=== PATIENT | female | born 1960 | race Caucasian/White ===

== ENCOUNTER → 2016-04-04 | Outpatient (CLI) | payer MEDICARE, OTHER ==
[2016-04-04 15:29] LABS: Blood Urea Nitrogen 15 mg/dL (7-17); Non-African American GFR(MDRD) 51 (>60 ml/min/1.73 sqM)
--- NOTE | 2016-04-04 16:15 | CT ---
EXAMINATION TYPE: CT abdomen pelvis w con DATE OF EXAM: 04/04/2016 3:52 PM COMPARISON: Prior CT scan first of April 2011 CTA abdominal aorta HISTORY: PT STATES OF ABDOMINAL DISTENTION X2 YEARS. CT DLP: 430.6 mGycm Automated exposure control for dose reduction was used. TECHNIQUE: Helical acquisition of images was performed from the lung bases through the pelvis. CONTRAST: Performed with Oral Contrast and with IV Contrast, patient injected with 90 mL of Visipaque 320. FINDINGS: LUNG BASES: There is some honeycombing at the posterior lung bases, prominence of interstitium compat ible with idiopathic pulmonary fibrosis. No pleural or pericardial effusion. LIVER/GB: The liver shows low attenuation and is enlarged compatible with fatty infiltration. Low-att enuation focus within the right lobe shows nodular enhancement likely hemangioma similar to prior exa m. Patient is post cholecystectomy. PANCREAS: No significant abnormality is seen. SPLEEN: No significant abnormality is seen. ADRENALS: No significant abnormality is seen. KIDNEYS: There is a retroaortic left renal vein. RETROPERITONEAL ADENOPATHY: None visualized REPRODUCTIVE ORGANS: Uterus is absent, suspect the left ovarian and right ovarian remnants are in ernie ce and are unremarkable. URINARY BLADDER: No significant abnormality is seen. PELVIC ADENOPATHY: Surgical clips are present in the right groin, no pelvic adenopathy evident. A ga llstone: Restaging of the OSSEOUS STRUCTURES: The appendix is normal. There is thickening along the sigmoid colon, difficult t o exclude a mucosal lesion.. BOWEL: No significant abnormality is seen. OTHER: Abdominal aortic aneurysm in the infrarenal location now measures approximately 4.3 cm in grea test dimension which is increased slightly compared to prior when it measured approximately 4 cm. IMPRESSION: FATTY INFILTRATION OF THE LIVER WITH PROBABLE HEMANGIOMA. INTERVAL INCREASE IN SIZE IN PATIENT'S ABDO ILENE AORTIC ANEURYSM DESCRIBED. POSTOP CHANGES. FINDINGS WITHIN THE SIGMOID COLON DESCRIBED. A DDITIONAL FINDINGS ABOVE.
== END | disposition home or self-care (01) ==
LOC: RADCTMAIN 13:35
PROVIDERS: ATTEND Family Medicine
DX: K76.0 Fatty (change of) liver, not elsewhere classified (principal); I71.4 Abdominal aortic aneurysm, without rupture; Z98.890 Other specified postprocedural states
CPT/HCPCS: 82565; 84520; 74177; 36415; Q9967

== ENCOUNTER → 2016-04-05 | Outpatient (CLI) | payer MEDICARE, OTHER ==
--- NOTE | 2016-04-05 12:41 | FL ---
COMPARISON: NONE HISTORY: Dysphasia A number of thin and thick substances were ingested under the care of the department of speech pathol ogy. There is no evidence of aspiration or penetration. There is previous cervical spine surgery. 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 There is vallecular pooling. IMPRESSION: 1. No evidence of aspiration or penetration.
== END | disposition home or self-care (01) ==
LOC: RADFLMAIN 10:59
PROVIDERS: ATTEND Otolaryngology
DX: R13.10 Dysphagia, unspecified (principal)
CPT/HCPCS: 74230

== ENCOUNTER → 2016-06-01 | Outpatient (CLI) | payer MEDICARE, OTHER ==
--- NOTE | 2016-06-01 14:20 | XR ---
EXAMINATION TYPE: XR wrist complete LT DATE OF EXAM: 06/01/2016 2:16 PM COMPARISON: NONE HISTORY: Pain TECHNIQUE: Four views submitted. FINDINGS: The osseous structures are intact. The joint spaces are preserved and there is no acute fracture or dislocation. Soft tissue edema overlying the dorsum of the wrist noted. IMPRESSION: 1. No definite acute fracture or dislocation if symptoms persist, follow-up study in 7 to 10 days wo uld be suggested. 2. There is soft tissue edema overlying the dorsum of the wrist.
== END ==
LOC: RADXRMAIN 13:56
PROVIDERS: ATTEND Family Medicine
DX: R60.0 Localized edema (principal)

== ENCOUNTER 2016-07-24 17:12 | Inpatient (IN) | payer MEDICARE, OTHER ==
[2016-07-24] MEDS ORDERED: IPRATROPIUM-ALBUTEROL 3 ML NEB INHALATION STA (17:35)
[2016-07-24] MEDS ORDERED: NITROGLYCERIN SL TABS 0.4 MG TAB SUBLINGUAL STA (17:35)
--- NOTE | 2016-07-24 17:46 | ED ---
Chest Pain HPI - General Chief Complaint: Chest Pain Stated Complaint: chest & throat pain Time Seen by Provider: 07/24/16 17:25 Source: patient, RN notes reviewed Mode of arrival: wheelchair Limitations: no limitations - History of Present Illness Initial Comments: This is a 55-year-old female history of peripheral vascular disease but no history of heart disease who had the onset earlier today of chest pain mostly mid sternal sharp and tight in nature moderate in severity some associated shortness breath. She has no cough or phlegm production fevers chills or sweats she has been doing yardwork. Chills as had diaphoresis with this pain and some difficulty breathing. She denies any phlegm production MD Complaint: chest pain - Related Data Home Medications Medication Instructions Recorded Confirmed ALPRAZolam [Xanax] 0.5 mg PO BID PRN 03/07/15 07/24/16 Fenofibrate 160 mg PO DAILY 03/07/15 07/24/16 Magnesium Oxide [Mag-Ox] 400 mg PO DAILY 03/07/15 07/24/16 oxyCODONE-APAP 10-325MG [Percocet 1 tab PO Q8HR PRN 03/07/15 07/24/16 10-325 mg] Aspirin 81 mg PO DAILY 07/24/16 07/24/16 Ergocalciferol [Vitamin D2 50,000 unit PO Q14D 07/24/16 07/24/16 (DRISDOL)] FLUoxetine HCL [PROzac] 40 mg PO DAILY 07/24/16 07/24/16 Omeprazole [PriLOSEC] 20 mg PO DAILY 07/24/16 07/24/16 Previous Rx's Medication Instructions Recorded Atorvastatin [Lipitor] 40 mg PO DAILY #30 tab 03/13/15 Allergies Allergy/AdvReac Type Severity Reaction Status Date / Time amoxicillin Allergy Itching Verified 07/24/16 18:08 diazepam [From Valium] Allergy Hallucinati Verified 07/24/16 18:08 ons erythromycin base Allergy Nausea & Verified 07/24/16 18:08 Vomiting STEROIDS AdvReac EYE Uncoded 07/24/16 19:06 PROBLEMS Review of Systems ROS Statement: Those systems with pertinent positive or pertinent negative responses have been documented in the HPI. ROS Other: All systems not noted in ROS Statement are negative. EKG Findings - EKG Results: EKG: interpreted by ERMD, sinus rhythm (Normal sinus rhythm rate of 90. Interval 150 to QRS of 86 daily since QTC of 362/442 this is a normal-appearing EKG) Past Medical History Past Medical History: Hyperlipidemia, Hypertension Additional Past Medical History / Comment(s): periods of syncopy History of Any Multi-Drug Resistant Organisms: None Reported Past Surgical History: Back Surgery, Orthopedic Surgery Additional Past Surgical History / Comment(s): carotid artery surgery. neck and back sx, rt thumb sx for trigger thumb, fem pop bypass rt side, Past Anesthesia/Blood Transfusion Reactions: No Reported Reaction Past Psychological History: Anxiety Smoking Status: Current every day smoker Past Alcohol Use History: None Reported Additional Past Alcohol Use History / Comment(s): smokes 1/2 ppd for past 30 yrs Past Drug Use History: None Reported - Past Family History Mother Family Medical History: Hyperlipidemia, Hypertension Sister(s) Family Medical History: Diabetes Mellitus General Exam - General Exam Comments Initial Comments: This is a well-developed well-nourished awake alert anxious appearing female she is tearful. Limitations: no limitations General appearance: alert, anxious, in distress Head exam: Present: atraumatic, normocephalic, normal inspection Eye exam: Present: normal appearance, PERRL, EOMI. Absent: scleral icterus, conjunctival injection, periorbital swelling ENT exam: Present: normal exam, mucous membranes moist Neck exam: Present: normal inspection. Absent: tenderness, meningismus, lymphadenopathy Respiratory exam: Present: chest wall tenderness, decreased breath sounds. Absent: respiratory distress, wheezes, rales, rhonchi, stridor Cardiovascular Exam: Present: regular rate, normal rhythm, normal heart sounds. Absent: systolic murmur, diastolic murmur, rubs, gallop, clicks GI/Abdominal exam: Present: soft, normal bowel sounds. Absent: distended, tenderness, guarding, rebound, rigid Extremities exam: Present: normal inspection, full ROM, normal capillary refill. Absent: tenderness, pedal edema, joint swelling, calf tenderness Back exam: Present: normal inspection Neurological exam: Present: alert, oriented X3, CN II-XII intact Psychiatric exam: Present: normal affect, normal mood Skin exam: Present: warm, intact, normal color, diaphoretic. Absent: rash Course Vital Signs 07/24/16 07/24/16 07/24/16 17:20 17:35 17:50 Temperature 97.8 F Pulse Rate 98 80 92 Respiratory 20 20 Rate Blood Pressure 175/97 125/80 O2 Sat by Pulse 98 100 Oximetry 07/24/16 07/24/16 07/24/16 17:56 18:01 18:21 Temperature Pulse Rate 97 94 Respiratory 22 Rate Blood Pressure 123/77 152/67 O2 Sat by Pulse 99 Oximetry 07/24/16 07/24/16 07/24/16 19:21 20:00 21:15 Temperature Pulse Rate 88 88 92 Respiratory 20 20 20 Rate Blood Pressure 140/80 144/80 138/68 O2 Sat by Pulse 99 99 99 Oximetry 07/24/16 22:15 Temperature Pulse Rate 98 Respiratory 20 Rate Blood Pressure 139/76 O2 Sat by Pulse 99 Oximetry Chest Pain MDM - MDM Patient still complains of chest pain does seem to be totally reproducible however but atypical with some radiation. Initial cardiac workup was negative x -rays are nonspecific CAT scan does show evidence of a abdominal aortic aneurysm that the patient has no bowel however does produce get somewhat larger. No evidence of a leak. She denies any abdominal pain or back pain. The symptoms the patient's risks patient will be admitted for evaluation of chest pain with consultation from cardiology as well as vascular surgery. Disposition Clinical Impression: Atypical chest pain, Chest wall syndrome Disposition: ADMITTED IP TO THIS [facility] Condition: Stable Referrals: Fredy Pope DO [Primary Care Provider] - 1-2 days
[2016-07-24 17:52] LABS: Basophils # (A) 0.1 k/uL (0-0.2); Basophils % (A) 1 %; CH 28.6; CHCM 32.8; Eosinophils # (A) 0.3 k/uL (0-0.7); Eosinophils % (A) 5 %; HCT 38.7 % (34.0-46.0); HDW 2.55; HGB 12.5 gm/dL (11.4-16.0); Luc # (Auto) 0.15; Luc % (Auto) 3; Lymphocytes # (A) 1.3 k/uL (1.0-4.8); Lymphocytes % (A) 21 %; MCH 28.2 pg (25.0-35.0); MCHC 32.3 g/dL (31.0-37.0); MCV 87.5 fL (80.0-100.0); Mean Platelet Volume 6.8; Monocytes # (A) 0.4 k/uL (0-1.0); Monocytes % (A) 7 %; Neutrophils % (A) 64 %; RBC 4.43 m/uL (3.80-5.40); RDW 14.6 % (11.5-15.5); WBC 6.2 k/uL (3.8-10.6); WBC (Perox) 6.31
[2016-07-24 18:10] LABS: Partial Thromboplastin Time 26.4 sec (22.0-30.0); Prothrombin Time 10.6 sec (9.0-12.0)
[2016-07-24 18:11] LABS: Calcium 9.9 mg/dL (8.4-10.2); Magnesium 1.7 mg/dL (1.6-2.3); Total Bilirubin 0.6 mg/dL (0.2-1.3); Total Protein 7.2 g/dL (6.3-8.2)
[2016-07-24] MEDS ORDERED: diphenhydrAMINE 50 MG/ML 1 ML VIAL IVP STA (18:11)
--- NOTE | 2016-07-24 18:18 | XR ---
EXAMINATION TYPE: XR chest 2V DATE OF EXAM: 07/24/2016 6:12 PM COMPARISON: 03/13/2015 HISTORY: Chest pain TECHNIQUE: Frontal and lateral views of the chest are obtained. FINDINGS: Heart is normal. Lungs are clear of consolidation. There are no hilar masses. There are ch est leads. Thoracic aorta is atheromatous. There is no pleural effusion. IMPRESSION: No active cardiopulmonary disease. No change.
[2016-07-24 18:28] LABS: Creatine Kinase 124 U/L (30-135)
[2016-07-24 18:41] LABS: Creatine Kinase MB 1.6 ng/mL (0.0-2.4); Troponin I <0.012 ng/mL (0.000-0.034)
[2016-07-24] MEDS ORDERED: SODIUM CHLORIDE 0.9% 1,000 ML IV STA (19:04)
[2016-07-24] MEDS ORDERED: MAGNESIUM SULFATE-D5W PMX 1 GM in DEXTROSE/WATER 1 100ML.BAG IVPB ONE (19:05)
[2016-07-24] MEDS ORDERED: RX INFO: IV CONTRAST WAS GIVEN 1 EACH MISC MISCELLANE PRN (19:11)
--- NOTE | 2016-07-24 21:57 | CT ---
EXAMINATION TYPE: CT angio thoracic/abd aorta DATE OF EXAM: 07/24/2016 9:27 PM COMPARISON: NONE HISTORY: Chest pain and pressure CT DLP: 688.3 mGycm Automated exposure control for dose reduction was used. CONTRAST: Performed with IV Contrast, patient injected with 80 mL of Visipaque 320. FINDINGS: There are 3-D post processed images. There are small emphysematous blebs at the lung apices. There is no sign of a pulmonary mass. Thoracic aorta shows atherosclerotic plaque formation. There is more extensive plaque in the lower ab dominal aorta. There is a 3.5 cm fusiform lower abdominal aortic aneurysm. There is thrombus that teresa sures up to almost 2 cm. There is focal bulging of the lower abdominal aorta posteriorly to the left side. I see no contrast extravasation. The liver spleen pancreas appear normal. There are clips from cholecystectomy. There is patency of th e superior mesenteric artery and the celiac artery. There is bilateral patency of the renal arteries. Kidneys have fairly normal size and contour. There is no hydronephrosis. Bladder distends smoothly. There is moderate plaque formation involving the iliac arteries. 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 I see no definite hemodynamically significant stenosis. I see no intes tinal wall thickening. There are no dilated loops. IMPRESSION: THERE IS A 3.5 CM LOWER ABDOMINAL AORTIC ANEURYSM WITH IRREGULAR PLAQUE FORMATION AND FOCAL ANEURYSMA L CHANGE POSTERIORLY ON THE LEFT SIDE. NO EVIDENCE OF LEAKAGE. 1.5 CM ANEURYSM OF THE DISTAL LEFT COM MON ILIAC ARTERY. THE ANEURYSM OF THE AORTA HAS PROGRESSED COMPARED TO OLD CT SCAN OF 04/21/2011. AORTA HAS INCREASED FROM 2.5 CM TO 3.5 CM SINCE LAST EXAM. IRREGULAR LEFT SIDE OF THE ANEURYSM IS SIGNIFIC ANTLY WORSE AND I THINK THAT FOLLOW-UP IS WARRANTED.
[2016-07-24] MEDS ORDERED: HEPARIN SODIUM,PORCINE 5,000 UNIT/ML 1 ML VIAL IV ONE (22:55)
[2016-07-24] MEDS ORDERED: NITROGLYCERIN SL TABS 0.4 MG TAB SUBLINGUAL PRN (22:55)
[2016-07-24] MEDS ORDERED: ALPRAZolam 0.5 MG TAB PO PRN (22:59)
[2016-07-24] MEDS ORDERED: oxyCODONE-APAP 10-325MG 1 EACH TAB PO PRN (22:59)
[2016-07-24] MEDS ORDERED: HEPARIN SODIUM,PORCINE/D5W PMX 25,000 UNIT in DEXTROSE/WATER 1 500ML.BAG IV SCH (23:00)
[2016-07-24] MEDS ORDERED: ERGOCALCIFEROL 50,000 UNIT CAP PO SCH (23:00)
[2016-07-24] MEDS ORDERED: SODIUM CHLORIDE 0.9% 1,000 ML IV SCH (23:00)
[2016-07-24] MEDS ORDERED: NICOTINE 14MG/24HR PATCH TRANSDERM STA (23:06)
[2016-07-25 00:10] VITALS: BMI 23.0
[2016-07-25] MEDS: NITROGLYCERIN OINT 1 INCH/GM PACKET TOPICAL SCH ×5 (00:25→23:50)
[2016-07-25 00:35] LABS: Creatine Kinase 95 U/L (30-135)
[2016-07-25 00:49] LABS: Creatine Kinase MB 1.2 ng/mL (0.0-2.4); Troponin I <0.012 ng/mL (0.000-0.034)
[2016-07-25 06:50] LABS: Cholesterol 120 mg/dL (<200); HDL Cholesterol 38 mg/dL (40-60); Triglycerides 123 mg/dL (<150)
[2016-07-25 07:12] LABS: Creatine Kinase 82 U/L (30-135)
[2016-07-25 07:24] LABS: Troponin I <0.012 ng/mL (0.000-0.034)
[2016-07-25] MEDS ORDERED: REGADENOSON 0.4 MG/5 ML SYRINGE IV ONE (07:35)
[2016-07-25] MEDS ORDERED: AMINOPHYLLINE 500 MG/20 ML VIAL IV PRN (07:35)
--- NOTE | 2016-07-25 08:22 | CONS ---
DATE OF CONSULTATION: CHIEF COMPLAINT: Chest pain. Rosamaria is a 55-year-old lady with history of peripheral vascular disease, status post surgery over the right leg. Carotid stenosis, status post right carotid endarterectomy, who presented to hospital with symptoms of chest pain. She has as part of her work-up she underwent a CT scan of the chest that revealed a 3.5 cm lower abdominal aortic aneurysm, which has grown somewhat compared to her previous work-up. She however does not have any symptoms referable to abdominal aortic aneurysm. The chest discomfort is precordial without definite radiation to neck, arm or back unassociated with diaphoresis and unrelated to exertion. Her d-dimer was slightly elevated. CT scan of the chest was done, which for unclear reasons has not commented on for pulmonary embolism but has had an extensive discussion about the aorta. At the time of my evaluation this morning, she is pain free, hemodynamically stable and in no apparent distress. Past medical history is significant for peripheral vascular disease and dyslipidemia, and chronic back pain. Medications include: 1. Xanax. 2. Fenofibrate. 3. Lipitor. 4. Aspirin. 5. Prilosec. 6. Prozac. 7. Percocet. ALLERGIC TO AMOXICILLIN, VALIUM, ERYTHROMYCIN AND STEROIDS. FAMILY HISTORY: Negative for premature coronary artery disease. Social history is significant for smoking. There is no history of ETOH abuse, or drug abuse. REVIEW OF SYSTEMS: HEENT: Unremarkable. CARDIAC: As described above. RESPIRATORY: Negative. GI: Negative. GENITOURINARY: Negative. MUSCULOSKELETAL: Significant for arthritis. PSYCHOSOCIAL: Negative. ENDOCRINE: Negative. DERM: Negative. CONSTITUTIONAL: Negative. Oncological: Negative. The rest of the system review is not relevant. On exam, she is comfortable at rest. Vital signs are stable. There is no jugular venous distention. Carotid upstroke is normal. There is no bruit. Chest exam reveals good air entry bilaterally. Heart exam reveals first and second heart sounds. Systolic murmur in the left lower sternal border. Abdomen soft. Exam of the extremities reveals diminished pulses over both dorsalis pedis, ( ) pulses are diminished. Labs show that the cardiac enzymes are negative. D-dimer is slightly elevated. ASSESSMENT: Chest pain seems atypical. PLAN: I am going to obtain stress test on her. If this is negative, she can be discharged home. If this is abnormal, we can consider further work-up and see if we can get any information on the pulmonary arteries from the CT chest that she had. If not, we can get a V/Q scan.
[2016-07-25] MEDS ORDERED: ASPIRIN 325 MG TAB PO SCH (09:00)
[2016-07-25] MEDS: ENOXAPARIN 40 MG/0.4 ML SYRINGE SQ SCH (10:32)
[2016-07-25] MEDS: FLUoxetine HCL 20 MG CAP PO SCH (10:34)
[2016-07-25] MEDS: ATORVASTATIN 40 MG TAB PO SCH (10:34)
[2016-07-25] MEDS: FENOFIBRATE 160 MG TAB PO SCH (10:34)
[2016-07-25] MEDS: MAGNESIUM OXIDE 400 MG TAB PO SCH (10:34)
[2016-07-25] MEDS: PANTOPRAZOLE 40 MG TABLET PO SCH (10:34)
--- NOTE | 2016-07-25 10:37 | ECHOF ---
Referral Reason:Chest pain MEASUREMENTS -------- HEIGHT: 162.6 cm WEIGHT: 60.3 kg BP: 91/55 IVSd: 1.1 cm (0.6 - 1.1) LVIDd: 3.2 cm (3.9 - 5.3) LVPWd: 1.2 cm (0.6 - 1.1) IVSs: 1.7 cm LVIDs: 1.4 cm LVPWs: 1.9 cm Ao Diam: 2.8 cm (2.0 - 3.7) AV Cusp: 1.9 cm (1.5 - 2.6) LA Diam: 3.0 cm (2.7 - 3.8) MV EXCURSION: 12.842 mm (> 18.000) MV EF SLOPE: 70 mm/s (70 - 150) EPSS: 0.4 cm MV E Russ: 0.87 m/s MV DecT: 173 ms MV A Russ: 0.80 m/s MV E/A Ratio: 1.09 RAP: 5.00 mmHg RVSP: 27.03 mmHg FINDINGS -------- Sinus rhythm. This was a technically good study. There is borderline concentric left ventricular hypertrophy. Overall left ventricular systolic function is normal with, an EF between 55 - 60 %. The right ventricle is normal in size and function. The left atrium is normal in size. The right atrium is normal in size. The aortic valve was not well visualized. Mild mitral regurgitation is present. Trace tricuspid regurgitation present. The right ventricular systolic pressure, as measured by Doppler, is 27.03mmHg. The pulmonic valve was not well visualized. The aortic root size is normal. The pericardium is normal. CONCLUSIONS -------- 1. Sinus rhythm. 2. Trace tricuspid regurgitation present. 3. The right ventricular systolic pressure, as measured by Doppler, is 27.03mmHg. 4. The pulmonic valve was not well visualized. 5. The aortic root size is normal. 6. The pericardium is normal. 7. This was a technically good study. 8. There is borderline concentric left ventricular hypertrophy. 9. Overall left ventricular systolic function is normal with, an EF between 55 - 60 %. 10. The right ventricle is normal in size and function. 11. The left atrium is normal in size. 12. The right atrium is normal in size. 13. The aortic valve was not well visualized. 14. Mild mitral regurgitation is present. CONFIGURATION SPECIALIST: Deirdre Giron RDCS
--- NOTE | 2016-07-25 10:52 | NM ---
EXAMINATION TYPE: NM stress lexiscan cardiolite DATE OF EXAM: 07/25/2016 COMPARISON: NONE HISTORY: Chest pain TECHNIQUE: After the intravenous administration of 10.84 mCi Tc 99m Sestamibi - Cardiolite resting S PECT images acquired 45 minutes post injection. The patient received 0.4mg Lexiscan, 27.2 mCi Tc 99m Sestamibi - Stress images obtained [address] injection FINDINGS: Review of stress and rest SPECT images demonstrates no distinct perfusion abnormality on stress as co mpared to rest images. Gated analysis shows normal wall motion with an estimated left ventricular ej ection fraction of 68 %. IMPRESSION: No scintigraphic evidence for reversible ischemia. Consider echocardiography for elevated ejection fr action.
--- NOTE | 2016-07-25 11:09 | EST ---
DATE OF SERVICE: 07/25/2016 AGE: 55Y SEX: F HT: 5'4" WT: 125 lbs. Protocol Alvaro: Other: Lexiscan Cardiolite Stage: Dur. of Exercise: *Heart Rate Blood Pressure *Rest: 78 Rest: 119/90 * *Max. Achieved: 107 Maximum BP: 122/54 85% PMHR: 141 100% PMHR: 166 *METS: INDICATION OF THE STUDY: Chest discomfort. MEDICATIONS: STRESS DATA: Pretesting physical examination showed a heart rate of 78, pressure is 119/90 mmHg. Baseline EKG showed sinus rhythm. A 0.4 mg of Lexiscan was given to the patient over 15 seconds per protocol. The max heart rate was 107 beats per minute. The maximum blood pressure was 122/54 mmHg. Clinically, the patient did not have any symptoms of chest pain or discomfort. The EKG did not show any significant ST or T wave abnormalities consistent with ischemia. CONCLUSION: 1. Nondiagnostic electrocardiogram stress testing in response to Lexiscan. 2. Please follow up on the Cardiolite portion on a separate report from the radiology department.
[2016-07-25] MEDS ORDERED: RX INFO: IV CONTRAST WAS GIVEN 1 EACH MISC MISCELLANE PRN (13:37)
[2016-07-25] MEDS: NICOTINE 21MG/24HR PATCH TRANSDERM SCH (14:39)
--- NOTE | 2016-07-25 18:18 | HP ---
DATE OF ADMISSION: 07/25/2016 PRESENTING COMPLAINT: Chest pain. HISTORY OF PRESENTING COMPLAINT: This is a very pleasant 55-year-old patient of Dr. Pope. Patient's chronic stable medical conditions include anxiety, hypercholesterolemia, hypertension, peripheral artery disease, chronic kidney disease, arthritis and pain in neck. Follows with Dr. Hill. Patient also has got emphysema. Patient continues to smoke. Patient presented with chest pressure for 2 days, feels like an elephant sitting on her chest. Has been short of breath and no dizziness. Had episodes of perspiration, present on and off. Denies any wheezing. Admitted for the same for cardiac work-up. REVIEW OF SYSTEMS: CONSTITUTIONAL: Tired. HEENT: None. RESPIRATORY: Occasionally short of breath. CARDIOVASCULAR: As above. GASTROINTESTINAL: None. GENITOURINARY: None. MUSCULOSKELETAL: Pain in the joints. Dermatological: None. HEMATOLOGICAL: None. LYMPHATICS: None. PSYCHIATRY: None. NEUROLOGICAL: None. Past medical history: Anxiety, hypercholesterolemia, hypertension, peripheral artery disease, chronic kidney disease, carotid artery disease, smoking. PAST SURGICAL HISTORY: Back surgery, neck surgery and carotid surgery. SOCIAL HISTORY: Lives by herself. Patient pretty much smokes close to a pack a day for many years. Denies alcohol. HOME MEDICATIONS: 1. Percocet 10 one tablet q.8 p.r.n. 2. Magnesium oxide 400 mg a day. 3. TriCor 160 mg a day. 4. Xanax 0.5 p.o. b.i.d. 5. Prilosec 20 mg a day. 6. Prozac 40 mg a day. 7. Vitamin D2, 50,000 units every 14 days. 8. Aspirin 81 mg a day. 9. Lipitor 40 mg a day. ALLERGIES: AMOXICILLIN, VALIUM AND ERYTHROMYCIN, STEROIDS. On examination, temperature 98.5, pulse ox 99, respirations 18, blood pressure 127/86, pulse ox 96% on room air. GENERAL APPEARANCE: Average build, sitting up, not in distress. EYES: Pupils equal. Conjunctivae normal. HEENT: Oral cavity normal. NECK: JVD is not raised. Mass not palpable. RESPIRATORY: Effort normal. LUNGS: Diminished breath sounds. CARDIOVASCULAR: First and second sounds normal. No edema. ABDOMEN: Soft, nontender. Liver and spleen not palpable. LYMPHATIC: No lymph node palpable in neck or axillae. PSYCHIATRY: Alert and oriented x3. Mood and affect normal. NEUROLOGICAL: Pupils equal. Cranial nerves grossly intact. Power and sensation grossly intact. INVESTIGATIONS: White count 6.2, hemoglobin 12. Potassium 4.0, BUN 23, creatinine 1.30, LDL 57. EKG shows normal sinus rhythm. Patient had CT angiogram of the aorta, 3.5 cm lower abdominal aortic aneurysm and the left common iliac artery is 0.5 cm aneurysm. 2-D echocardiogram shows no wall motion abnormality and an EF is 55% to 60%. ASSESSMENT: 1. Unstable angina in a patient with multiple vascular problems including carotid stenosis, peripheral artery disease. Patient continues to smoke and chronic kidney disease, rather cardiac sounding presentation. 2. Chronic nicotine dependence. Patient is a smoker. 3. Emphysema in an active smoker. 4. Chronic anxiety, controlled. 5. Hypercholesterolemia. 6. Essential hypertension. 7. Peripheral artery disease. 8. Chronic kidney disease, stage II and hypertensive nephrosclerosis. 9. Aortic aneurysm 3.5 cm. PLAN: Cardiology is consulted who ordered a stress test. Patient has an aortic aneurysm of 3.1 cm, some progression at this point, ( ) number. Care was discussed with patient and his significant other. We will give a nicotine patch. We will order a CT angiogram, ( ) to be done tomorrow morning. In the meantime, we will continue patient with ( ). We will put the patient on therapeutic dose of Lovenox. Patient needs to be hospitalized at least for 2 days to rule this problem out.
[2016-07-25] MEDS: SODIUM CHLORIDE 0.9% 1,000 ML IV SCH (21:08)
[2016-07-26 06:06] LABS: Calcium 9.5 mg/dL (8.4-10.2); Potassium 4.5 mmol/L (3.5-5.1)
[2016-07-26] MEDS: SODIUM CHLORIDE 0.9% 1,000 ML IV SCH (06:36)
[2016-07-26] MEDS: NITROGLYCERIN OINT 1 INCH/GM PACKET TOPICAL SCH ×2 (06:36→11:53)
[2016-07-26 07:11] VITALS: RESP 16
--- NOTE | 2016-07-26 08:56 | PN ---
55-year-old lady who was admitted to hospital with chest pain, ruled out for myocardial infarction, had a stress test yesterday that revealed normal myocardial perfusion function. I reviewed her echo also. She has extensive history of peripheral vascular disease and was found to have incidental abdominal aortic aneurysm, which is not large enough to require any intervention at this time. The patient has a history of carotid stenosis and underwent right carotid endarterectomy in the past. The patient had unexplained elevated d-dimer and she apparently having a CT scan of the chest today to complete her work-up. On exam, she is comfortable at rest. Vital signs are stable. There is no jugular venous distention. Carotid upstroke is normal. There is no bruit. Chest is clear to auscultation and percussion. Heart exam reveals first and second heart sounds. No gallop. No murmur. Abdomen soft, nontender. Exam of extremities did not reveal edema. Peripheral pulses are felt. Patient is currently on aspirin, Lipitor and Lofibra, Nitro-Bid and sublingual nitroglycerin p.r.n. basis. Please discharge her home on the same medications including Imdur 30 mg daily. I will follow her up in my office and we will see how she does clinically. Thank you for allowing me to participate in the care of this pleasant lady.
[2016-07-26] MEDS ORDERED: ASPIRIN 81 MG CHEW PO SCH (09:00)
--- NOTE | 2016-07-26 09:50 | P.GSCN ---
<Deirdre Mims - Last Filed: 07/26/16 09:41> History of Present Illness Consult date: 07/26/16 Reason for Consult: Abdominal aortic aneurysm, treatment recommendations Requesting physician: Jaya George History of present illness: This 55 year old female presented to ER with c/o substernal chest pain which was worse with deep inspiration and laying down. She denied shortness of breath /nausea/vomitting. She was admitted for cardiac workup. In the course of her workup she had a CT of the chest which demonstrated a 3.5 cm abdominal aortic aneurysm. This was compared to a CT from 2011 when her AAA was 2.5 cm. Due to the increase in size, Dr. Freeman was consulted for treatment recommendations. She denies any abdominal pain. Review of Systems 14 point review of systems was completed and was negative except as noted. - Cardiovascular Reports as per HPI - Respiratory Reports as per HPI Past Medical History Past Medical History: GERD/Reflux, Hyperlipidemia, Hypertension, Syncope Additional Past Medical History / Comment(s): periods of syncopy History of Any Multi-Drug Resistant Organisms: None Reported Past Surgical History: Back Surgery, Hysterectomy, Orthopedic Surgery Additional Past Surgical History / Comment(s): carotid artery surgery. neck and back sx, rt thumb sx for trigger thumb, fem pop bypass rt side, partial hysterectomy, left tube and uterus removed Past Anesthesia/Blood Transfusion Reactions: No Reported Reaction Past Psychological History: Anxiety Smoking Status: Current every day smoker Past Alcohol Use History: None Reported Additional Past Alcohol Use History / Comment(s): smokes 1 ppd for past 30 yrs Past Drug Use History: None Reported - Past Family History Mother Family Medical History: Hyperlipidemia, Hypertension Sister(s) Family Medical History: Diabetes Mellitus Father Family Medical History: Hyperlipidemia Additional Family Medical History / Comment(s): On heart meds. Blocked arteries Medications and Allergies Home Medications Medication Instructions Recorded Confirmed Type ALPRAZolam [Xanax] 0.5 mg PO BID PRN 03/07/15 07/24/16 History Fenofibrate 160 mg PO DAILY 03/07/15 07/24/16 History Magnesium Oxide [Mag-Ox] 400 mg PO DAILY 03/07/15 07/24/16 History oxyCODONE-APAP 10-325MG [Percocet 1 tab PO Q8HR PRN 03/07/15 07/24/16 History 10-325 mg] Aspirin 81 mg PO DAILY 07/24/16 07/24/16 History Ergocalciferol [Vitamin D2 50,000 unit PO Q14D 07/24/16 07/24/16 History (DRISDOL)] FLUoxetine HCL [PROzac] 40 mg PO DAILY 07/24/16 07/24/16 History Omeprazole [PriLOSEC] 20 mg PO DAILY 07/24/16 07/24/16 History Allergies Allergy/AdvReac Type Severity Reaction Status Date / Time amoxicillin Allergy Itching Verified 07/24/16 23:54 diazepam [From Valium] Allergy Hallucinati Verified 07/24/16 23:54 ons erythromycin base Allergy Nausea & Verified 07/24/16 23:54 Vomiting STEROIDS AdvReac EYE Uncoded 07/24/16 23:54 PROBLEMS Surgical - Exam Vital Signs Temp Pulse Resp BP Pulse Ox 97.8 F 98 20 175/97 98 07/24/16 17:20 07/24/16 17:20 07/24/16 17:20 07/24/16 17:20 07/24/16 17:20 - General well developed, well nourished, no distress, no pain - Eyes PERRL, normal ocular movement - ENT no hearing loss - Neck trachea midline - Respiratory normal expansion, normal respiratory effort, clear to auscultation - Cardiovascular Rhythm: regular Heart Sounds: normal: S1, S2 - Abdomen No palpable mass Abdomen: soft, non tender, bowel sounds - Genitourinary Deferred - Rectum Deferred - Integumentary no rash - Neurologic normal coordination, normal sensation - Musculoskeletal normal gait - Psychiatric oriented to time, oriented to person, oriented to place, speech is normal, memory intact Results - Labs 07/24/16 17:30 07/26/16 05:36 Abnormal Lab Results - Last 24 Hours (Table) 07/26/16 Range/Units 05:36 Creatinine 1.20 H (0.52-1.04) mg/dL Diabetes panel 07/26/16 Range/Units 05:36 Sodium 137 (137-145) mmol/L Potassium 4.5 (3.5-5.1) mmol/L Chloride 102 (98-107) mmol/L Carbon Dioxide 26 (22-30) mmol/L BUN 17 (7-17) mg/dL Creatinine 1.20 H (0.52-1.04) mg/dL Glucose 97 (74-99) mg/dL Calcium 9.5 (8.4-10.2) mg/dL Calcium panel 07/26/16 Range/Units 05:36 Calcium 9.5 (8.4-10.2) mg/dL Pituitary panel 07/26/16 Range/Units 05:36 Sodium 137 (137-145) mmol/L Potassium 4.5 (3.5-5.1) mmol/L Chloride 102 (98-107) mmol/L Carbon Dioxide 26 (22-30) mmol/L BUN 17 (7-17) mg/dL Creatinine 1.20 H (0.52-1.04) mg/dL Glucose 97 (74-99) mg/dL Calcium 9.5 (8.4-10.2) mg/dL Adrenal panel 07/26/16 Range/Units 05:36 Sodium 137 (137-145) mmol/L Potassium 4.5 (3.5-5.1) mmol/L Chloride 102 (98-107) mmol/L Carbon Dioxide 26 (22-30) mmol/L BUN 17 (7-17) mg/dL Creatinine 1.20 H (0.52-1.04) mg/dL Glucose 97 (74-99) mg/dL Calcium 9.5 (8.4-10.2) mg/dL - Imaging Chest x-ray: image reviewed CT scan - chest: image reviewed EKG: image reviewed Assessment and Plan (1) Abdominal aortic aneurysm Status: Acute (2) Hypertension Status: Acute (3) Hyperlipidemia Status: Acute (4) Tobacco dependence Status: Acute (5) S/P carotid endarterectomy Status: Acute (6) Atypical chest pain Status: Acute (7) Peripheral artery disease Status: Acute Plan: The patient was seen and examined. She is in no acute distress. Currently denies pain. Chart/diagnostics were reviewed. Case was discussed with Dr. Freeman. No surgical intervention, will continue to monitor abdominal aortic aneurysm. Follow up appointment made with Dr. Freeman. Recommend lifestyle modification including blood pressure control, heart healthy diet, refrain from smoking, increase activity and continued follow up appointment. Thank you for the consult. Please call us with any questions. Time with Patient: Greater than 30 <Tom Freeman - Last Filed: 07/27/16 10:20> History of Present Illness History of present illness: [employer] SERVICE MANAGER note reviewed and accepted. 1 cm change in infrarenal abdominal aortic aneurysm in 5 years. No need for change in current treatment patterns. Will follow-up in the office for surveillance of the abdominal aortic aneurysm. Surgical - Exam Osteopathic Statement: *. No significant issues noted on an osteopathic structural exam other than those noted in the History and Physical/Consult. Vital Signs Temp Pulse Resp BP Pulse Ox 97.8 F 98 20 175/97 98 07/24/16 17:20 07/24/16 17:20 07/24/16 17:20 07/24/16 17:20 07/24/16 17:20 Results - Labs 07/24/16 17:30 07/26/16 05:36
--- NOTE | 2016-07-26 11:22 | CT ---
EXAMINATION TYPE: CT angio chest DATE OF EXAM: 07/26/2016 COMPARISON: CTA chest from 2 days ago HISTORY: PE, Chest pain CT DLP: 206.30 mGycm. Automated Exposure Control for Dose Reduction was Utilized. CONTRAST: CTA scan of the thorax is performed with IV Contrast, patient injected with 80 ml mL of Visipaque 320 , pulmonary embolism protocol. MIP Images are created on CT scanner and reviewed. FINDINGS: LUNGS: Mild to moderate emphysematous change is present. There is apical and upper lung bleb formatio n. There is posterior lower lung oligemia and scattered peripheral fibrosis. There is new focal groun dglass opacity involving the right middle lobe seen best near axial image 75. There is new focal grou ndglass opacity involving anterior left lower lobe near axial image 89. No concerning parenchymal nod ule or mass is present bilaterally. There is new rounded atelectasis posterior medial left lung base on axial image 117. No pleural effusion or pneumothorax is seen. MEDIASTINUM: There is satisfactory enhancement of the pulmonary artery and its branches, there is no CT evidence for pulmonary embolism. There are no greater than 1 cm hilar or mediastinal lymph nodes. No cardiomegaly or pericardial effusion is seen. There is moderate to severe mixed plaque in the t horacic aorta redemonstrated most prominent in the descending aspect. Coronary artery calcification i s present which is noted marker for coronary artery disease in the LAD. OTHER: There is mild multilevel spurring in the thoracic spine. Cholecystectomy clips are noted on lo calizer image. IMPRESSION: 1. No CT evidence for pulmonary embolism. 2. Mild to moderate emphysematous change with new patchy edema and/or infiltrates involving the right middle lobe and left lower lobe, correlate for multifocal acute infectious process.
[2016-07-26 11:30] VITALS: BP 133/59; PULSE 89; TEMP 97.7
[2016-07-26] MEDS: ATORVASTATIN 40 MG TAB PO SCH (11:52)
[2016-07-26] MEDS: FLUoxetine HCL 20 MG CAP PO SCH (11:52)
[2016-07-26] MEDS: PANTOPRAZOLE 40 MG TABLET PO SCH (11:52)
[2016-07-26] MEDS: MAGNESIUM OXIDE 400 MG TAB PO SCH (11:52)
[2016-07-26] MEDS: ENOXAPARIN 40 MG/0.4 ML SYRINGE SQ SCH (11:52)
[2016-07-26] MEDS: FENOFIBRATE 160 MG TAB PO SCH (11:52)
[2016-07-26] MEDS: NICOTINE 21MG/24HR PATCH TRANSDERM SCH (11:52)
--- NOTE | 2016-07-27 17:05 | DS ---
DATE OF ADMISSION: 07/25/2016 DATE OF DISCHARGE: 07/26/2016 FINAL DIAGNOSES: 1. Unstable angina in a patient with multiple vascular problems, including carotid stenosis and peripheral arterial disease. Patient continues to smoke and has chronic kidney disease; urged to stop smoking. 2. Chronic nicotine dependence. Patient is a smoker. 3. Emphysema in an active smoker. 4. Chronic anxiety, controlled. 5. Hypercholesterolemia. 6. Essential hypertension. 7. Peripheral arterial disease. 8. Chronic kidney disease, stage II, and hypertensive nephrosclerosis. 9. Aortic aneurysm, 3.5 cm. CONSULTANTS: 1. Dr. Cintron from Cardiology. 2. Dr. Freeman from Cardiothoracic Surgery. HOSPITAL COURSE: Patient presented to the emergency department after having 2 days of chest pressure that felt like an elephant sitting on her chest. She had accompanying shortness of breath. No dizziness. Episode of sweating. Consequently patient arrived for cardiac workup. EKG was performed, Cardiology was consulted, nitroglycerin applied to patient. Stress test revealed a normal myocardial perfusion function. Echocardiogram was ordered and revealed incidental abdominal aortic aneurysm, which does not require any intervention at this time. Imdur was added to her medication regimen. Today patient has not had any further episodes of chest pain, sweating, nausea. She has been ambulatory in the hallway, tolerating her diet. Moved her bowels. Patient is feeling better and therefore will be discharged home. PHYSICAL EXAMINATION: RESPIRATORY: Effort somewhat labored. LUNGS: Diminished breath sounds bilaterally. CARDIOVASCULAR: First and second sounds noted. No edema. DISCHARGE MEDICATIONS: 1. Xanax 0.5 mg p.o. b.i.d. p.r.n. 2. Fenofibrate 160 mg p.o. daily. 3. Magnesium oxide 400 mg p.o. daily. 4. Percocet 10/325 one tablet p.o. q.8 hours p.r.n. 5. Lipitor 40 mg p.o. daily. 6. Aspirin 81 mg p.o. daily. 7. Vitamin D2 50,000 units p.o. every 14 days. 8. Prozac 40 mg p.o. daily. 9. Omeprazole 20 mg p.o. daily. 10. Imdur 30 mg p.o. daily. 11. Nicotine patch 21 mg patch 1 patch every day for 7 days. 12. Nitroglycerin sublingual tabs 0.4 mg sublingually q.5 minutes p.r.n. for chest pain. FOLLOWUP: Patient should follow up with attending physician Dr. Fredy Pope in 1 to 2 days; Dr. Villela of Cardiology in one week; and Dr. Freeman on August 11. DISPOSITION: Patient is stable and will be returning home with her . Patient was again counseled on the necessity of her smoking to stop. Patient also provided nicotine patch for said habit. Patient was seen and examined by nurse practitioner Gudelia Sahu, and all elements of the case were discussed with attending, Dr. George.
--- NOTE | 2016-07-28 17:38 | DS ---
DATE OF ADMISSION: 07/25/2016 DATE OF DISCHARGE: 07/26/2016 FINAL DIAGNOSES: 1. Chest pain, possible unstable angina, the patient has multiple coronary risk factors. 2. Chronic nicotine dependence. Patient is a smoker. 3. Emphysema in an active smoker. 4. Chronic anxiety. 5. Hypercholesterolemia. 6. Emphysema. 7. Essential hypertension. 8. Peripheral artery disease. 9. Chronic kidney stage II from hypertensive nephrosclerosis. 10. Abdominal aortic aneurysm 3.5 cm. CONSULTATION: Dr. Freeman from vascular, Dr. Yumiko Cintron from cardiology. HOSPITAL COURSE: This patient presented with chest pain. Nuclear stress test was negative. A 2-D echocardiogram showed EF 55% to 60%. Chest CTA was negative for PE. Patient had no clinical findings not suggestive of any pneumonia. I did talk to the patient and patient's , given that patient has coronary artery disease, peripheral artery disease, smoker I had a very strongly suspect the patient may have underlying coronary artery disease even though stress test negative. Hence we are putting the patient on nitrates. At this point the patient is very keen to go home. The patient advised to discontinue smoking. Patient should follow up with the interpreter deaf upon discharge. On examination, LUNGS: Decreased breath sounds. CARDIOVASCULAR: First and second sounds normal. I reviewed the discharge of my nurse practitioner, Ms. Sahu, and agreed to same. Additional findings as here. Follow-up as arranged. Discharge planning more than 35 minutes.
== END 2016-07-26 13:03 | disposition home or self-care (01) | DRG 313 ==
LOC: EC 17:12 → 3OBS 22:56 → OBSVTOIN 07-25 13:59
PROVIDERS: ADMIT Hospitalist; ATTEND Hospitalist
PROC: 4A12XM4 Monitoring of Cardiac Stress, External Approach (ICD-10-PCS; principal; 2016-07-25)
PROC: 3E033HZ Introduction of Radioactive Substance into Peripheral Vein, Percutaneous Approach (ICD-10-PCS; 2016-07-25)
PROC: C22G1ZZ Tomographic (Tomo) Nuclear Medicine Imaging of Myocardium using Technetium 99m (Tc-99m) (ICD-10-PCS; 2016-07-25)
DX: R07.9 Chest pain, unspecified (principal); I72.3 Aneurysm of iliac artery; J43.9 Emphysema, unspecified; I12.9 Hypertensive chronic kidney disease with stage 1 through stage 4 chronic kidney disease, or unspecified chronic kidney disease; E78.00 Pure hypercholesterolemia, unspecified; N18.2 Chronic kidney disease, stage 2 (mild); I73.9 Peripheral vascular disease, unspecified; I65.29 Occlusion and stenosis of unspecified carotid artery; I71.4 Abdominal aortic aneurysm, without rupture; R61 Generalized hyperhidrosis; F41.9 Anxiety disorder, unspecified; E78.5 Hyperlipidemia, unspecified; K21.9 Gastro-esophageal reflux disease without esophagitis; G89.29 Other chronic pain; M54.2 Cervicalgia; M54.9 Dorsalgia, unspecified; M19.90 Unspecified osteoarthritis, unspecified site; F17.200 Nicotine dependence, unspecified, uncomplicated; Z71.6 Tobacco abuse counseling; Z90.710 Acquired absence of both cervix and uterus; Z90.79 Acquired absence of other genital organ(s); Z79.82 Long term (current) use of aspirin; Z79.899 Other long term (current) drug therapy; Z82.49 Family history of ischemic heart disease and other diseases of the circulatory system; Z83.3 Family history of diabetes mellitus; Z86.79 Personal history of other diseases of the circulatory system; Z79.891 Long term (current) use of opiate analgesic; Z88.1 Allergy status to other antibiotic agents; Z88.0 Allergy status to penicillin; Z88.8 Allergy status to other drugs, medicaments and biological substances
CPT/HCPCS: 36415; 71020; 71275; 75635; 78452; 80048; 80053; 80061; 82550; 82553; 83735; 83880; 84443; 84484; 85025; 85379; 85610; 85730; 93005; 93017; 93306; 94640; 96365; 96366; 96367; 96375; 99285

== ENCOUNTER → 2017-06-14 | Outpatient (CLI) | payer MEDICARE, OTHER ==
--- NOTE | 2017-06-15 16:06 | MR ---
EXAMINATION TYPE: MR brain wo/w con DATE OF EXAM: 06/14/2017 COMPARISON: NONE HISTORY: Headache TECHNIQUE: Multiplanar, multisequence images of the brain and brainstem is performed without and with IV contras t, utilizing 6.5 mL intravenous Gadavist . FINDINGS: Diffusion weighted images demonstrate no evidence of a recent infarct or other diffusion ab normality. Nonenhancing T1 hypointense and T2/FLAIR hyperintense focus of gliosis is seen within the left cerebellar peduncle. Additional T2 hyperintense and T1 hypointense and nonenhancing is seen wit hin the left paracentral tash. Scattered foci of nonspecific white matter change are seen within the periventricular and subcortical white matter. The largest on the left measures 5 mm on axial flair fa t-sat image 20 and the largest on the right measures 3 mm on image 22. There is no extra-axial fluid collection or significant white matter signal abnormality. The ventricular system and cisternal spac es are normal in size and appearance. The brain volume is age appropriate. Midline structures demonstrate normal morphology. The craniocervical junction appears within normal limits. Post contrast images demonstrate no abnormal enhancement. The dural venous sinuses appear pa tent. The globes are intact. There is a small amount of mucosal thickening within the left maxillary sinus and scant mucosal thickening within the ethmoid sinuses. Remaining paranasal sinuses are well a erated. Scant fluid is seen within the bilateral mastoid air cells. 1 mm nonenhancing pineal gland cy st is incidentally seen. IMPRESSION: 1. No evidence of acute or subacute infarct, midline shift, mass effect or abnormal intracranial enha ncement. 2. Nonspecific white matter change that is overall mild burden, however 2 infratentorial foci are see n within the tash and left cerebellar peduncle. Therefore this raises suspicion for demyelinating dis ease although these could also represent lacunar injuries and supratentorial white matter change coul d represent microangiopathy or sequela of vasculitis. 3. Mild paranasal sinus disease and scant fluid within the mastoid air cells.
== END ==
LOC: RADMRIMAIN 12:31
PROVIDERS: ATTEND Family Medicine
DX: R90.89 Other abnormal findings on diagnostic imaging of central nervous system (principal)
CPT/HCPCS: 82565; 84520; 70553; 36415; A9581

== ENCOUNTER → 2017-06-15 | Outpatient (CLI) | payer MEDICARE, OTHER ==
--- NOTE | 2017-06-15 18:03 | MR ---
EXAMINATION TYPE: MR pituitary wo/w con DATE OF EXAM: 06/15/2017 COMPARISON: NONE HISTORY: Headache TECHNIQUE: Multiplanar, multisequence images of the brain and brainstem is performed without and with IV contras t, utilizing 6.5 mL intravenous Gadavist . FINDINGS: Pituitary stalk is in the midline. There is normal enhancement of the pituitary pituitary s talk. No suspicious microadenomas are identified. No macroadenoma is evident. Carotid siphon at this level has normal flow voids. The internal carotid arteries bifurcate into A1 a nd M1 segments normally. IMPRESSION: Normal MRI pituitary
== END | disposition home or self-care (01) ==
LOC: RADMRIMAIN 13:02
PROVIDERS: ATTEND Family Medicine
DX: R51 Headache (principal)
CPT/HCPCS: 70553; A9581

== ENCOUNTER 2017-09-21 03:00 | Inpatient (IN) | payer MEDICARE, OTHER ==
[2017-09-21] MEDS ORDERED: SODIUM CHLORIDE 0.9% 500 ML IV STA (03:20)
[2017-09-21] MEDS ORDERED: IPRATROPIUM-ALBUTEROL 3 ML NEB INHALATION STA (03:20)
[2017-09-21] MEDS ORDERED: diphenhydrAMINE 50 MG/ML 1 ML VIAL IVP STA (03:21)
[2017-09-21] MEDS ORDERED: FAMOTIDINE 20 MG/2 ML VIAL IV STA (03:21)
--- NOTE | 2017-09-21 03:26 | ED ---
General Adult HPI - General Source: patient Mode of arrival: ambulatory Limitations: no limitations <Rula Coleman - Last Filed: 09/21/17 04:42> <Janay Ga - Last Filed: 09/21/17 06:18> - General Chief complaint: Upper Respiratory Infection Stated complaint: Cold, no appetite Time Seen by Provider: 09/21/17 03:09 - History of Present Illness Initial comments: 57-year-old female patient presents to the emergency department today for complaints of cough, nasal congestion, and dizziness. Patient states that she has been sick for the last 2 weeks with upper respiratory symptoms. States that she did see her primary care physician about a week ago was started on Bactrim. Patient states that tonight she started to feel worse, cannot stop coughing, and started to feel dry and dehydrated. Is reporting shortness of breath and chest tightness. Upon arrival patient did notice that she had a rash to her bilateral arms and legs. She denies any itching to this rash. Patient states she is attempting to quit smoking but has been a cigarette smoker for many years. States that she did have a temperature of 100.0F at home today. Patient denies any recent rash, abdominal pain, nausea, vomiting, diarrhea, constipation, back pain, numbness, tingling, dizziness, weakness, hematuria, dysuria, urinary urgency, urinary frequency, headache, visual changes, or any other complaints. (Rula Coleman) - Related Data Home Medications Medication Instructions Recorded Confirmed ALPRAZolam [Xanax] 0.5 mg PO BID PRN 03/07/15 02/12/17 Fenofibrate 160 mg PO DAILY 03/07/15 02/12/17 Magnesium Oxide [Mag-Ox] 400 mg PO DAILY 03/07/15 02/12/17 oxyCODONE-APAP 10-325MG [Percocet 1 tab PO Q6H PRN 03/07/15 02/12/17 10-325 mg] Ergocalciferol [Vitamin D2 50,000 unit PO Q14D 07/24/16 02/12/17 (DRISDOL)] FLUoxetine HCL [PROzac] 40 mg PO DAILY 07/24/16 02/12/17 Omeprazole [PriLOSEC] 20 mg PO DAILY 07/24/16 02/12/17 Aspirin EC [Ecotrin Low Dose] 81 mg PO DAILY 02/12/17 02/12/17 Atorvastatin [Lipitor] 40 mg PO HS 02/12/17 02/12/17 Estrogens, Conjugated Cream 0.5 applicator VAGINAL HS 02/12/17 02/12/17 [Premarin Cream] Losartan [Cozaar] 25 mg PO DAILY 02/12/17 02/12/17 Previous Rx's Medication Instructions Recorded Isosorbide Mononitrate ER [Imdur] 30 mg PO DAILY #30 tab 07/26/16 Nitroglycerin Sl Tabs [Nitrostat] 0.4 mg SUBLINGUAL Q5M PRN #30 tab 07/26/16 Allergies Allergy/AdvReac Type Severity Reaction Status Date / Time amoxicillin Allergy Itching Verified 09/21/17 03:06 diazepam [From Valium] Allergy Hallucinati Verified 09/21/17 03:06 ons erythromycin base Allergy Nausea & Verified 09/21/17 03:06 Vomiting ANDREEA Inhibitors AdvReac Cough Verified 09/21/17 03:06 STEROIDS AdvReac EYE Uncoded 09/21/17 03:06 PROBLEMS Review of Systems ROS Other: All systems not noted in ROS Statement are negative. <Rula Coleman M - Last Filed: 09/21/17 04:42> ROS Other: All systems not noted in ROS Statement are negative. <Janay Ga - Last Filed: 09/21/17 06:18> ROS Statement: Those systems with pertinent positive or pertinent negative responses have been documented in the HPI. Past Medical History Past Medical History: GERD/Reflux, Hyperlipidemia, Hypertension, Syncope Additional Past Medical History / Comment(s): periods of syncopy History of Any Multi-Drug Resistant Organisms: None Reported Past Surgical History: Back Surgery, Hysterectomy, Orthopedic Surgery Additional Past Surgical History / Comment(s): carotid artery surgery. neck and back sx, rt thumb sx for trigger thumb, fem pop bypass rt side, partial hysterectomy, left tube and uterus removed Past Anesthesia/Blood Transfusion Reactions: No Reported Reaction Past Psychological History: Anxiety Smoking Status: Current every day smoker Past Alcohol Use History: None Reported Past Drug Use History: None Reported - Past Family History Mother Family Medical History: Hyperlipidemia, Hypertension Sister(s) Family Medical History: Diabetes Mellitus Father Family Medical History: Hyperlipidemia Additional Family Medical History / Comment(s): On heart meds. Blocked arteries <Rula Coleman Raissa - Last Filed: 09/21/17 04:42> General Exam Limitations: no limitations General appearance: alert, in no apparent distress, other (This is a well- developed, well-nourished adult female patient in no acute distress. Vital signs upon presentation are temperature 97.9F, pulse 97, respirations 22, blood pressure 109/69, pulse ox 98% on room air.) Eye exam: Present: normal appearance, PERRL, EOMI. Absent: scleral icterus, conjunctival injection, periorbital swelling ENT exam: Present: normal exam, normal oropharynx, mucous membranes moist Respiratory exam: Present: wheezes (Bilateral expiratory wheezing to all posterior lung barnes). Absent: normal lung sounds bilaterally, respiratory distress, rales, rhonchi, stridor Cardiovascular Exam: Present: regular rate, normal rhythm, normal heart sounds. Absent: systolic murmur, diastolic murmur, rubs, gallop, clicks GI/Abdominal exam: Present: soft, normal bowel sounds. Absent: distended, tenderness, guarding, rebound, rigid Neurological exam: Present: alert, oriented X3, CN II-XII intact Psychiatric exam: Present: normal affect, normal mood Skin exam: Present: warm, dry, intact, normal color, rash (There is a flat erythematous rash noted to the bilateral arms and legs. No swelling. Lesions are non-petechial, nonvesicular. Consistent with drug rash.) <Rula Coleman M - Last Filed: 09/21/17 04:42> Vital Signs 09/21/17 09/21/17 09/21/17 03:02 03:16 03:42 Temperature 97.9 F Pulse Rate 97 97 Respiratory 22 18 Rate Blood Pressure 109/69 O2 Sat by Pulse 98 Oximetry 09/21/17 09/21/17 03:46 04:46 Temperature 98.4 F Pulse Rate 99 100 Respiratory 18 Rate Blood Pressure 106/56 O2 Sat by Pulse 97 Oximetry Medical Decision Making - Lab Data Result diagrams: 09/21/17 03:34 09/21/17 03:34 - Radiology Data Radiology results: report reviewed, image reviewed <Rula Coleman - Last Filed: 09/21/17 04:42> - Lab Data Result diagrams: 09/21/17 03:34 09/21/17 03:34 <Janay Ga - Last Filed: 09/21/17 06:18> - Medical Decision Making 57-year-old female patient presented to the emergency department today for evaluation for cough, shortness of breath, and nasal congestion. Physical examination did reveal diffuse expiratory wheezing throughout all posterior lung barnes. Labs reviewed and showed a white blood cell count of 3.3, hemoglobin 11.2, sodium 129, blood urea nitrogen of 21, creatinine 2.4. Patient was given 500 mL of normal saline, chest x-ray and symptoms are concerning for pneumonia. We'll admit to the hospital with IV antibiotics and IV fluids. (Rula Coleman) I personally saw and examined the patient. I reviewed and agree with the mid- level provider findings including all diagnostic interpretations and treatment plans as written unless otherwise stated. Admission orders were placed to Dr. George for pneumonia, acute kidney injury, hyponatremia and leukopenia. (Janay Ga) - Lab Data Lab Results 09/21/17 09/21/17 Range/Units 03:34 03:34 WBC 3.3 L (3.8-10.6) k/uL RBC 4.02 (3.80-5.40) m/uL Hgb 11.2 L (11.4-16.0) gm/dL Hct 33.6 L (34.0-46.0) % MCV 83.7 (80.0-100.0) fL MCH 27.8 (25.0-35.0) pg MCHC 33.2 (31.0-37.0) g/dL RDW 15.9 H (11.5-15.5) % Plt Count 200 (150-450) k/uL Neutrophils % 74 % Lymphocytes % 13 % Monocytes % 1 % Eosinophils % 10 % Basophils % 0 % Neutrophils # 2.4 (1.3-7.7) k/uL Lymphocytes # 0.4 L (1.0-4.8) k/uL Monocytes # 0.0 (0-1.0) k/uL Eosinophils # 0.3 (0-0.7) k/uL Basophils # 0.0 (0-0.2) k/uL Sodium 129 L (137-145) mmol/L Potassium 4.2 (3.5-5.1) mmol/L Chloride 100 (98-107) mmol/L Carbon Dioxide 18 L (22-30) mmol/L Anion Gap 11 mmol/L BUN 21 H (7-17) mg/dL Creatinine 2.40 H (0.52-1.04) mg/dL Est GFR (CKD-EPI)AfAm 25 (>60 ml/min/1.73 sqM) Est GFR (CKD-EPI)NonAf 22 (>60 ml/min/1.73 sqM) Glucose 93 (74-99) mg/dL Calcium 8.5 (8.4-10.2) mg/dL Disposition Decision to Admit Reason: Admit from EC Decision Date: 09/21/17 Decision Time: 04:30 <Rula Coleman - Last Filed: 09/21/17 04:42> <Janay Ga - Last Filed: 09/21/17 06:18> Clinical Impression: Pneumonia, Acute kidney injury, Hyponatremia Disposition: ADMITTED IP TO THIS [facility] Condition: Serious
[2017-09-21 03:44] LABS: Basophils % (A) 0 %; Eosinophils # (A) 0.3 k/uL (0-0.7); Eosinophils % (A) 10 %; HCT 33.6 % (34.0-46.0); HGB 11.2 gm/dL (11.4-16.0); Lymphocytes # (A) 0.4 k/uL (1.0-4.8); Lymphocytes % (A) 13 %; MCH 27.8 pg (25.0-35.0); MCHC 33.2 g/dL (31.0-37.0); MCV 83.7 fL (80.0-100.0); Mean Platelet Volume 6.7; Monocytes % (A) 1 %; Neutrophils # (A) 2.4 k/uL (1.3-7.7); Neutrophils % (A) 74 %; Platelet Count 200 k/uL (150-450); RBC 4.02 m/uL (3.80-5.40); RDW 15.9 % (11.5-15.5); WBC 3.3 k/uL (3.8-10.6)
[2017-09-21 03:53] LABS: Calcium 8.5 mg/dL (8.4-10.2); Potassium 4.2 mmol/L (3.5-5.1)
[2017-09-21] MEDS ORDERED: PNEUMONIA PROTOCOL UTILIZED 1 EACH MISC PO PRN (04:26)
[2017-09-21] MEDS ORDERED: IPRATROPIUM-ALBUTEROL 3 ML NEB INHALATION PRN ×2 (04:26→20:31)
[2017-09-21] MEDS ORDERED: LEVOFLOXACIN 750MG-D5W PMX 750 MG in DEXTROSE/WATER 1 150ML.BAG IVPB STA (04:26)
[2017-09-21] MEDS ORDERED: SODIUM CHLORIDE 0.9% 1,000 ML IV SCH (04:30)
--- NOTE | 2017-09-21 05:10 | XR ---
EXAM: XR Chest, 2 Views CLINICAL HISTORY: Cough TECHNIQUE: Frontal and lateral views of the chest. COMPARISON: 07/24/16 FINDINGS: Lungs: Unremarkable. No consolidation. Pleural space: Unremarkable. No pneumothorax. Heart: Unremarkable. No cardiomegaly. Mediastinum: Unremarkable. Bones/joints: Unremarkable. IMPRESSION: Normal chest x-rays. No change from prior study
[2017-09-21] MEDS: IPRATROPIUM-ALBUTEROL 3 ML NEB INHALATION SCH ×5 (07:10→20:04)
[2017-09-21] MEDS ORDERED: NITROGLYCERIN SL TABS 0.4 MG TAB SUBLINGUAL PRN (10:31)
[2017-09-21] MEDS ORDERED: LOSARTAN 25 MG TAB PO SCH (11:00)
[2017-09-21] MEDS: FENOFIBRATE 160 MG TAB PO SCH (11:04)
[2017-09-21] MEDS: DULoxetine HCL 60 MG CAPSULE.DR PO SCH (11:04)
[2017-09-21] MEDS: ISOSORBIDE MONONITRATE ER 30 MG TAB.ER.24H PO SCH (11:04)
[2017-09-21] MEDS: MAGNESIUM OXIDE 400 MG TAB PO SCH (11:04)
[2017-09-21] MEDS: PANTOPRAZOLE 40 MG TABLET PO SCH (11:04)
[2017-09-21] MEDS: ASPIRIN 81 MG PO SCH (11:04)
[2017-09-21] MEDS: oxyCODONE-APAP 10-325MG 1 EACH TAB PO PRN ×2 (12:54→22:58)
[2017-09-21] MEDS ORDERED: LORazepam 0.5 MG TAB PO PRN (16:19)
[2017-09-21] MEDS ORDERED: LACTULOSE 20 GM/30 ML CUP PO PRN (16:19)
[2017-09-21] MEDS ORDERED: ONDANSETRON 4 MG/2 ML VIAL IVP PRN (16:19)
[2017-09-21] MEDS ORDERED: MAGNESIUM HYDROXIDE 2,400 MG/10 ML CUP PO PRN (16:19)
[2017-09-21] MEDS ORDERED: ACETAMINOPHEN TAB 325 MG TAB PO PRN (16:19)
[2017-09-21] MEDS ORDERED: CALCIUM CARBONATE 500 MG CHEWABLE PO PRN (16:19)
--- NOTE | 2017-09-21 16:58 | HP ---
HISTORY AND PHYSICAL DATE OF ADMISSION: 09/21/17. DATE OF SERVICE: 09/21/17. PRESENTING COMPLAINT: Short of breath, cough. HISTORY OF PRESENTING COMPLAINT: A very pleasant 57-year-old patient of Dr. Pope. Chronic stable medical conditions include GERD, hyperlipidemia, hypertension, peripheral artery disease, chronic kidney disease and abdominal aortic aneurysm. The patient has continued to smoke. Has a known history of COPD. For 2 weeks has been getting increasing cough, green sputum, congested, was given antibiotic probably in the form of Bactrim and developed a rash that she noticed yesterday in the ER. Fever is present. Decreased appetite, tired, run down. The patient has chronic kidney disease and actually patient's BUN and creatinine went up to 21/2.40. The patient presented to the ER. Sodium also had dropped down. Appetite was not good. Tired and run down. is present at the bedside. REVIEW OF SYSTEMS: CONSTITUTIONAL: Tired, decreased appetite, febrile. HEENT: Ringing in the ears. RESPIRATORY: Above. CARDIOVASCULAR: None. GASTROINTESTINAL: None. GENITOURINARY: None. MUSCULOSKELETAL: None. DERMATOLOGICAL, HEMATOLOGIC, LYMPHATIC: None. PSYCHIATRY: Anxious. NEUROLOGICAL: None. PAST MEDICAL HISTORY: Angina, COPD, anxiety, hyperlipidemia, hypertension, peripheral artery disease, chronic kidney disease, abdominal aortic aneurysm 3.5 cm. PAST SURGICAL HISTORY: Back surgery, cholecystectomy, hysterectomy, carotid artery surgery, neck and back surgery, right thumb surgery for trigger thumb, fem-pop bypass on the right side, partial hysterectomy, left tube and uterus removed. SOCIAL HISTORY: Patient is smoking a pack a day close to 30 years. Lives with her . No alcohol. FAMILY HISTORY: Hyperlipidemia, hypertension. HOME MEDICATIONS: 1. Cymbalta 60 mg a day. 2. Percocet 10 1 tab q.6h p.r.n. 3. Prilosec 20 mg a day. 4. Nitrostat 0.4 sublingual q.5 p.r.n. 5. Magnesium oxide 400 mg a day. 6. Cozaar 25 mg a day. 7. Imdur ER 30 mg a day. 8. Tricor 160 mg a day. 9. Estrogen 0.5 application vaginal at bedtime. 10.Vitamin D2 17317 units p.o. every 14 days. 11.Lipitor 40 mg q.h.s. 12.Aspirin 81 mg p.o. daily. ALLERGIES: To AMOXICILLIN, VALIUM, ERYTHROMYCIN, BACTRIM, ANDREEA INHIBITOR, STEROIDS. PHYSICAL EXAMINATION: Vital signs on presentation: Temperature 100.3, pulse 112, respirations 16, blood pressure 109/58, pulse 97% on room air. GENERAL APPEARANCE: Thin built, sitting up, tired appearing. EYES: Pupils equal. Conjunctivae normal. HEENT: External appearance of nose and ears normal. Oral cavity normal. NECK: JVD not raised. Mass not palpable. Respiratory effort increased. LUNGS: Diminished breath sounds, prolonged expiration wheezing. CARDIOVASCULAR: First and second sounds normal. No edema. ABDOMEN: Soft, nontender. Thin. Liver and spleen not palpable. LYMPHATIC: No lymph node palpable in neck or axillae. PSYCHIATRY: Alert and oriented x3. Mood and affect normal. NEUROLOGICAL: Pupils equal. Cranial nerves grossly intact. Power and sensation grossly intact. INVESTIGATIONS: White count 3.3, hemoglobin 11.2, sodium 129, potassium 4.2, BUN 21, creatinine 2.0, bicarb 18. Chest x-ray film interpreted by tx shows no obvious infiltrate. ASSESSMENT: 1. Acute severe chronic obstructive pulmonary disease exacerbation probably from acute tracheobronchitis, having failed outpatient treatment. 2. Chronic stable angina. 3. Anxiety, not otherwise specified. 4. Essential hypertension. 5. Hyperlipidemia. 6. Peripheral artery disease with prior intervention. 7. Acute renal failure could be seizure nephritis from medications including Bactrim. 8. Abdominal aortic aneurysm 3.5 cm. 9. Chronic nicotine dependence, patient active cigarette smoker. 10.Chronic kidney disease stage III probably from nephrosclerosis. Creatinine was 1.34 back in May of this year. PLAN: The patient is started on IV antibiotics, nebulized bronchodilators and steroids. Home medications are resumed. Bactrim of course has been discontinued. IV fluids will be given. Keep a close eye on patient's renal function. Care was discussed with the patient and in detail. Smoking cessation counseling was carried out. The patient was given a nicotine patch and nicotine gum p.r.n. More than 3 minutes was spent on this aspect of the case. MMODL / NAYELIN: [id number] /
[2017-09-21] MEDS: LACTATED RINGERS 1,000 ML IV SCH (17:11)
[2017-09-21] MEDS: NICOTINE 21MG/24HR PATCH TRANSDERM SCH (17:11)
[2017-09-21] MEDS ORDERED: ATORVASTATIN 40 MG TAB PO SCH (21:00)
[2017-09-21] MEDS ORDERED: ESTROGENS, CONJUGATED 0.625 MG/GM VAGINAL CREAM 42.5 GM TUBE VAGINAL SCH (21:00)
[2017-09-21] MEDS ORDERED: MELATONIN 3 MG TABLET PO PRN (21:00)
[2017-09-22] MEDS: LACTATED RINGERS 1,000 ML IV SCH ×3 (00:45→16:09)
[2017-09-22] MEDS ORDERED: LEVOFLOXACIN 750MG-D5W PMX 750 MG in DEXTROSE/WATER 1 150ML.BAG IVPB SCH (05:00)
[2017-09-22] MEDS: IPRATROPIUM-ALBUTEROL 3 ML NEB INHALATION SCH ×4 (07:55→19:37)
[2017-09-22] MEDS: ASPIRIN 81 MG PO SCH (08:35)
[2017-09-22] MEDS: ISOSORBIDE MONONITRATE ER 30 MG TAB.ER.24H PO SCH (08:35)
[2017-09-22] MEDS: DULoxetine HCL 60 MG CAPSULE.DR PO SCH ×2 (08:35→08:38)
[2017-09-22] MEDS: PANTOPRAZOLE 40 MG TABLET PO SCH (08:35)
[2017-09-22] MEDS: MAGNESIUM OXIDE 400 MG TAB PO SCH (08:35)
[2017-09-22] MEDS: FENOFIBRATE 160 MG TAB PO SCH (08:35)
[2017-09-22] MEDS: NICOTINE 21MG/24HR PATCH TRANSDERM SCH (08:37)
[2017-09-22 08:57] LABS: Calcium 8.4 mg/dL (8.4-10.2); Potassium 4.1 mmol/L (3.5-5.1)
[2017-09-22] MEDS: methylPREDNISolone SOD SUCCI 40 MG/ML 1 ML VIAL IV SCH ×2 (14:19→15:59)
[2017-09-22 14:26] VITALS: BP 104/73; RESP 18; TEMP 96.6
[2017-09-22 15:52] VITALS: PULSE 100
[2017-09-22] MEDS: oxyCODONE-APAP 10-325MG 1 EACH TAB PO PRN (16:01)
--- NOTE | 2017-09-22 18:38 | PN ---
PROGRESS NOTE DATE OF SERVICE: 09/22/17 PRESENT COMPLAINT: Short of breath. INTERVAL HISTORY: Patient admitted with COPD exacerbation. Doing somewhat better with bronchodilators. Did eat a little bit. Sodium has been running low. REVIEW OF SYSTEMS: Done for constitutional, cardiovascular, GI, pulmonary; relevant findings as above. CURRENT MEDICATIONS: Reviewed that include DuoNeb, INR, Solu-Medrol was ordered, Levaquin. PHYSICAL EXAMINATION: Temperature 98.8, pulse 96, respirations 18, blood pressure 95/50, pulse ox 99% on room air. GENERAL APPEARANCE: Sitting up less tired. EYES: Pupils equal. Conjunctivae normal.. HEENT: External appearance of nose and ears normal. Oral cavity normal. NECK: JVD not raised. Mass not palpable. RESPIRATORY: Effort increased. Lungs, decreased breath sounds. Prolonged expiration. CARDIOVASCULAR: First and second sounds, no edema. ABDOMEN: Soft, nontender. Liver and spleen not palpable. PSYCHIATRY: Alert and oriented x3. Mood and affect normal. INVESTIGATIONS: Sodium 129, potassium 4.1, creatinine 1.56. ASSESSMENT: 1. Acute severe chronic obstructive pulmonary disease exacerbation from acute tracheobronchitis, having failed outpatient treatment. 2. Chronic stable angina. 3. Anxiety, not otherwise specified. 4. Essential hypertension. 5. Hyperlipidemia. 6. Peripheral artery disease with prior intervention. 7. Acute renal failure could be interstitial nephritis from medications including Bactrim. Creatinine started to come down. 8. Abdominal aortic aneurysm 3.5 cm. 9. Chronic nicotine dependence, patient active cigarette smoker. 10.Chronic kidney disease stage III with a baseline creatinine around 1.3 from May of this year. 11.Hyponatremia probably hypoosmolar from decreased salt intake and excessive fluid intake. PLAN: Will talk to the patient about taking steroids. Renal function is actually improving. Reinforced the patient to increase his salt intake and back on fluid intake. MMODL / IJN: [id number] /
[2017-09-22] MEDS ORDERED: DULoxetine HCL 60 MG CAPSULE.DR PO SCH (21:00)
[2017-09-23] MEDS ORDERED: ERGOCALCIFEROL 50,000 UNIT CAP PO SCH (09:00)
[2017-09-24] MEDS ORDERED: LEVOFLOXACIN 750 MG TAB PO SCH (06:00)
== END 2017-09-22 19:46 | disposition left against medical advice (07) | DRG 191 ==
LOC: EC 03:00 → 4MS4W 04:56
PROVIDERS: ADMIT Hospitalist; ATTEND Hospitalist
DX: J44.1 Chronic obstructive pulmonary disease with (acute) exacerbation (principal); E87.1 Hypo-osmolality and hyponatremia; N17.9 Acute kidney failure, unspecified; J44.0 Chronic obstructive pulmonary disease with (acute) lower respiratory infection; D72.819 Decreased white blood cell count, unspecified; E78.5 Hyperlipidemia, unspecified; F17.210 Nicotine dependence, cigarettes, uncomplicated; F41.9 Anxiety disorder, unspecified; I12.9 Hypertensive chronic kidney disease with stage 1 through stage 4 chronic kidney disease, or unspecified chronic kidney disease; I20.8 Other forms of angina pectoris; I71.4 Abdominal aortic aneurysm, without rupture; I73.9 Peripheral vascular disease, unspecified; J20.9 Acute bronchitis, unspecified; K21.9 Gastro-esophageal reflux disease without esophagitis; N18.3 Chronic kidney disease, stage 3 (moderate); R21 Rash and other nonspecific skin eruption; T37.0X5A Adverse effect of sulfonamides, initial encounter; Z90.710 Acquired absence of both cervix and uterus; Z90.79 Acquired absence of other genital organ(s); Z90.721 Acquired absence of ovaries, unilateral; Z79.82 Long term (current) use of aspirin; Z79.899 Other long term (current) drug therapy; Z90.49 Acquired absence of other specified parts of digestive tract; Z88.0 Allergy status to penicillin; Z88.8 Allergy status to other drugs, medicaments and biological substances; Z82.49 Family history of ischemic heart disease and other diseases of the circulatory system; Z83.3 Family history of diabetes mellitus; Y92.009 Unspecified place in unspecified non-institutional (private) residence as the place of occurrence of the external cause
CPT/HCPCS: 36415; 71046; 80048; 85025; 87040; 87070; 87205; 94640; 96365; 96375; 99284

== ENCOUNTER → 2017-12-12 | Outpatient (CLI) | payer MEDICARE, OTHER ==
--- NOTE | 2017-12-12 11:24 | US ---
EXAMINATION TYPE: US kidneys/renal and bladder DATE OF EXAM: 12/12/2017 COMPARISON: CT CLINICAL HISTORY: N18.3 CKD Stage 3. CKD EXAM MEASUREMENTS: Right Kidney: 10.9 x 3.9 x 5.2 cm Left Kidney: 8.4 x 3.3 x 4.0 cm Right Kidney: Appeared wnl Left Kidney: Small in size when compared to right kidney/ Small cyst lower pole 0.6 cm Bladder: wnl Bilateral Jets seen: Yes Pt has known AAA, AP measurement= 4.1 cm on ultrasound There is no evidence for hydronephrosis at this point in time. No nephrolithiasis is seen. No abhijit s are identified. The urinary bladder is anechoic. Bilateral ureteral jets are seen. IMPRESSION: 1. Slight asymmetry in size with atrophy of the left kidney in comparison to the right. 2. Abdominal aortic aneurysm measuring up to 4.1 cm. 3. No evidence of hydronephrosis or nephrolithiasis.
== END | disposition home or self-care (01) ==
LOC: RADUSWWP 09:45
PROVIDERS: ATTEND Internal Medicine Nephrology
DX: N26.1 Atrophy of kidney (terminal) (principal); I71.4 Abdominal aortic aneurysm, without rupture; N18.3 Chronic kidney disease, stage 3 (moderate)
CPT/HCPCS: 76770

== ENCOUNTER → 2017-12-16 | Outpatient (CLI) | payer MEDICARE, OTHER ==
--- NOTE | 2017-12-18 08:49 | MR ---
EXAMINATION TYPE: MR lumbar spine wo con DATE OF EXAM: 12/16/2017 12:20 PM COMPARISON: NONE HISTORY: disc degeneration Multiplanar, MultiSpin echo imaging of the lumbar spine was performed. L1-L2: Normal disc appearance without desiccation. No herniation, protrusion or disc bulging. No ca nal stenosis is present. Foramina are patent bilaterally. L2-L3: Normal disc appearance without desiccation. No herniation, protrusion or disc bulging. No ca nal stenosis is present. Foramina are patent bilaterally. L3-L4: Normal disc appearance without desiccation. No herniation, protrusion or disc bulging. No ca nal stenosis is present. Foramina are patent bilaterally. L4-L5: Mild disc desiccation noted. Right paracentral disc bulge results in right foraminal encroachm ent. There is no evidence for central stenosis or disc herniation. L5-S1: Grade 2 anterolisthesis measuring 1 cm of L5 on S1. Severe disc desiccation with vacuum disc n oted. Mild posterior disc bulge without herniation or protrusion. Deformity of the thecal sac without evidence for central stenosis. Bilateral foraminal encroachment identified. No definite evidence for spondylolysis. Severe degenerative change facet joints. Lumbar segments are intact. Ventral spondylosis is seen throughout. No paraspinal masses are identif ied. Conus medullaris has a normal appearance. IMPRESSION: 1. Generative disc disease as discussed. 2. Grade 2 anterolisthesis L5 on S1. See above.
== END | disposition home or self-care (01) ==
LOC: RADMRIMAIN 11:43
PROVIDERS: ATTEND Family Medicine
DX: M43.17 Spondylolisthesis, lumbosacral region (principal); M51.26 Other intervertebral disc displacement, lumbar region; M47.816 Spondylosis without myelopathy or radiculopathy, lumbar region
CPT/HCPCS: 72148

== ENCOUNTER → 2018-05-08 | Outpatient (CLI) | payer MEDICARE, OTHER ==
--- NOTE | 2018-05-08 11:25 | US ---
EXAMINATION TYPE: US kidneys/renal and bladder DATE OF EXAM: 05/08/2018 COMPARISON: US & CT CLINICAL HISTORY: N18.3 chronic kidney disease Stage 3. EXAM MEASUREMENTS: Right Kidney: 11.0 x 3.6 x 3.9 cm Left Kidney: 8.3 x 3.5 x 4.3 cm Right Kidney: No hydronephrosis or masses seen Left Kidney: tiny lower pole cyst measures 0.6 x 0.7 x 0.9 cm Bladder: wnl Bilateral Jets seen: only right jet seen in 3 minutes of scan time There is no evidence for hydronephrosis at this point in time. No nephrolithiasis is seen. No abhijit s are identified. The urinary bladder is anechoic. IMPRESSION: 1. Again there is asymmetry in size of the kidneys with atrophy on the left. 2. Left lower pole 9 mm cyst appears benign. 3. The known abdominal aortic aneurysm is not visualized on the provided images.
== END ==
LOC: RADUSWWP 10:47
PROVIDERS: ATTEND Internal Medicine Nephrology
DX: N26.1 Atrophy of kidney (terminal) (principal); N28.1 Cyst of kidney, acquired
CPT/HCPCS: 76770

== ENCOUNTER → 2018-06-13 | Outpatient (CLI) | payer MEDICARE, OTHER ==
[2018-06-13 12:16] LABS: Basophils # (A) 0.1 k/uL (0-0.2); Basophils % (A) 1 %; Eosinophils # (A) 0.2 k/uL (0-0.7); Eosinophils % (A) 4 %; HCT 38.1 % (34.0-46.0); HGB 12.3 gm/dL (11.4-16.0); Lymphocytes # (A) 1.9 k/uL (1.0-4.8); Lymphocytes % (A) 33 %; MCH 27.5 pg (25.0-35.0); MCHC 32.4 g/dL (31.0-37.0); Mean Platelet Volume 7.5; Monocytes # (A) 0.5 k/uL (0-1.0); Monocytes % (A) 8 %; Neutrophils % (A) 51 %; Platelet Count 294 k/uL (150-450); RBC 4.48 m/uL (3.80-5.40); RDW 15.9 % (11.5-15.5); WBC 5.8 k/uL (3.8-10.6)
[2018-06-13 12:17] LABS: Appearance,Urine Clear (Clear); Bilirubin,Urine Negative (Negative); Blood,Urine Negative (Negative); Color,Urine Yellow; Glucose,Urine (UA) Negative (Negative); Ketones,Urine Negative (Negative); Leukocyte Esterase,Urine Negative (Negative); Nitrite,Urine Negative (Negative); PH, Urine 6.5 (5.0-8.0); Protein,Urine Negative (Negative); Specific Gravity,Urine 1.015 (1.001-1.035); Urobilinogen,Urine <2.0 mg/dL (<2.0)
[2018-06-13 12:21] LABS: Partial Thromboplastin Time 25.1 sec (22.0-30.0); Prothrombin Time 10.6 sec (9.0-12.0)
[2018-06-13 12:44] LABS: Calcium 10.1 mg/dL (8.4-10.2); Potassium 4.4 mmol/L (3.5-5.1)
--- NOTE | 2018-06-13 12:58 | XR ---
EXAMINATION TYPE: XR chest 2V DATE OF EXAM: 06/13/2018 COMPARISON: Prior chest x-ray 09/21/2017 HISTORY: Presurgical testing TECHNIQUE: Frontal and lateral views of the chest are obtained. FINDINGS: There is no focal air space opacity, pleural effusion, or pneumothorax seen. The cardiac silhouette size is within normal limits. There is a mild spinal curvature. The aorta is dense. Surgi khadijah clips present in the upper abdomen. There is eventration of right hemidiaphragm. The osseous stru ctures are intact. Prominent lung volume may be indicative of underlying COPD. IMPRESSION: No acute cardiopulmonary process.
== END | disposition home or self-care (01) ==
LOC: LABPAT 11:00
PROVIDERS: ATTEND Orthopaedic Surgery Orthopaedic Surgery of the Spine
DX: Z01.818 Encounter for other preprocedural examination (principal); Z01.812 Encounter for preprocedural laboratory examination; M43.17 Spondylolisthesis, lumbosacral region; Z79.01 Long term (current) use of anticoagulants
CPT/HCPCS: 36415; 71046; 80048; 81003; 85025; 85610; 85730; 87070; 93005

== ENCOUNTER 2018-07-04 10:45 | Inpatient (IN) | payer MEDICARE, OTHER ==
[~2018-07-04 10:45] MED LIST: BACITRACIN 50,000 UNIT in SODIUM CHLORIDE 0.9% IRRIGATIO 1,000 ML IRRIGATION ONE; DEXAMETHASONE SOD PHOSPHATE 10 MG/ML 1 ML VIAL IV ONE; LIDOCAINE 1% 20 ML VIAL (10MG/ML) FOR IV START INTRADERMA PRN; MIDAZOLAM 2 MG/2 ML VIAL IV PRN; ONDANSETRON 4 MG/2 ML VIAL IVP ONE; SCOPOLAMINE 1.5MG/72HR PATCH TRANSDERM ONE; ceFAZolin IN SWFI 2 GM/20 ML SYRINGE IVP ONE
[2018-07-04] MEDS: LACTATED RINGERS 1,000 ML IV SCH (12:18)
[2018-07-04] MEDS ORDERED: LACTATED RINGERS 1,000 ML BAG IV ONE (13:52)
[2018-07-04] MEDS ORDERED: fentaNYL (PF) 50 MCG/ML 2 ML AMP ONE (13:52)
[2018-07-04] MEDS ORDERED: LIDOCAINE 1% INJ 10MG/ML (20 ML MDV) ONE (13:52)
[2018-07-04] MEDS ORDERED: ePHEDrine SULFATE/0.9% NACL/PF 50 MG/5 ML SYRINGE IV ONE (13:52)
[2018-07-04] MEDS ORDERED: SUCCINYLCHOLINE CHLORIDE 100 MG/5 ML SYR IV ONE (13:52)
[2018-07-04] MEDS ORDERED: PROPOFOL 10 MG/ML 20 ML VIAL IV ONE (13:52)
[2018-07-04] MEDS ORDERED: HEPARIN SODIUM,PORCINE 10,000 UNIT/ML 1 ML VIAL ONE (13:52)
[2018-07-04] MEDS ORDERED: MIDAZOLAM 2 MG/2 ML VIAL ONE (13:52)
[2018-07-04] MEDS ORDERED: ROCURONIUM BROMIDE 10 MG/ML 10 ML VIAL IV ONE (13:52)
[2018-07-04] MEDS ORDERED: PHENYLEPHRINE-0.9% NACL SYG 1 MG/10 ML SYRINGE ONE (13:52)
[2018-07-04] MEDS ORDERED: BUPIVACAIN-EPI 0.5%-1:200,000 30 ML VIAL SQ ONE (14:43)
[2018-07-04] MEDS ORDERED: LACTATED RINGERS 1,000 ML IV ONE ×2 (14:49→16:11)
[2018-07-04] MEDS ORDERED: THROMBIN (BOVINE) 5,000 UNIT VIAL MISCELLANE ONE (14:51)
[2018-07-04] MEDS ORDERED: GELATIN SPONGE,ABSORB (LARGE) 1 EACH SPONGE MISCELLANE ONE (14:51)
[2018-07-04] MEDS ORDERED: BENZOCAINE/MENTHOL LOZENG 1 EACH LOZENGE MUCOUS MEM PRN (17:12)
[2018-07-04] MEDS ORDERED: HYDROcodone/APAP 5-325MG 1 EACH TAB PO PRN (17:13)
[2018-07-04] MEDS ORDERED: ONDANSETRON 4 MG/2 ML VIAL IVP PRN (17:13)
[2018-07-04] MEDS ORDERED: NITROGLYCERIN SL TABS 0.4 MG TAB SUBLINGUAL PRN (17:15)
[2018-07-04] MEDS ORDERED: oxyCODONE-APAP 10-325MG 1 EACH TAB PO PRN (17:15)
--- NOTE | 2018-07-04 17:23 | P.OP ---
Date of Procedure: 07/04/18 Preoperative Diagnosis: Dynamic spondylolisthesis L5-S1, grade 2, Severe disc degeneration L5-S1, herniated pulposis L4 5 L5-S1, spinal stenosis L4 5 L5-S1, low back pain, lower extremity radiculopathy, history of laminectomy decompression L5-S1 Postoperative Diagnosis: Same Anesthesia: GETA Pathology: none sent Condition: stable Disposition: PACU Description of Procedure: DESCRIPTION OF PROCEDURE(S): BRIEF OPERATIVE NOTE Preoperative Diagnosis: Dynamic spondylolisthesis L5-S1, grade 2-3, retrolisthesis L4 5 Severe disc degeneration L5-S1, herniated pulposis L4 5 L5-S1, spinal stenosis L4 5 L5-S1, low back pain, lower extremity radiculopathy, history of laminectomy decompression L5-S1 Postoperative Diagnosis:Dynamic spondylolisthesis L5-S1, grade 2-3, retrolisthesis L4 5 Severe disc degeneration L5-S1, herniated pulposis L4 5 L5-S1, spinal stenosis L4 5 L5-S1, low back pain, lower extremity radiculopathy, history of laminectomy decompression L5-S1 Procedure: Laminectomy and decompression L4 5 Revision laminectomy decompression L5-S1 Minimally invasive Posterior lateral decompression and fusion L4 5 L5-S1 Minimally invasive Transforaminal lumbar interbody fusion for a 360 fusion L4 5 L5-S1 Discectomy for decompression L4 5 Revision discectomy for decompression L5-S1 Placement of interbody graft L4 5 L5-S1 Local autogenous bone grafting Harvesting of bone marrow aspirate into the pedicle of L4 for use in grafting Use of Cell Saver Use of bone graft extenders Surgeon: Dr. Benito Field Service Supervisor: Blaine Sutton surgical instrument technician Anesthesia: General anesthesia Estimated blood loss: Approximately 300 mL with 143 given back through Cell Saver Complications: None apparent Components implanted: K2M minimally invasive [place] pedicle screw system with cascade he aeleucian interbody cages with one large osteoamp sponge and 30 mL of DBX bone fibers to supplemental local autogenous and bone marrow aspirate graft, Disposition: To recovery room in good stable condition. OPERATIVE INDICATIONS The patient has had long-standing issues in their lower back and lower extremities. she has had surgeries at her lumbar spine for decompression done at outside institution years ago. She had recurrence of her symptoms and was having progressive pain particularly at her back and lower extremities. She is having worsening pain and significant debility due to her lumbar issues. She is found have a dynamic spondylolisthesis L5-S1 which was grade 2-3. She was having terrible pain particular L5-S1 and was having radicular symptoms stemming from L4 5 and L5-S1. She is also developing retrolisthesis L4 5. We discussed various treatments up with her and she had failed conservative management and exhausted conservative care. The patient has been through conservative treatment. We discussed various treatment options including surgery, and the patient wishes to proceed with surgery We discussed the risk, patient's alternatives and benefits of surgery including but not limited to, risk of bleeding risk of infection, risk of need for further surgery, risk of decreased, loss of motion, muscle function, malunion nonunion, hardware failure, nerve trang ge, paralysis, heart attack, blindness and . OPERATIVE SUMMARY After discussing all the risks, patient alternatives and benefits at length, the patient elected to proceed with surgical intervention, signed informed consent, and presented for their procedure. The patient was seen and examined in the preoperative holding area and the surgical site was marked. The patient was given antibiotics and brought to the operating room. The patient was sedated and intubated by anesthesia in standard fashion. The patient was positioned on to the operating room table in a prone position on the appropriate frame which was well-padded and well molded. We were careful to pad any bony prominences and pressure points. We were careful to maintain the patient's cervical spine and good neutral alignment and position throughout. The patient was prepped and draped in a normal standard fashion. An appropriate timeout and keystone protocol performed. We were able to proceed with the surgery. The local wound area was infiltrated with local anesthetic. I was able utilize C-arm guidance to establish appropriate position over the pedicles bilaterally at the appropriate levels At L4 5 and S1. With the appropriate levels confirmed was able to make small stab incisions over the appropriate pedicle sites bilaterally. she had a prior incision just right of midline from L4 to S1 which we did not use. I was able to establish access at L4-L5 and S1 bilaterally. Utilizing C-arm in his house able to establish a Jamshidi needle over the lateral aspect of the pedicle and advanced the trocar i nto the pedicle being careful not to breech superiorly inferiorly medially or laterally. Position was confirmed regularly with AP and lateral images on C- arm. I was able to establish the trocar into the pedicle appropriately into the posterior aspect of the vertebral body bilaterally at the appropriate levels At L4-L5 and S1 bilaterally. This was done at each of the pedicle positions and each of the vertebrae. I was able place the guidewire into the trocar and into the vertebral body appropriately under C-arm guidance. Dissection was taken down over the wire to the appropriate starting position for the screw placed. The appropriate length screw was chosen, threaded over the guidewire and screwed appropriately into the pedicle and vertebral body under C-arm guidance in excellent alignment and position with good bony purchase. This is done at each of the screw sites at the appropriate levels. With the screws intact I extended the incision to connect the screw hole sites on the most symptomatic side On the left. I dissected down to establish access over the pars and lamina to the base of the spinous process. I was able to expose the facet joint. The capsule the facet was taken down and showed some facet arthrosis at the joint. I was able to use a combination of curettes and Kerrison rongeurs and a high-speed drill to take down the facet joint and do a facetectomy. at L5-S1 there is a severe spondylolisthesis grade was able gain access to the disc space appropriately. There is slight retrolisthesis at L4 5 and I gained easy access to the disc space. Partial laminectomy was also performed. I was able get excellent foraminal decompression and central decompression with undermining across midline to perform a laminectomy centrally and contralaterally. As able get good central decompression. The ligamentum flavum was taken down to further decompress centrally and at bilateral neural foramen. I was able to expose the disc space and visualize the traversing nerve root. there had been prior laminectomy at L5-S1 and I had revised laminectomy. Note was made of some disc protrusion at the level causing further compression of the nerve root. I was able to establish a annulotomy at the appropriate level protecting soft tissue and neural structures. Note was made of some severe disc desiccation at the disc. I performed a complete discectomy with ac commodation of curettes and rasps and scrapers. at L5-S1 there was near complete disc height loss and of but I was able get exposure and gain access to the interbody space. I was able get good endplate preparation at the disc space. I sized for the appropriate size interbody spacer protecting the soft tissue and neural structures. The wound was copiously irrigated and suctioned dry. There is no evidence of any dural tear or leak. I was able to pack the disc space with local autogenous bone graft as well as a small amount of bone graft which was also placed into the interbody cage itself. Protecting the soft tissue structures and neural structures I was able place the interbody cage in good alignment and good position with good fit and fill at the interbody space. His issues was confirmed with C-arm guidance. Good hemostasis maintained. There is no evidence of any dural tear or leak. The wound was irrigated and suctioned dry. With the hardware intact, intraoperative C-arm imaging was again taken which showed good alignment and position of the hardware at the appropriate levels. We were then able to measure, contour and place the rods and appropriate hardware bilaterally. I was able to place capcrews, tighten them down, and torque them with the torque screwdriver appropriately.I was able to get excellent reduction of the listhesis L4 5 and L5-S1. With this intact I was able to place the local autogenous bone graft with additional bone graft enhancer as necessary into the posterior lateral gutters over the decorticated transverse processes. The remainder of the bone graft was placed over the facet joint on the contralateral side after taking down the facet joint capsule. With the bone graft intact, a stable construct, and good decompression at the appropriate levels, we were able to proceed with closure. Good hemostasis was maintained. There is no evidence of dural tear or leak. The fascia was closed for a watertight closure. he subcuticular tissue was closed with absorbable suture. The wound was cleaned and dried and dressed with the appropriate dressing. The drapes were broken down. The patient was gently rolled back onto their hospital bed being careful to maintain their cervical spine and good neutral alignment and position. They were woken up by anesthesia, extubated, and brought to the recovery room in good stable condition. The patient will be admitted to the hospital for appropriate postoperative care, medical management and monitoring. We will continue to follow them closely about the postoperative course.
--- NOTE | 2018-07-04 17:31 | FL ---
EXAMINATION TYPE: FL guidance operating room, XR lumbar spine 2 or 3V DATE OF EXAM: 07/04/2018 CLINICAL HISTORY: Lumbar fusion. Back pain. TECHNIQUE: Fluoroscopy. Intraoperative 2 views lumbar spine. COMPARISON: None. FINDINGS: Fluoroscopic guidance was provided during lumbar fusion surgical procedure performed by Dr Tia Benito. A total of 99 seconds of fluoroscopic time was utilized during the procedure and 6 spot int raoperative images are acquired. Intraoperative images obtained show placement of bilateral interpedicular rods and screws L4-S1 level with artificial disc material also placed L4-L5 and possibly L5-S1 levels. IMPRESSION: As Above.
[2018-07-04] MEDS: HYDROmorphone 0.5 MG/0.5 ML SYRINGE IVP PRN ×4 (17:35→17:53)
[2018-07-04] MEDS ORDERED: diphenhydrAMINE 50 MG/ML 1 ML VIAL IVP ONE ×2 (17:57→18:13)
[2018-07-04] MEDS: HYDROmorphone 1 MG/ML 1 ML SYRINGE IVP PRN ×2 (18:36→22:04)
[2018-07-04 19:12] VITALS: BMI 21.2
[2018-07-04] MEDS: ATORVASTATIN 40 MG TAB PO SCH (20:07)
[2018-07-04] MEDS: TOPIRAMATE 25 MG TAB PO SCH (20:09)
[2018-07-04] MEDS: SODIUM CHLORIDE 0.9% 1,000 ML IV SCH (20:13)
[2018-07-04] MEDS: ceFAZolin IN SWFI 2 GM/20 ML SYRINGE IVP SCH (22:19)
[2018-07-05] MEDS: HYDROmorphone 1 MG/ML 1 ML SYRINGE IVP PRN ×3 (01:19→11:51)
[2018-07-05] MEDS: HYDROcodone/APAP 5-325MG 1 EACH TAB PO PRN ×5 (04:03→22:05)
[2018-07-05] MEDS: ceFAZolin IN SWFI 2 GM/20 ML SYRINGE IVP SCH (05:25)
[2018-07-05] MEDS ORDERED: BISACODYL 5 MG TABLET.DR PO PRN (06:27)
[2018-07-05 07:22] LABS: Basophils % (A) 0 %; Eosinophils # (A) 0.1 k/uL (0-0.7); Eosinophils % (A) 1 %; HCT 32.6 % (34.0-46.0); HGB 10.3 gm/dL (11.4-16.0); Hypochromasia Slight; Lymphocytes # (A) 0.6 k/uL (1.0-4.8); Lymphocytes % (A) 9 %; MCH 27.5 pg (25.0-35.0); MCHC 31.8 g/dL (31.0-37.0); MCV 86.5 fL (80.0-100.0); Mean Platelet Volume 6.7; Monocytes # (A) 0.3 k/uL (0-1.0); Monocytes % (A) 5 %; Neutrophils # (A) 5.6 k/uL (1.3-7.7); Neutrophils % (A) 84 %; Platelet Count 256 k/uL (150-450); RBC 3.77 m/uL (3.80-5.40); RDW 15.6 % (11.5-15.5); WBC 6.7 k/uL (3.8-10.6)
[2018-07-05 07:38] LABS: Calcium 8.8 mg/dL (8.4-10.2); Potassium 4.2 mmol/L (3.5-5.1)
[2018-07-05] MEDS: SENNOSIDES 8.6 MG TAB PO SCH (08:30)
--- NOTE | 2018-07-05 08:30 | CONS ---
CONSULTATION DATE OF SERVICE: 07/04/2018. REASON FOR CONSULTATION: Advice regarding hypertension, hyperlipidemia requested by Dr. Benito. HISTORY OF PRESENT ILLNESS: This is a 57-year-old woman with a past medical history of multiple medical problems such as GERD, hypertension, hyperlipidemia, DJD, history of syncope, history of back surgery, cholecystectomy, anxiety being followed by Dr. Fredy Pope in the outpatient setting, underwent extensive back surgery by Dr. Benito. The patient underwent revision laminectomy and decompression L5-S1 for severe DJD, nucleus pulposus and spinal stenosis. The patient is currently slightly drowsy after surgery. There is no history of any chest pain, no history of palpitation, history of headache, loss of consciousness and most of the history from my discussion with staff and review of the chart and discussed with the family at the bedside. PAST MEDICAL HISTORY: GERD, hypertension, hyperlipidemia, DJD, history of renal disease, history of syncope, history of back surgery. MEDICATIONS: Home medications are: 1. Oxycodone 10 mg 1 p.o. b.i.d. p.r.n. 2. Topamax 50 mg p.o. q.h.s. 3. Prilosec 20 mg p.o. daily. 4. Nitroglycerin 0.4 sublingual p.r.n. 5. Magnesium oxide 400 mg p.o. daily. 6. Cozaar 12.5 mg p.o. daily. 7. Imdur 20 mg p.o. daily. 8. Fenofibrate 160 mg p.o. daily. 9. Drisdol 50,000. 11.Lipitor 40 mg q.h.s. 12.Ecotrin 81 mg p.o. daily. ALLERGIES: AMOXICILLIN, DIAZEPAM, ERYTHROMYCIN, SULFA, BACTRIM, ANDREEA INHIBITOR, STEROIDS. FAMILY HISTORY: No history of heart disease or strokes in the family. Family history of hypertension, hyperlipidemia. SOCIAL HISTORY: Continued ongoing smoking history. Occasional alcohol intake. REVIEW OF SYSTEMS: Review of systems could not be taken because the patient is slightly drowsy at this time after surgery. PHYSICAL EXAM: Pulse is 90, blood pressure 130/75, respiration normal, temperature normal, pulse ox 98% on 4 L. HEENT: Conjunctivae normal. Oral mucosa moist. NECK: No jugular venous distention. No carotid bruit. No lymph node enlargement. CARDIOVASCULAR SYSTEM: S1, S2, muffled. RESPIRATION: Breath sounds diminished at the bases, no rhonchi, no crackles. ABDOMEN: Soft, nontender. No mass palpable. EXTREMITIES: Back surgery. LEGS: No edema, no swelling. NERVOUS SYSTEM: Exam could not be done fully. The patient is slightly drowsy after surgery. SKIN: No ulcers, rash, bleeding. JOINTS: No active deformity or arthropathy, otherwise. LYMPHATICS: No lymph node enlargement in the neck or axillae. LABS: Not available. The preop labs, CBC within normal limits. Coags are within normal limits. CMP shows magnesium was 1.5. Otherwise, within normal limits. ASSESSMENT: 1. Status post revision laminectomy and decompression L5-S1 with severe spinal stenosis and degenerative joint disease. 2. History of gastroesophageal reflux disease. 3. Hypertension. 4. Hyperlipidemia. 5. History of renal failure. 6. History of syncope. 7. History of abdominal aneurysm, monitored by Dr. Freeman. 8. History of back surgery. 9. History of cholecystectomy. 10.History of hysterectomy. 11.History of degenerative joint disease. 12.History of anxiety. 13.History of nicotine dependence. RECOMMENDATION: In this 57-year-old woman who presented with multiple complex medical issues, will monitor the patient closely. Continue with the current management and symptomatic treatment. Otherwise, at this time I recommend resume the home medications. DVT prophylaxis, p.r.n. Ativan for anxiety. Otherwise, continue the home medications. DVT prophylaxis. Will follow the patient closely. The patient may be asked to follow up with her primary physician closely after discharge. Thank you for letting us participate in the care of this patient. MMODL / IJN: [id number] / LE
[2018-07-05] MEDS: FENOFIBRATE 160 MG TAB PO SCH (08:37)
[2018-07-05] MEDS: LOSARTAN 25 MG TAB PO SCH (08:37)
[2018-07-05] MEDS: PANTOPRAZOLE 40 MG TABLET PO SCH (08:37)
[2018-07-05] MEDS: DESVENLAFAXINE SUCCINATE 50 MG TAB.ER.24H PO SCH (08:37)
[2018-07-05] MEDS: ASPIRIN 81 MG PO SCH (08:37)
[2018-07-05] MEDS: ISOSORBIDE MONONITRATE ER 60 MG TAB.ER.24H PO SCH (08:37)
[2018-07-05] MEDS: SENNOSIDES-DOCUSATE SODIUM 1 EACH TAB PO SCH (08:37)
[2018-07-05] MEDS: MAGNESIUM OXIDE 400 MG TAB PO SCH (08:37)
[2018-07-05] MEDS: LACTATED RINGERS 1,000 ML IV SCH (08:38)
[2018-07-05] MEDS: SODIUM CHLORIDE 0.9% 1,000 ML IV SCH ×2 (08:38→20:00)
[2018-07-05] MEDS ORDERED: ISOSORBIDE MONONITRATE ER 30 MG TAB.ER.24H PO SCH (09:00)
[2018-07-05] MEDS: ATORVASTATIN 40 MG TAB PO SCH (22:05)
[2018-07-05] MEDS: TOPIRAMATE 25 MG TAB PO SCH (22:05)
--- NOTE | 2018-07-05 22:22 | PN ---
PROGRESS NOTE DATE OF SERVICE: July 05, 2018. PRESENTING COMPLAINT: Lumbar surgery. INTERVAL HISTORY: Patient is status post lumbar surgery. Sitting up in a chair, having significant pain. is present. Barely ate this morning. When I talked to her, did try some tea. No nausea, vomiting. The patient has significant pain at the operative site. REVIEW OF SYSTEMS: Done for constitutional, cardiovascular, GI, pulmonary and relevant findings as above. CURRENT MEDICATIONS: Reviewed. PHYSICAL EXAMINATION: VITAL SIGNS: Temperature 98.2, pulse 98, respiration 16, blood pressure 96/50, pulse ox 93 percent on room air. GENERAL APPEARANCE: Sitting up on a chair. EYES: Pupils equal. Conjunctivae normal. NECK: JVD not raised. Mass not palpable. RESPIRATORY: Effort normal. LUNGS: Decreased breath sounds. CARDIOVASCULAR: 1st and 2nd sounds normal. No edema. ABDOMEN: Soft, nontender. Liver and spleen not palpable. PSYCHIATRY: Alert and oriented x3. Mood and affect normal. INVESTIGATIONS: White count 6.7, hemoglobin 10.3, potassium 4.2, BUN 14, creatinine 1.10. ASSESSMENT: 1. Status post lumbar surgery. 2. Chronic obstructive pulmonary disease. 3. Chronic stable angina. 4. Essential hypertension. 5. Hyperlipidemia. 6. Peripheral artery disease. 7. Chronic kidney stage 3 from nephrosclerosis. PLAN: Continue current medication and treatment plan. Care was discussed with the patient. Pain control is in place. Encouraged to increase oral intake. Follow. MMODL / IJN: [id number] /
[2018-07-06] MEDS: HYDROcodone/APAP 5-325MG 1 EACH TAB PO PRN ×2 (03:24→07:54)
[2018-07-06] MEDS: LACTATED RINGERS 1,000 ML IV SCH (05:19)
[2018-07-06] MEDS: SENNOSIDES 8.6 MG TAB PO SCH ×2 (07:52→07:54)
[2018-07-06] MEDS: LOSARTAN 25 MG TAB PO SCH (07:54)
[2018-07-06] MEDS: SENNOSIDES-DOCUSATE SODIUM 1 EACH TAB PO SCH (07:54)
[2018-07-06] MEDS: MAGNESIUM OXIDE 400 MG TAB PO SCH (07:55)
[2018-07-06] MEDS: FENOFIBRATE 160 MG TAB PO SCH (07:55)
[2018-07-06] MEDS: ISOSORBIDE MONONITRATE ER 60 MG TAB.ER.24H PO SCH (07:55)
[2018-07-06] MEDS: DESVENLAFAXINE SUCCINATE 50 MG TAB.ER.24H PO SCH (07:55)
[2018-07-06] MEDS: ASPIRIN 81 MG PO SCH (07:55)
[2018-07-06] MEDS: PANTOPRAZOLE 40 MG TABLET PO SCH (07:55)
--- NOTE | 2018-07-06 08:50 | P.PN ---
Progress Note - Text Progress Note Date: 07/06/18 Orthopedic Spine Patient is a pleasant 57-year-old female who is seen and examined at the bedside following posterior lateral decompression and fusion performed Monday. Patient states they are doing ok postsurgically. She has been slow with ambulation postoperatively. Her Madsen catheter has been discontinued this morning. She has been able to transfer to a bedside chair. She has been passing gas but has some mild abdominal discomfort which is generalized and has not had much of an appetite. She states she is going to try to increase mobility today after discontinuation of Madsen catheter. She would like to be discharged home once stable and her pain is better controlled. She does admit to taking Percocet 10 mg/325 mg in the outpatient setting as prescribed and contracted with her primary care provider. Currently does not complain of vomiting, fever, or chills. Patient states pain has been fairly well controlled. Patient is eating and voiding freely without difficulty. Physical Exam Lumbar Fusion: Status post surgical day number 2 Patient is awake, alert, and oriented 3 Vital signs stable Good chest excursion with deep inspiration and expiration Abdomen soft nontender Dorsiflexion, plantarflexion, and extensor hallucis longus positive sustained bilaterally No signs or symptoms of DVT; no calf pain; pneumatic cuffs not currently intact bilateral lower extremities Dressing is removed during physical examination Surgical incision sites are clean, dry, and intact; No erythema, purulence, or signs of infection Dressing is reapplied with nonstick Telfa and Tegaderm Neurovascularly intact bilaterally lower extremities Assessment: L4-5 and L5-S1 minimally invasive posterior lateral decompression and fusion with transforaminal lumbar interbody fusion L4-5 grade 2-3 retrolisthesis L5-S1 dynamic spondylolisthesis History of L5-S1 laminectomy and decompression Plan: 1. Ambulate as tolerated; work with Physical Therapy to increase mobilization 2. Continue pain control with IV and oral medications; we will discontinue [place] 5 mg/325 mg and will add Percocet 10 mg/325 mg as this patient takes this medication in the outpatient setting for pain control as prescribed and contracted with her primary care provider. During her admittance to the hospital we will prescribe this medication once every 8 hours as needed for pain. At discharge we'll plan to have her resume her Percocet 10 mg/325 mg prescription as prescribed by her primary care provider. Any adjustments in the dosing of this medication will be made by her primary care provider. We discussed we are adding Percocet 10 mg/325 mg while trying to wean off IV pain medications in anticipation for discharge home. 3. Dressing changed to Telfa and Tegaderm 4. Medical management can continue to manage patient for patient's other medical issues 5. We will continue to follow the patient closely; if patient is able to improve we'll plan to have her discharged home over the next 1-2 days 6. Patient can follow-up with Gus Sims PA-C or Dr. Trevon Benito at [facility] in 2-3 weeks following discharge
[2018-07-06] MEDS: SODIUM CHLORIDE 0.9% 1,000 ML IV SCH (08:51)
[2018-07-06] MEDS: oxyCODONE-APAP 10-325MG 1 EACH TAB PO PRN ×2 (12:33→19:38)
[2018-07-06] MEDS: ATORVASTATIN 40 MG TAB PO SCH (21:51)
[2018-07-06] MEDS: TOPIRAMATE 25 MG TAB PO SCH (21:51)
--- NOTE | 2018-07-06 21:59 | PN ---
PROGRESS NOTE DATE OF SERVICE: 07/06/2018 PRESENTING COMPLAINT: Lumbar surgery. INTERVAL HISTORY: Patient is status post lumbar surgery. Lying in bed. Pain is slightly better today though still present. Oral intake is still low. Patient had been smoking up until she was admitted. No nausea or vomiting. is present. REVIEW OF SYSTEMS: Done for constitutional, cardiovascular, GI, pulmonary; relevant findings as above. Patient's Madsen catheter was removed this morning. CURRENT MEDICATIONS: Reviewed. PHYSICAL EXAMINATION: Temperature 98.2, pulse 88, respiration 16, blood pressure 146/66, pulse ox 92% on room air. GENERAL APPEARANCE: Lying in bed, awake. EYES: Pupils equal. Conjunctivae normal. NECK: JVD not raised. Mass not palpable. RESPIRATORY: Effort normal. LUNGS: Decreased breath sounds. CARDIOVASCULAR: First and second sounds normal. No edema. ABDOMEN: Soft, non-tender. Liver and spleen not palpable. PSYCHIATRY: Alert and oriented x3. Mood and affect normal. INVESTIGATIONS: No blood work from today. ASSESSMENT: 1. Status post lumbar surgery. 2. Chronic obstructive pulmonary disease in a current smoker. 3. Chronic stable angina. 4. Essential hypertension. 5. Hyperlipidemia. 6. Peripheral artery disease. 7. Chronic kidney disease, stage III, from nephrosclerosis. PLAN: Continue current medication and treatment plan. Encourage patient to be out of bed. Questions were answered. MMODL / IJN: [id number] /
[2018-07-07] MEDS: oxyCODONE-APAP 10-325MG 1 EACH TAB PO PRN ×3 (02:54→21:03)
[2018-07-07] MEDS: LOSARTAN 25 MG TAB PO SCH (08:38)
[2018-07-07] MEDS: ISOSORBIDE MONONITRATE ER 60 MG TAB.ER.24H PO SCH (08:39)
[2018-07-07] MEDS: DESVENLAFAXINE SUCCINATE 50 MG TAB.ER.24H PO SCH (08:39)
[2018-07-07] MEDS: MAGNESIUM OXIDE 400 MG TAB PO SCH (08:39)
[2018-07-07] MEDS: FENOFIBRATE 160 MG TAB PO SCH (08:39)
[2018-07-07] MEDS: PANTOPRAZOLE 40 MG TABLET PO SCH (08:39)
[2018-07-07] MEDS: ASPIRIN 81 MG PO SCH (08:39)
[2018-07-07] MEDS: HYDROmorphone 0.5 MG/0.5 ML SYRINGE IVP PRN ×2 (08:40→12:41)
[2018-07-07] MEDS: SENNOSIDES 8.6 MG TAB PO SCH (08:46)
--- NOTE | 2018-07-07 09:24 | P.PN ---
Subjective Progress Note Date: 07/07/18 This is a 57-year-old female who is status post posterior lateral decompression and fusion on 07/04/2018. Patient states that she is still having pain this morning, but has been up and walking to the bathroom and back. Patient complains of some mild abdominal discomfort, but states that she has been having bowel movements and urinating without difficulty. Patient states that she will work on walking more today. Patient denies any new complaints or symptoms. Objective - Vital Signs Vital signs: Vital Signs Temp 98.1 F 07/07/18 07:24 Pulse 94 07/07/18 07:24 Resp 16 07/07/18 07:24 BP 128/75 07/07/18 07:24 Pulse Ox 96 07/07/18 07:24 Intake & Output 07/06/18 07/07/18 07/07/18 18:59 06:59 18:59 Intake Total 118 2100 Balance 118 2100 Intake: Intake, IV Titration 1200 Amount Sodium Chloride 0.9% 1, 1200 000 ml @ 75 mls/hr IV . [id number] SONI Rx#:[id number] Oral 118 900 Other: # Voids 2 - Exam On exam patient is lying comfortably in bed in no acute distress. Dressing is clean, dry and intact. Calves are soft and nontender bilaterally. Patient has full strength of bilateral lower extremities. Full bilateral foot and ankle motion without pain or difficulty. Patient's abdomen is soft and nontender. Neurovascular status and circulatory status are intact. - Labs CBC & Chem 7: 07/05/18 06:57 07/05/18 06:57 Assessment and Plan Assessment: Status post posterior lateral decompression and fusion (1) Spondylolisthesis Current Visit: Yes Status: Acute Code(s): M43.10 - SPONDYLOLISTHESIS, SITE UNSPECIFIED SNOMED Code(s): 351586839 Plan: 1. Continue routine postoperative care and pain control. 2. Patient to work on mobilization today. 3. Keep dressing clean, dry and intact. 4. Patient may be discharged home when pain is better controlled and she is moving better. 5. Appreciate input from medicine. 6. Anticipate discharge home in the next 1-2 days.
[2018-07-07] MEDS: SENNOSIDES-DOCUSATE SODIUM 1 EACH TAB PO SCH (10:00)
[2018-07-07] MEDS ORDERED: ERGOCALCIFEROL 50,000 UNIT CAP PO SCH (12:00)
[2018-07-07] MEDS: SODIUM CHLORIDE 0.9% 1,000 ML IV SCH ×2 (15:34→15:41)
[2018-07-07] MEDS: LACTATED RINGERS 1,000 ML IV SCH (15:40)
--- NOTE | 2018-07-07 15:59 | PN ---
PROGRESS NOTE DATE OF SERVICE: July 07, 2018. PRESENTING COMPLAINT: Lumbar surgery. INTERVAL HISTORY: Patient is status post lumbar surgery. Back pain is better. Did get up to the bathroom. Oral intake is still low. Overall feeling a bit better. is present. REVIEW OF SYSTEMS: Done for constitutional, cardiovascular, GI, pulmonary and relevant findings as above. CURRENT MEDICATIONS: Reviewed. PHYSICAL EXAMINATION: VITAL SIGNS: Temperature 98.1, pulse 94 respiration 16, blood pressure 120/75, pulse ox 96% on room air. GENERAL APPEARANCE: Sitting at the edge of bed, awake. EYES: Pupils equal. Conjunctivae normal. NECK : JVD not raised. Mass not palpable. RESPIRATORY: Effort normal. LUNGS: Decreased breath sounds. CARDIOVASCULAR: 1st and 2nd sounds normal. No edema. ABDOMEN: Soft, nontender. Liver and spleen not palpable. PSYCHIATRY: Alert and oriented times three. Mood and affect normal. INVESTIGATIONS: No blood work from today. ASSESSMENT: 1. Status post lumbar surgery. 2. Chronic obstructive pulmonary disease in a current smoker. 3. Chronic stable angina. 4. Essential hypertension. 5. Hyperlipidemia. 6. Peripheral artery disease. 7. Chronic kidney disease stage 3 from nephrosclerosis. PLAN: Care was discussed with the patient and . Encouraged to increase oral intake. The patient is getting more active in terms of walking. Follow. MMODL / IJN: [id number] /
[2018-07-07] MEDS: ATORVASTATIN 40 MG TAB PO SCH (21:03)
[2018-07-07] MEDS: TOPIRAMATE 25 MG TAB PO SCH (21:03)
[2018-07-08 02:17] VITALS: TEMP 98.6
[2018-07-08] MEDS: HYDROmorphone 0.5 MG/0.5 ML SYRINGE IVP PRN (02:24)
[2018-07-08 07:28] VITALS: BP 117/63; PULSE 85; RESP 20
[2018-07-08] MEDS: SODIUM CHLORIDE 0.9% 1,000 ML IV SCH (08:21)
[2018-07-08] MEDS: LACTATED RINGERS 1,000 ML IV SCH (08:21)
[2018-07-08] MEDS: SENNOSIDES 8.6 MG TAB PO SCH (08:34)
[2018-07-08] MEDS: oxyCODONE-APAP 10-325MG 1 EACH TAB PO PRN (08:34)
[2018-07-08] MEDS: ASPIRIN 81 MG PO SCH (08:34)
[2018-07-08] MEDS: PANTOPRAZOLE 40 MG TABLET PO SCH (08:34)
[2018-07-08] MEDS: ISOSORBIDE MONONITRATE ER 60 MG TAB.ER.24H PO SCH (08:35)
[2018-07-08] MEDS: FENOFIBRATE 160 MG TAB PO SCH (08:35)
[2018-07-08] MEDS: SENNOSIDES-DOCUSATE SODIUM 1 EACH TAB PO SCH (08:35)
[2018-07-08] MEDS: LOSARTAN 25 MG TAB PO SCH (08:35)
[2018-07-08] MEDS: DESVENLAFAXINE SUCCINATE 50 MG TAB.ER.24H PO SCH (08:35)
[2018-07-08] MEDS: MAGNESIUM OXIDE 400 MG TAB PO SCH (08:35)
--- NOTE | 2018-07-08 08:56 | P.DS ---
Providers Date of admission: 07/04/18 11:47 Expected date of discharge: 07/08/18 Attending physician: Karrie Benito Consults: 07/04/18 17:13 Consult Physician Routine Consulting Provider: Fredy Pope Consult Reason/Comments: Medical management Do you want consulting provider notified?: Yes 07/04/18 17:19 Consult Physician Routine Consulting Provider: Jaya George Consult Reason/Comments: medical management Do you want consulting provider notified?: Yes Primary care physician: Fredy Pope - Discharge Diagnosis(es) (1) Spondylolisthesis Current Visit: Yes Status: Acute Hospital Course: This is a 57-year-old female with known history of spondylolisthesis, retrolisthesis, severe disc degeneration, herniated pulposus, spinal stenosis, low back pain, lower extremity radiculopathy and history of laminectomy decompression. The patient presents for evaluation. After discussion and consideration patient elects to proceed with posterior lateral decompression and fusion. The patient is seen preoperatively by Dr. Benito and medically cleared for surgery by their primary care physician. Patient is admitted to [facility] on 07/04/2018 for posterior lateral decompression and fusion. The procedures performed without complication or sequelae. The patient is doing well postoperatively. Labs and vital signs are stable on day of discharge. On day of discharge patient's incision is healing well. There is minimal erythema. There is no drainage noted at this time. There is minimal soft tissue swelling. Patient has full foot and ankle motion bilaterally without difficulty or pain. Calves are soft and nontender to palpation. Neurovascular status to bilateral lower extremities are intact. Patient is discharged home in good condition. Please see med rec for accurate list of home medications. Plan - Discharge Summary Discharge Rx Participant: Yes New Discharge Prescriptions: No Action Fenofibrate 160 mg PO DAILY oxyCODONE-APAP 10-325MG [Percocet 10-325 mg] 1 tab PO BID PRN PRN Reason: Pain Magnesium Oxide [Mag-Ox] 400 mg PO DAILY Omeprazole [PriLOSEC] 20 mg PO DAILY Ergocalciferol [Vitamin D2 (DRISDOL)] 50,000 unit PO SA Nitroglycerin Sl Tabs [Nitrostat] 0.4 mg SUBLINGUAL Q5M PRN #30 tab PRN Reason: Chest Pain Losartan [Cozaar] 12.5 mg PO DAILY Atorvastatin [Lipitor] 40 mg PO HS Aspirin EC [Ecotrin Low Dose] 81 mg PO DAILY Topiramate [Topamax] 50 mg PO HS Desvenlafaxine [Desvenlafaxine ER] 50 mg PO DAILY Isosorbide Mononitrate ER [Imdur] 20 mg PO DAILY Discharge Medication List Fenofibrate 160 mg PO DAILY 03/07/15 [History] Magnesium Oxide [Mag-Ox] 400 mg PO DAILY 03/07/15 [History] oxyCODONE-APAP 10-325MG [Percocet 10-325 mg] 1 tab PO BID PRN 03/07/15 [History] Ergocalciferol [Vitamin D2 (DRISDOL)] 50,000 unit PO SA 07/24/16 [History] Omeprazole [PriLOSEC] 20 mg PO DAILY 07/24/16 [History] Nitroglycerin Sl Tabs [Nitrostat] 0.4 mg SUBLINGUAL Q5M PRN #30 tab 07/26/16 [Rx] Aspirin EC [Ecotrin Low Dose] 81 mg PO DAILY 02/12/17 [History] Atorvastatin [Lipitor] 40 mg PO HS 02/12/17 [History] Losartan [Cozaar] 12.5 mg PO DAILY 02/12/17 [History] Desvenlafaxine [Desvenlafaxine ER] 50 mg PO DAILY 06/29/18 [History] Isosorbide Mononitrate ER [Imdur] 20 mg PO DAILY 06/29/18 [History] Topiramate [Topamax] 50 mg PO HS 06/29/18 [History] Follow up Appointment(s)/Referral(s): Gus Sims, PAC [PHYSICIAN STUDIO [employer]IP] - 2 Weeks (Patient may follow-up with Gus Sims PA-C or Dr. Trevon Benito at [facility] in 2-3 weeks following discharge. ) Activity/Diet/Wound Care/Special Instructions: 1. Patient may shower with Tegaderm dressing intact. 2. Patient may remove Tegaderm dressing in 3 days and shower without a dressing at that time. 3. Patient should keep Steri-Strips intact and allow them to fall off naturally. 4. Patient should refrain from driving until at least after their first follow- up appointment in the office. 5. Patient should avoid excessive bending, twisting, and lifting; no lifting greater than 10 pounds 6. Take medications as prescribed; resume previously prescribed Percocet 10 mg/ 25 mg as prescribed and contracted with her primary care provider 7. Do not soak in tub Discharge Disposition: HOME SELF-CARE
--- NOTE | 2018-07-08 09:02 | P.PN ---
Subjective Progress Note Date: 07/08/18 This is a 57-year-old female who is status post posterior lateral decompression and fusion on 07/04/2018. Patient states that she has been up and walking. Patient states that she is trying to eat more. Patient complains of mild abdominal discomfort, but states that she is passing gas. Patient denies any new complaints or symptoms. Objective - Vital Signs Vital signs: Vital Signs Temp 98.6 F 07/08/18 07:06 Pulse 85 07/08/18 07:06 Resp 20 07/08/18 07:06 BP 117/63 07/08/18 07:06 Pulse Ox 97 07/08/18 07:06 Intake & Output 07/07/18 07/08/18 07/08/18 18:59 06:59 18:59 Intake Total 1800 Balance 1800 Intake: Intake, IV Titration 1200 Amount Sodium Chloride 0.9% 1, 1200 000 ml @ 75 mls/hr IV . [id number] SONI Rx#:[id number] Oral 600 Other: Voiding Method Toilet # Voids 2 3 - Exam On exam patient is sitting on the edge of the bed in no acute distress. Patient is alert and oriented x3. Dressing is clean, dry and intact. Calves are soft and nontender bilaterally. Patient has full strength of bilateral lower extremities. Full bilateral foot and ankle motion without pain or difficulty. Patient's abdomen is soft and nontender. Neurovascular status and circulatory status are intact. - Labs CBC & Chem 7: 07/05/18 06:57 07/05/18 06:57 Assessment and Plan Assessment: Status post posterior lateral decompression and fusion (1) Spondylolisthesis Current Visit: Yes Status: Acute Code(s): M43.10 - SPONDYLOLISTHESIS, SITE UNSPECIFIED SNOMED Code(s): 848130525 Plan: 1. Continue routine postoperative care and pain control. 2. Patient to continue working on mobilization today. 3. Keep dressing clean, dry and intact. 4. Appreciate input from medicine. 5. Patient may discharge home today if cleared medically.
--- NOTE | 2018-07-08 22:32 | PN ---
PROGRESS NOTE DATE OF SERVICE: 07/08/2018. PRESENTING COMPLAINT: Lumbar surgery. INTERVAL HISTORY: Patient is status post lumbar surgery. Back pain is much improved. Walking better. Did tolerate a diet. Has not had a bowel movement. Keen to go home. Breathing is stable. REVIEW OF SYSTEMS: Done for constitutional, cardiovascular, GI, pulmonary; relevant findings as above. CURRENT MEDICATIONS: Reviewed. PHYSICAL EXAMINATION: VITAL SIGNS: Temperature 98.6, pulse 85, respirations 20, blood pressure 117/63, pulse ox 97% on room air. GENERAL APPEARANCE: Sitting up, feeling better. EYES: Pupils equal. Conjunctivae normal. NECK: JVD not raised. Mass not palpable. Respiratory effort normal. LUNGS: Decreased breath sounds. CARDIOVASCULAR: 1st and 2nd heart sounds. No edema. ABDOMEN: Soft, nontender. Liver and spleen not palpable. PSYCHIATRY: Alert and oriented x3. Mood and affect normal. INVESTIGATIONS: No blood work from today. ASSESSMENT: 1. Status post lumbar surgery, pain much improved, walking better. 2. Chronic obstructive pulmonary disease in a current smoker. 3. Chronic stable angina. 4. Essential hypertension. 5. Hyperlipidemia. 6. Peripheral artery disease. 7. Chronic kidney disease stage 3 from nephrosclerosis. PLAN: Care was discussed at length with the patient and . Patient should follow with family doctor within the week. MMODL / IJN: [id number] /
== END 2018-07-08 13:25 | disposition home or self-care (01) | DRG 455 ==
LOC: 2ORMAIN 11:47 → 4SSUR 17:17
PROVIDERS: ADMIT Orthopaedic Surgery Orthopaedic Surgery of the Spine; ATTEND Orthopaedic Surgery Orthopaedic Surgery of the Spine
PROC: 0SG0071 Fusion of Lumbar Vertebral Joint with Autologous Tissue Substitute, Posterior Approach, Posterior Column, Open Approach (ICD-10-PCS; principal; 2018-07-04 13:00)
PROC: 01NB0ZZ Release Lumbar Nerve, Open Approach (ICD-10-PCS; principal; 2018-07-04 13:00)
PROC: 0SG00AJ Fusion of Lumbar Vertebral Joint with Interbody Fusion Device, Posterior Approach, Anterior Column, Open Approach (ICD-10-PCS; principal; 2018-07-04 13:00)
PROC: 07DS3ZZ Extraction of Vertebral Bone Marrow, Percutaneous Approach (ICD-10-PCS; principal; 2018-07-04 13:00)
PROC: 0SG30AJ Fusion of Lumbosacral Joint with Interbody Fusion Device, Posterior Approach, Anterior Column, Open Approach (ICD-10-PCS; principal; 2018-07-04 13:00)
PROC: 0ST40ZZ Resection of Lumbosacral Disc, Open Approach (ICD-10-PCS; principal; 2018-07-04 13:00)
DX: M43.17 Spondylolisthesis, lumbosacral region (principal); M48.061 Spinal stenosis, lumbar region without neurogenic claudication; M51.16 Intervertebral disc disorders with radiculopathy, lumbar region; E78.5 Hyperlipidemia, unspecified; N18.3 Chronic kidney disease, stage 3 (moderate); M51.26 Other intervertebral disc displacement, lumbar region; F17.200 Nicotine dependence, unspecified, uncomplicated; I20.8 Other forms of angina pectoris; I73.9 Peripheral vascular disease, unspecified; J44.9 Chronic obstructive pulmonary disease, unspecified; K21.9 Gastro-esophageal reflux disease without esophagitis; I71.4 Abdominal aortic aneurysm, without rupture; F41.9 Anxiety disorder, unspecified; M19.90 Unspecified osteoarthritis, unspecified site; Z90.49 Acquired absence of other specified parts of digestive tract; Z90.710 Acquired absence of both cervix and uterus; Z88.0 Allergy status to penicillin; Z88.1 Allergy status to other antibiotic agents; Z88.8 Allergy status to other drugs, medicaments and biological substances; Z88.2 Allergy status to sulfonamides; Z82.49 Family history of ischemic heart disease and other diseases of the circulatory system
CPT/HCPCS: 72100; 80048; 85025; 86850; 86870; 86880; 86885; 86891; 86900; 86901

== ENCOUNTER → 2019-10-03 | Outpatient (CLI) | payer MEDICARE, OTHER ==
--- NOTE | 2019-10-04 08:28 | MM ---
Reason for exam: additional evaluation requested from prior study. Last mammogram was performed 4 years ago. History: Patient is postmenopausal. Family history of breast cancer in maternal aunt at age 60 and breast cancer in sister at age 54. Benign core biopsy of the left breast, 2000. Took hormonal contraceptives for 10 years. Took estrogen for 1 year beginning at age 43. Physical Findings: Nurse did not find any significant physical abnormalities on exam. MG 3D Diag Mammo W/Cad WILLIAM Bilateral CC and MLO view(s) were taken. Prior study comparison: September 18, 2015, bilateral MG 3d screening mammo w/cad. December 13, 2010, bilateral digital screening mammo w/CAD. The breast tissue is heterogeneously dense. This may lower the sensitivity of mammography. No significant new findings when compared with previous films. These results were verbally communicated with the patient and result sheet given to the patient on 10/03/19. ASSESSMENT: Incomplete: need additional imaging evaluation, BI-RAD 0 RECOMMENDATION: Ultrasound of the left breast.
--- NOTE | 2019-10-04 08:30 | USB ---
Reason for exam: additional evaluation requested from abnormal screening. History: Patient is postmenopausal. Family history of breast cancer in maternal aunt at age 60 and breast cancer in sister at age 54. Benign core biopsy of the left breast, 2000. Took hormonal contraceptives for 10 years. Took estrogen for 1 year beginning at age 43. US Breast Limited LT Left limited breast ultrasound including focal area of concern, retroareolar and axilla demonstrates no cystic or solid lesion seen. These results were verbally communicated with the patient and result sheet given to the patient on 10/03/19. ASSESSMENT: Benign, BI-RAD 2 RECOMMENDATION: Routine screening mammogram of both breasts in 1 year. Manage patient on a clinical basis.
== END | disposition home or self-care (01) ==
LOC: RADMAMWWP 13:40
PROVIDERS: ATTEND Family Medicine
DX: N64.4 Mastodynia (principal); R92.8 Other abnormal and inconclusive findings on diagnostic imaging of breast
CPT/HCPCS: 77066; 76642; G0279; 77062

== ENCOUNTER → 2020-05-28 | Outpatient (CLI) | payer MEDICARE, OTHER ==
--- NOTE | 2020-05-28 13:56 | XR ---
EXAMINATION TYPE: XR wrist complete RT DATE OF EXAM: 05/28/2020 COMPARISON: NONE HISTORY: Pain TECHNIQUE: Four views submitted. FINDINGS: The osseous structures are intact. The joint spaces are preserved and there is no acute fracture or dislocation. IMPRESSION: 1. No definite acute fracture or dislocation if symptoms persist, follow-up study in 7 to 10 days wo uld be suggested
== END | disposition home or self-care (01) ==
LOC: RADXRMAIN 13:33
PROVIDERS: ATTEND Family Medicine
DX: M25.531 Pain in right wrist (principal)

== ENCOUNTER → 2021-09-08 | Outpatient (CLI) | payer MEDICARE, OTHER ==
--- NOTE | 2021-09-08 15:19 | US ---
EXAMINATION TYPE: US kidneys/renal and bladder DATE OF EXAM: 09/08/2021 COMPARISON: NONE CLINICAL HISTORY: N18.32 CHRONIC KIDNEY DISEASE, STAGE 3B. Chronic kidney disease stage 3. EXAM MEASUREMENTS: Right Kidney: 11.0 x 6.0 x 4.7 cm Left Kidney: 8.2 x 4.2 x 3.7 cm Right Kidney: No hydro or masses seen. Left Kidney: Appears small in size. Anechoic area seen lower pole: 1.0 x 0.9 x 1.0 cm. Hyperechoic fo cus with posterior shadowing seen lower pole: 0.6 x 0.9 x 0.5 cm. Bladder: Not fully distended, unable to properly evaluate. Patient states her bladder feels very full and that she has to urinate. Bilateral Jets seen: Right jet seen during exam only, limited evaluation. IMPRESSION: 1. Nonobstructing left-sided nephrolithiasis. 2. 1 cm cyst left kidney.
== END | disposition home or self-care (01) ==
LOC: RADUSWWP 14:18
PROVIDERS: ATTEND Internal Medicine Nephrology
DX: N18.32 Chronic kidney disease, stage 3b (principal); N20.0 Calculus of kidney; N28.1 Cyst of kidney, acquired
CPT/HCPCS: 76770

== ENCOUNTER → 2021-11-10 | Outpatient (CLI) | payer MEDICARE, OTHER ==
--- NOTE | 2021-11-10 12:58 | US ---
EXAMINATION TYPE: US thyroid st tissue head/neck DATE OF EXAM: 11/10/2021 COMPARISON: NONE CLINICAL HISTORY: E049 NON TOXIC GOITER. Pt states difficulty swallowing GLAND SIZE: Right Lobe: 4.9 x 2.2 x 1.1 cm Overall Parenchyma: homogenous Left Lobe: 4.7 x 1.4 x 1.1 cm Overall Parenchyma: homogeneous Isthmus Thickness: 0.3 cm NODULES RIGHT: # of nodules measured on right: 0 LEFT: # of nodules measured on left: 1 1. 0.7 X 0.4 x 0.7 cm, mid medial, solid or almost completely solid, isoechoic nodule, which is wid er than tall, with smooth margins, without echogenic foci. Prior size: No prior ISTHMUS: # of nodules measured in the isthmus: 1 1. 0.6 X 0.4 x 0.6 cm cystic or almost completely cystic, hypoechoic nodule, which is wider than ta ll, with smooth margins, without echogenic foci. Prior size: No prior Bilateral neck scanned, no evidence of lymphadenopathy. Small, subcentimeter nodules. IMPRESSION: Nonspecific thyroid nodularity.
--- NOTE | 2021-11-10 13:44 | FL ---
ESOPHOGRAM. HISTORY: Dysphagia Esophagram was performed per the air contrast technique. The patient swallowed barium and effervesce nt crystals without difficulty or delay. Esophageal peristalsis and motility appear to be within normal limits. There is no evidence for filling defect, mass or diverticulum. There is mild prominence of the crico pharyngeus musculature. No hiatal hernia seen. Subsequently single contrast cervical esophagram was performed which fails demonstrate evidence for a spiration penetration or mass. There is reversal of the normal cervical lordosis. There is extensive changes of cervical fusion extending from C3 through C7. IMPRESSION: 1. Hypertrophy of the cricopharyngeus musculature. 2. Reversal of the normal cervical lordosis and extensive changes of cervical fusion.
== END | disposition home or self-care (01) ==
LOC: RADUSWWP 10:51
PROVIDERS: ATTEND Surgery Plastic and Reconstructive Surgery
DX: M40.50 Lordosis, unspecified, site unspecified (principal); J39.2 Other diseases of pharynx; E04.9 Nontoxic goiter, unspecified
CPT/HCPCS: 74220; 76536

== ENCOUNTER → 2021-11-19 | Outpatient (CLI) | payer MEDICARE, OTHER ==
--- NOTE | 2021-11-22 09:26 | MM ---
Reason for Exam: Screening (asymptomatic). Last mammogram was performed 2 year(s) and 1 month(s) ago. Patient History: Menarche at age 13. First Full-Term at age 19. Hysterectomy at age 38. Postmenopausal. Estrogen for 1 year from age 43 until age 44. Patient used Hormonal Contraceptives for 10 years. 2000, Benign Core Biopsy on the left side. Maternal aunt had breast cancer, age 60. Sister had breast cancer, age 54. Risk Values: Betty 5 year model risk: 3.2%. NCI Lifetime model risk: 15.4%. Prior Study Comparison: 12/13/2010 Bilateral Screening Mammogram, [facility]. 09/18/2015 Bilateral Screening Mammogram, [facility]. 10/03/2019 Bilateral Diagnostic Mammogram, [facility]. Tissue Density: The breast tissue is heterogeneously dense. This may lower the sensitivity of mammography. Findings: Analyzed By CAD. There is no suspicious group of microcalcifications or new suspicious mass in either breast. Overall Assessment: Negative, BI-RAD 1 Management: Screening Mammogram of both breasts in 1 year. A clinical breast exam by your physician is recommended on an annual basis and results should be correlated with mammographic findings. Electronically signed and approved by: Venancio Guzmán M.D.
== END | disposition home or self-care (01) ==
LOC: RADMAMWWP 13:14
PROVIDERS: ATTEND Family Medicine
DX: Z12.31 Encounter for screening mammogram for malignant neoplasm of breast (principal); Z78.0 Asymptomatic menopausal state; Z80.3 Family history of malignant neoplasm of breast
CPT/HCPCS: 77063; 77067

== ENCOUNTER 2021-11-22 08:26 | Day surgery (SDC) | payer MEDICARE, OTHER ==
[2021-11-19 10:36] VITALS: BMI 22.6
[~2021-11-22 08:26] MED LIST changes: -BACITRACIN 50,000 UNIT in SODIUM CHLORIDE 0.9% IRRIGATIO 1,000 ML IRRIGATION ONE; -DEXAMETHASONE SOD PHOSPHATE 10 MG/ML 1 ML VIAL IV ONE; +LACTATED RINGERS 1,000 ML IV SCH; +LIDOCAINE 1% (10MG/ML) FOR IV START INTRADERMA PRN; -LIDOCAINE 1% 20 ML VIAL (10MG/ML) FOR IV START INTRADERMA PRN; -MIDAZOLAM 2 MG/2 ML VIAL IV PRN; -ONDANSETRON 4 MG/2 ML VIAL IVP ONE; -SCOPOLAMINE 1.5MG/72HR PATCH TRANSDERM ONE; -ceFAZolin IN SWFI 2 GM/20 ML SYRINGE IVP ONE
--- NOTE | 2021-11-22 08:52 | P.GSHP ---
History of Present Illness H&P Date: 11/22/21 CHIEF COMPLAINT: GERD HISTORY OF PRESENT ILLNESS: The patient is a 61-year-old female who presents reports gastroesophageal reflux disease. Upper endoscopy was offered for further evaluation and management. PAST MEDICAL HISTORY: Please see list. PAST SURGICAL HISTORY: Please see list. MEDICATIONS: Please see list. ALLERGIES: Please see list. SOCIAL HISTORY: No illicit drug use FAMILY HISTORY: No reports of Crohn disease or ulcerative colitis. REVIEW OF ORGAN SYSTEMS: CONSTITUTIONAL: No reports of fevers or chills. GI: Denies any blood in stools or constipation. PHYSICAL EXAM: VITAL SIGNS: Stable GENERAL: Well-developed and pleasant in no acute distress. HEENT: No scleral icterus. Extraocular movements grossly intact. Moist buccal mucosa. NECK: Supple without lymphadenopathy. CHEST: Unlabored respirations. Equal bilateral excursions. CARDIOVASCULAR: Regular rate and rhythm. Distal 2+ pulses. ABDOMEN: Soft, nondistended. MUSCULOSKELETAL: No clubbing, cyanosis, or edema. ASSESSMENT: 1. Gastroesophageal reflux disease PLAN: 1. Recommend proceeding with an upper endoscopy 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, decreased kidney function History of Any Multi-Drug Resistant Organisms: None Reported Past Surgical History: Back Surgery, Cholecystectomy, Hysterectomy, Orthopedic Surgery Additional Past Surgical History / Comment(s): right carotid endarterectomy, neck and back sx, rt thumb sx for trigger thumb, right fem pop bypass Past Anesthesia/Blood Transfusion Reactions: No Reported Reaction Past Psychological History: Anxiety Smoking Status: Current every day smoker Past Alcohol Use History: None Reported Past Drug Use History: None Reported - Past Family History Mother Family Medical History: Hyperlipidemia, Hypertension Sister(s) Family Medical History: Diabetes Mellitus Father Family Medical History: Hyperlipidemia Additional Family Medical History / Comment(s): On heart meds. Blocked arteries Medications and Allergies Home Medications Medication Instructions Recorded Confirmed Type Fenofibrate 160 mg PO DAILY 03/07/15 11/19/21 History oxyCODONE-APAP 10-325MG [Percocet 1 tab PO BID PRN 03/07/15 11/19/21 History 10-325 mg] Aspirin EC [Ecotrin Low Dose] 81 mg PO DAILY 02/12/17 11/19/21 History Atorvastatin [Lipitor] 80 mg PO HS 02/12/17 11/19/21 History Losartan [Cozaar] 25 mg PO DAILY 02/12/17 11/19/21 History Desvenlafaxine [Desvenlafaxine ER] 100 mg PO DAILY 06/29/18 11/19/21 History Isosorbide Mononitrate ER [Imdur] 60 mg PO DAILY 06/29/18 11/19/21 History Calcium Carbonate [Calcium] 500 mg PO DAILY 11/19/21 11/19/21 History Ferrous Sulfate [Feosol] 325 mg PO DAILY 11/19/21 11/19/21 History Metoprolol Succinate [Metoprolol 25 mg PO DAILY 11/19/21 11/19/21 History Succinate ER] Potassium Chloride 10 meq PO DAILY 11/19/21 11/19/21 History Riboflavin (Vitamin B2) [Vitamin 50,000 mg PO Q14D 11/19/21 11/19/21 History B-2] Umeclidinium Brm/Vilanterol Tr 1 puff INHALATION DAILY 11/19/21 11/19/21 History [Anoro Ellipta 62.5-25 Mcg INH] amLODIPine [Norvasc] 5 mg PO HS 11/19/21 11/19/21 History Allergies Allergy/AdvReac Type Severity Reaction Status Date / Time amoxicillin Allergy Itching Verified 11/19/21 10:22 diazepam [From Valium] Allergy Hallucinati Verified 11/19/21 10:22 ons erythromycin base Allergy Nausea & Verified 11/19/21 10:22 Vomiting sulfamethoxazole Allergy Rash/Hives Verified 11/19/21 10:22 [From Bactrim] trimethoprim [From Bactrim] Allergy Rash/Hives Verified 11/19/21 10:22 ANDREEA Inhibitors AdvReac Cough Verified 11/19/21 10:22 STEROIDS AdvReac EYE Uncoded 11/19/21 10:22 PROBLEMS
[2021-11-22] MEDS ORDERED: PROPOFOL 10 MG/ML 20 ML VIAL IV ONE (09:14)
[2021-11-22] MEDS ORDERED: LIDOCAINE 2% INJ 20 MG/ML (2 ML VIAL) ONE (09:14)
[2021-11-22 09:15] VITALS: RESP 16; TEMP 96.8
[2021-11-22 09:35] VITALS: BP 129/79; PULSE 73
--- NOTE | 2021-11-22 09:36 | P.PCN ---
Date of Procedure: 11/22/21 Description of Procedure: PREOPERATIVE DIAGNOSIS: Dysphagia. Gastroesophageal reflux disease Esophageal stricture POSTOPERATIVE DIAGNOSIS: Dysphagia. Gastroesophageal reflux disease Esophageal stricture Gastritis Diaphragmatic hiatal hernia OPERATION: Esophagogastroduodenoscopy with rigid dilator over the guidewire 54 Fr. SURGEON: Lavonne Georges MD ANESTHESIA: MAC. INDICATIONS: The patient is a 61-year-old female who presents with a history of dysphagia. Benefits and risks of the procedure were described. Informed consent was obtained. DESCRIPTION: The patient was brought into the endoscopy suite and laid in the left lateral decubitus position. After a timeout was confirmed, the procedure was initiated. An Olympus gastroscope was passed and the stomach was entered. Mild gastritis was identified. The scope was advanced to the duodenum which was unremarkable. Retroflexion the scope confirmed a Hill grade 3 lower esophageal valve. Next using an [place] rigid dilator, a guidewire was placed through the pediatric gastroscope. Next the scope was withdrawn. A 54-Hebrew rigid A merican dilator was passed carefully along the posterior oropharynx to 50 cm and left in place for 2-3 minutes stretch. The dilator was withdrawn including the guidewire. The scope was reentered along the posterior oropharynx with no findings of full-thickness tear of the upper esophageal sphincter. No full-thickness injury was encountered. The GI tract was desufflated. The patient tolerated the procedure well. FINDINGS: Squamocolumnar junction at 40 cm. Upper esophageal stricture without ulceration Emir[place] rigid dilator 54-Hebrew completed. Diaphragmatic hiatal hernia, 2 cm Diffuse gastritis. Hill grade 3 lower esophageal valve. LA grade A esophagitis. RECOMMENDATIONS: Upper endoscopy as needed Tobacco cessation described Plan - Discharge Summary Discharge Rx Participant: No New Discharge Prescriptions: Continue Fenofibrate 160 mg PO DAILY oxyCODONE-APAP 10-325MG [Percocet 10-325 mg] 1 tab PO BID PRN PRN Reason: Pain Losartan [Cozaar] 25 mg PO DAILY Atorvastatin [Lipitor] 80 mg PO HS Aspirin EC [Ecotrin Low Dose] 81 mg PO DAILY Desvenlafaxine [Desvenlafaxine ER] 100 mg PO DAILY Isosorbide Mononitrate ER [Imdur] 60 mg PO DAILY Potassium Chloride 10 meq PO DAILY Umeclidinium Brm/Vilanterol Tr [Anoro Ellipta 62.5-25 Mcg INH] 1 puff INHALATION DAILY amLODIPine [Norvasc] 5 mg PO HS Calcium Carbonate [Calcium] 500 mg PO DAILY Ferrous Sulfate [Iron (65 MG Elemental)] 325 mg PO DAILY Riboflavin (Vitamin B2) [Vitamin B-2] 50,000 mg PO Q14D Metoprolol Succinate [Metoprolol Succinate ER] 25 mg PO DAILY Discharge Medication List Fenofibrate 160 mg PO DAILY 03/07/15 [History] oxyCODONE-APAP 10-325MG [Percocet 10-325 mg] 1 tab PO BID PRN 03/07/15 [History] Aspirin EC [Ecotrin Low Dose] 81 mg PO DAILY 02/12/17 [History] Atorvastatin [Lipitor] 80 mg PO HS 02/12/17 [History] Losartan [Cozaar] 25 mg PO DAILY 02/12/17 [History] Desvenlafaxine [Desvenlafaxine ER] 100 mg PO DAILY 06/29/18 [History] Isosorbide Mononitrate ER [Imdur] 60 mg PO DAILY 06/29/18 [History] Calcium Carbonate [Calcium] 500 mg PO DAILY 11/19/21 [History] Ferrous Sulfate [Iron (65 MG Elemental)] 325 mg PO DAILY 11/19/21 [History] Metoprolol Succinate [Metoprolol Succinate ER] 25 mg PO DAILY 11/19/21 [History] Potassium Chloride 10 meq PO DAILY 11/19/21 [History] Riboflavin (Vitamin B2) [Vitamin B-2] 50,000 mg PO Q14D 11/19/21 [History] Umeclidinium Brm/Vilanterol Tr [Anoro Ellipta 62.5-25 Mcg INH] 1 puff INHALATION DAILY 11/19/21 [History] amLODIPine [Norvasc] 5 mg PO HS 11/19/21 [History] Follow up Appointment(s)/Referral(s): Lavonne Georges MD [STAFF PHYSICIAN] - 12/07/21 Patient Instructions/Handouts: Esophageal Dilation (GEN), How to Stop Smoking (DC) Activity/Diet/Wound Care/Special Instructions: Stop smoking Discharge Disposition: HOME SELF-CARE
== END 2021-11-22 10:28 | disposition home or self-care (01) ==
LOC: ORWHC2ENDO 08:26
PROVIDERS: ATTEND Surgery Plastic and Reconstructive Surgery
DX: K22.2 Esophageal obstruction (principal); K29.70 Gastritis, unspecified, without bleeding; K44.9 Diaphragmatic hernia without obstruction or gangrene; K21.00 Gastro-esophageal reflux disease with esophagitis, without bleeding; E78.5 Hyperlipidemia, unspecified; I10 Essential (primary) hypertension; R55 Syncope and collapse; F17.210 Nicotine dependence, cigarettes, uncomplicated; I71.40 Abdominal aortic aneurysm, without rupture, unspecified; Z90.49 Acquired absence of other specified parts of digestive tract; Z90.710 Acquired absence of both cervix and uterus; Z98.890 Other specified postprocedural states; Z83.3 Family history of diabetes mellitus; Z83.438 Family history of other disorder of lipoprotein metabolism and other lipidemia; Z82.49 Family history of ischemic heart disease and other diseases of the circulatory system; Z79.82 Long term (current) use of aspirin; Z88.0 Allergy status to penicillin; Z88.8 Allergy status to other drugs, medicaments and biological substances; Z79.899 Other long term (current) drug therapy
CPT/HCPCS: 43248; J2704; J2001; 43249

== ENCOUNTER → 2022-01-27 | Outpatient (CLI) | payer MEDICARE, OTHER ==
--- NOTE | 2022-01-27 15:49 | FL ---
EXAMINATION TYPE: FL barium swallow DATE OF EXAM: 01/27/2022 CLINICAL INDICATION: 61-year-old female R13.10, dysphagia, patient with a previous esophageal leak an d repair, recent esophageal ballooning, previous ACDF removal. COMPARISON: 11/10/2021 Total Fluoroscopy Time: 2 minutes 35 seconds 66 images obtained. FINDINGS: There is C3-C7 interbody ankylosis with reversal of the normal cervical lordosis. During swallows, we see focal hypertrophy of the cricopharyngeus resulting in thumbprinting along the posterior wall of the upper cervical esophagus. This results in a prominent ridge of contrast meter attendant iorly. Either related to patulous hypopharynx or developing patulous anchors diverticulum. The thoracic portion has a normal course and caliber. No filling defect or discrete mucosal lesion is seen. Mild tertiary peristaltic waves are encountered. There appears to be a tiny hiatal hernia. However, gastroesophageal reflux could not be elicited duri ng the course of the exam. IMPRESSION: 1. C3-C7 interbody ankylosis with reversal of the normal cervical lordosis. 2. CP muscle spasm. This may contribute to a relative obstruction with some solid consistencies. 3. Prominent ridge of contrast located posteriorly above the thickened cricopharyngeus. This could re present a patulous portion of the hypopharynx or a patulous developing Zenker's diverticulum. 4. Tiny hiatal hernia. However, gastroesophageal reflux was not seen during the course of the exam.
== END | disposition home or self-care (01) ==
LOC: RADUSWWP 10:49
PROVIDERS: ATTEND Otolaryngology
DX: K44.9 Diaphragmatic hernia without obstruction or gangrene (principal); M43.22 Fusion of spine, cervical region; M62.838 Other muscle spasm; R13.10 Dysphagia, unspecified
CPT/HCPCS: 74220

== ENCOUNTER → 2022-02-03 | Outpatient (CLI) | payer MEDICARE, OTHER | END | disposition home or self-care (01) | LOC: RADCTMAIN 11:08 | PROVIDERS: ATTEND Surgery | DX: I73.9 Peripheral vascular disease, unspecified (principal) | CPT/HCPCS: 82565; 84520 ==

== ENCOUNTER → 2022-03-10 | Outpatient (CLI) | payer MEDICARE, OTHER ==
[~2022-03-10] MED LIST changes: -LACTATED RINGERS 1,000 ML IV SCH; -LIDOCAINE 1% (10MG/ML) FOR IV START INTRADERMA PRN; +SODIUM CHLORIDE 0.9% 1,000 ML in EMPTY BAG 1 BAG IV ONE
--- NOTE | 2022-03-11 08:16 | CT ---
EXAMINATION TYPE: CT angio abd aorta w/Runoff CT DLP: 1432 mGycm, Automated exposure control for dose reduction was used. DATE OF EXAM: 03/10/2022 6:04 PM COMPARISON: 07/24/2016 CLINICAL INDICATION:Female, 61 years old with history of I71.4 I73.9; Abdominal aortic aneurysm TECHNIQUE: Multiple thin slice sub-millimeter images were obtained through the abdomen, pelvis, and l ower extremities after administration of contrast. 3-D reconstructed images and maximum intensity pr ojection images were obtained of the abdomen, pelvis, and lower extremities. CT Contrast: Contrast used: 125 cc of [id number]-[id number] Oral contrast used: None FINDINGS: CTA Abdomen and pelvis: Visualized lower thoracic aorta demonstrates atherosclerosis along its course. No evidence of aneurys mal dilation of the thoracic aorta. The abdominal aorta demonstrates atherosclerosis along its course. There is fusiform dilation extendi ng approximately 10.0 cm with superimposed saccular outpouching (series 13 image 48) near the left re nal sinus. Dilation measuring 4.5 x 5.0 cm, previously 3.3 x 4.1 cm when measuring similarly. The origins of the superior mesenteric artery, renal arteries, inferior mesenteric artery, and celiac axis are patent. There is narrowing of the left renal artery at its ostium which is suboptimally ev aluated given its small caliber. There is one right renal artery which is patent. The common iliac ar teries demonstrate calcified and noncalcified plaque along their course. Mild fusiform dilation of th e left common iliac artery measuring up to 16 mm. The external iliac arteries are patent with scatter ed calcified and noncalcified plaque. CTA Lower extremities: Right: The common femoral artery is patent. There is a femoral popliteal bypass graft which appears i ntact and patent. The [place] superficial femoral artery is occluded. The popliteal artery is patent. The posterior tibial artery as well as the peroneal artery are patent. The anterior tibial artery is diminutive with minimal opacification extending across the ankle. The posterior tibial artery appears normal caliber and does cross the ankle. Left: The common femoral and superficial femoral arteries are patent. There is scattered atherosclero sis along the superficial femoral artery with at least 50% in the midportion starting around series 5 image 262 and extending to the adductor hiatus. Additional The popliteal artery is patent. Anterior and posterior tibial arteries as well as the peroneal artery are patent. Anterior and posterior tibia l arteries cross the ankle. LOWER CHEST: No evidence of focal consolidation, pneumothorax or pleural effusion. Centrilobular emph ysema changes most pronounced posteriorly. The heart is within normal limits for size there is modera te coronary artery calcifications. LIVER: Unremarkable GALLBLADDER AND BILE DUCTS: The gallbladder surgically absent. PANCREAS: Unremarkable. SPLEEN: Unremarkable. ADRENAL GLANDS: Unremarkable. KIDNEYS AND URETERS: Atrophic left kidney. There is no evidence of hydronephrosis. Left inferior ekaterina l calculus measuring 5 mm. PELVIS BLADDER: Unremarkable REPRODUCTIVE: The uterus is surgically absent. ABDOMEN & PELVIS STOMACH AND BOWEL: No evidence of bowel obstruction. The appendix is normal. Few scattered clonic div erticula are present. PERITONEUM: No evidence of pneumoperitoneum or free fluid. MUSCULOSKELETAL: No acute osseous abnormalities, multilevel disc degeneration changes throughout the spine with hardware extending from L4 to S1. Hardware appears intact and appropriate position. Discec sahara at L4-L5. LYMPH NODES: No gross evidence for lymphadenopathy. 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 No measuring up to 5.0 cm with mural thrombus. Vascular surgery consultation recommended. * Atrophic left kidney with left renal artery stenosis at its origin. * Colonic diverticulosis. Right lower externally: 1. Patent femoral popliteal bypass graft. [place] superficial femoral artery occlusion. 2. Diminutive anterior tibial artery with decreased flow cross the ankle. 3. Posterior tibial artery crosses the ankle. Left lower extremity: 1. No evidence of vascular occlusion. 2. Long segment of luminal narrowing of the mid and distal portion of the superficial femoral artery. This is felt to be up to 50%. 3. Both the posterior tibial and anterior tibial arteries cross the ankle
== END | disposition home or self-care (01) ==
LOC: RADCTMAIN 13:30
PROVIDERS: ATTEND Surgery
DX: I74.10 Embolism and thrombosis of unspecified parts of aorta (principal); I73.9 Peripheral vascular disease, unspecified; N28.9 Disorder of kidney and ureter, unspecified; I71.40 Abdominal aortic aneurysm, without rupture, unspecified; N26.1 Atrophy of kidney (terminal); K57.30 Diverticulosis of large intestine without perforation or abscess without bleeding; I70.1 Atherosclerosis of renal artery; I74.3 Embolism and thrombosis of arteries of the lower extremities
CPT/HCPCS: 82565; 84520; 75635; Q9967

== ENCOUNTER 2022-06-21 15:56 | Emergency (ER) | payer MEDICARE, OTHER ==
[2022-06-21 16:24] VITALS: TEMP 99.3
--- NOTE | 2022-06-21 16:44 | ED ---
General Adult HPI - General Chief complaint: Upper Respiratory Infection Stated complaint: ABD PAIN-COUGH Time Seen by Provider: 06/21/22 16:33 Source: patient Mode of arrival: ambulatory Limitations: no limitations - History of Present Illness Initial comments: This patient is a 61-year-old woman who presents to have evaluation for a constellation of symptoms. The patient states she believes that her sister passed on a respiratory infection to her. She states that her sister had visited, and then on Monday she started to have congestion and cough. She states that now after a few days of cough she is having some chest pains related to the cough. She is having some yellowish sputum. She feels short of breath at times. She has not noted fever or chills. -: days(s) Location: chest Quality: aching Consistency: intermittent Improves with: none Worsens with: other (Cough) Associated Symptoms: cough, shortness of breath Treatments Prior to Arrival: none - Related Data Home Medications Medication Instructions Recorded Confirmed Fenofibrate 160 mg PO DAILY 03/07/15 11/19/21 oxyCODONE-APAP 10-325MG [Percocet 1 tab PO BID PRN 03/07/15 11/19/21 10-325 mg] Aspirin EC [Ecotrin Low Dose] 81 mg PO DAILY 02/12/17 11/19/21 Atorvastatin [Lipitor] 80 mg PO HS 02/12/17 11/19/21 Losartan [Cozaar] 25 mg PO DAILY 02/12/17 11/19/21 Desvenlafaxine [Desvenlafaxine ER] 100 mg PO DAILY 06/29/18 11/19/21 Isosorbide Mononitrate ER [Imdur] 60 mg PO DAILY 06/29/18 11/19/21 Calcium Carbonate [Calcium] 500 mg PO DAILY 11/19/21 11/19/21 Ferrous Sulfate [Iron (65 MG 325 mg PO DAILY 11/19/21 11/19/21 Elemental)] Metoprolol Succinate [Metoprolol 25 mg PO DAILY 11/19/21 11/19/21 Succinate ER] Potassium Chloride 10 meq PO DAILY 11/19/21 11/19/21 Riboflavin (Vitamin B2) [Vitamin 50,000 mg PO Q14D 11/19/21 11/19/21 B-2] Umeclidinium Brm/Vilanterol Tr 1 puff INHALATION DAILY 11/19/21 11/19/21 [Anoro Ellipta 62.5-25 Mcg INH] amLODIPine [Norvasc] 5 mg PO HS 11/19/21 11/19/21 Previous Rx's Medication Instructions Recorded Albuterol Inhaler [Ventolin Hfa 1 - 2 puff INHALATION Q6HR PRN #1 06/21/22 Inhaler] each Azithromycin [Zithromax] 0 mg PO DIRECTED #6 tab 06/21/22 Inhaler, Assist Devices 1 device MISCELLANE DIRECTED #1 06/21/22 [Aerochamber Mv] each predniSONE 60 mg PO DAILY #30 tab 06/21/22 Allergies Allergy/AdvReac Type Severity Reaction Status Date / Time amoxicillin Allergy Itching Verified 06/21/22 16:24 diazepam [From Valium] Allergy Hallucinati Verified 06/21/22 16:24 ons erythromycin base Allergy Nausea & Verified 06/21/22 16:24 Vomiting sulfamethoxazole Allergy Rash/Hives Verified 06/21/22 16:24 [From Bactrim] trimethoprim [From Bactrim] Allergy Rash/Hives Verified 06/21/22 16:24 ANDREEA Inhibitors AdvReac Cough Verified 06/21/22 16:24 STEROIDS AdvReac EYE Uncoded 06/21/22 16:24 PROBLEMS Review of Systems ROS Statement: Those systems with pertinent positive or pertinent negative responses have been documented in the HPI. ROS Other: All systems not noted in ROS Statement are negative. Constitutional: Denies: fever, chills, weakness ENT: Reports: congestion Respiratory: Reports: cough, dyspnea, wheezes. Denies: hemoptysis Cardiovascular: Reports: chest pain. Denies: palpitations, orthopnea, edema, syncope Gastrointestinal: Denies: abdominal pain, vomiting, diarrhea Genitourinary: Denies: dysuria, hematuria Musculoskeletal: Reports: back pain Skin: Denies: rash Neurological: Denies: headache, weakness 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, decreased kidney function History of Any Multi-Drug Resistant Organisms: None Reported Past Surgical History: Back Surgery, Cholecystectomy, Hysterectomy, Orthopedic Surgery Additional Past Surgical History / Comment(s): right carotid endarterectomy, neck and back sx, rt thumb sx for trigger thumb, right fem pop bypass Past Anesthesia/Blood Transfusion Reactions: No Reported Reaction Past Psychological History: Anxiety Smoking Status: Current every day smoker Past Alcohol Use History: None Reported Past Drug Use History: None Reported - Past Family History Mother Family Medical History: Hyperlipidemia, Hypertension Sister(s) Family Medical History: Diabetes Mellitus Father Family Medical History: Hyperlipidemia Additional Family Medical History / Comment(s): On heart meds. Blocked arteries General Exam Limitations: no limitations General appearance: alert, in no apparent distress Head exam: Present: atraumatic, normocephalic Eye exam: Present: normal appearance. Absent: scleral icterus, conjunctival injection Neck exam: Present: normal inspection Respiratory exam: Present: normal lung sounds bilaterally. Absent: respiratory distress, wheezes, rales, rhonchi, stridor Cardiovascular Exam: Present: regular rate, normal rhythm, normal heart sounds. Absent: systolic murmur, diastolic murmur, rubs, gallop GI/Abdominal exam: Present: soft. Absent: distended, tenderness, guarding, rebound, rigid, mass Extremities exam: Present: normal inspection, normal capillary refill. Absent: pedal edema, calf tenderness Back exam: Present: normal inspection. Absent: CVA tenderness (R), CVA tenderness (L) Neurological exam: Present: alert Skin exam: Present: warm, dry, intact, normal color. Absent: rash Course Vital Signs 06/21/22 06/21/22 06/21/22 16:19 16:45 17:16 Temperature 99.3 F Pulse Rate 113 H 123 H 96 Respiratory 20 22 Rate Blood Pressure 173/38 177/95 O2 Sat by Pulse 98 99 Oximetry 06/21/22 06/21/22 06/21/22 17:23 17:34 17:38 Temperature Pulse Rate 95 105 H Respiratory 20 20 Rate Blood Pressure 109/76 O2 Sat by Pulse 97 Oximetry 06/21/22 06/21/22 06/21/22 18:00 19:00 19:43 Temperature Pulse Rate 100 110 H 88 Respiratory 20 20 20 Rate Blood Pressure 160/85 156/92 148/88 O2 Sat by Pulse 98 97 96 Oximetry EKG Findings - EKG Results: EKG: interpreted by ERMD, sinus rhythm, normal axis, normal QRS EKG shows: tachycardia (Rate 110 bpm) Medical Decision Making - Medical Decision Making This patient is 61-year-old woman here for dyspnea. She has had marked i mprovement following treatment and would like to go home. We discussed appropriate further care and follow-up as well as return parameters. The patient did have chest x-ray which I interpreted as not showing acute infiltrate, congestive heart failure or pneumothorax. Was pt. sent in by a medical professional or institution (, [facility], STATISTICAL CLERK ADVERTISING, urgent care, hospital, or shelter...) When possible be specific @ -[No] Did you speak to anyone other than the patient for history (EMS, parent, family, police, friend...)? What history was obtained from this source @ -[No] Did you review nursing and triage notes (agree or disagree)? Why? @ -[I reviewed and agree with nursing and triage notes] Were old charts reviewed (outside hosp., previous admission, EMS record, old EKG, old radiological studies, urgent care reports/EKG's, shelter records)? Report findings @ -[No old charts were reviewed] Differential Diagnosis (chest pain, altered mental status, abdominal pain women, abdominal pain men, vaginal bleeding, weakness, fever, dyspnea, syncope, headache, dizziness, GI bleed, back pain, seizure, CVA, palpatations, mental health, musculoskeletal)? @ -[Differential Dyspnea: Coronary syndrome, arrhythmia, tamponade, asthma, COPD, pulmonary embolism, pneumonia, pneumothorax, pulmonary effusion, anaphylaxis, diabetic ketoacidosis, flailed chest, pulmonary contusion, diaphragmatic rupture, anemia, neuromuscular, this is not meant to be an all-inclusive list. EKG interpreted by me (3pts min.). @ -[As above] X-rays interpreted by me (1pt min.). @ -[N as above CT interpreted by me (1pt min.). @ -[None done] U/S interpreted by me (1pt. min.). @ -[None done] What testing was considered but not performed or refused? (CT, X-rays, U/S, labs)? Why? @ -[None] What meds were considered but not given or refused? Why? @ -[None] Did you discuss the management of the patient with other professionals (professionals i.e. , [facility], STATISTICAL CLERK ADVERTISING, lab, RT, psych nurse, psych social worker, machine guide base winder, teacher, physics technical officer, manager case)? Give summary @ -[No] Was smoking cessation discussed for >3mins.? @ -[No] Was critical care preformed (if so, how long)? @ -[No] Were there social determinants of health that impacted care today? How? (Homelessness, low income, unemployed, alcoholism, drug addiction, transportation, low edu. Level, literacy, decrease access to med. care, mcc, rehab)? @ -[No] Was there de-escalation of care discussed even if they declined (Discuss DNR or withdrawal of care, Hospice)? DNR status @ -[No] What co-morbidities impacted this encounter? (DM, HTN, Smoking, COPD, CAD, Cancer, CVA, ARF, Chemo, Hep., AIDS, mental health diagnosis, sleep apnea, morbi d obesity)? @ -[COPD Was patient admitted / discharged? Hospital course, mention meds given and route, prescriptions, significant lab abnormalities, going to OR and other pertinent info. @ -[Discharged Undiagnosed new problem with uncertain prognosis? @ -[No] Drug Therapy requiring intensive monitoring for toxicity (Heparin, Nitro, Insulin, Cardizem)? @ -[No] Were any procedures done? @ -[No] Diagnosis/symptom? @ -[Acute exacerbation of COPD Acute, or Chronic, or Acute on Chronic? @ -[Acute on chronic Uncomplicated (without systemic symptoms) or Complicated (systemic symptoms)? @ -[default] Side effects of treatment? @ -[No] Exacerbation, Progression, or Severe Exacerbation? @ -[Exacerbation Poses a threat to life or bodily function? How? (Chest pain, USA, NM, pneumonia, PE, COPD, DKA, ARF, appy, cholecystitis, CVA, Diverticulitis, Homicidal, Suicidal, threat to staff... and all critical care pts) @ -[Yes, untreated exacerbation of COPD may progress to respiratory failure and . - Lab Data Result diagrams: 06/21/22 16:41 06/21/22 16:41 Lab Results 06/21/22 06/21/22 06/21/22 Range/Units 16:41 16:41 16:41 WBC 9.4 (3.8-10.6) k/uL RBC 4.46 (3.80-5.40) m/uL Hgb 12.8 (11.4-16.0) gm/dL Hct 37.5 (34.0-46.0) % MCV 84.1 (80.0-100.0) fL MCH 28.6 (25.0-35.0) pg MCHC 34.1 (31.0-37.0) g/dL RDW 15.3 (11.5-15.5) % Plt Count 264 (150-450) k/uL MPV 7.7 Neutrophils % 79 % Lymphocytes % 11 % Monocytes % 6 % Eosinophils % 2 % Basophils % 0 % Neutrophils # 7.4 (1.3-7.7) k/uL Lymphocytes # 1.0 (1.0-4.8) k/uL Monocytes # 0.6 (0-1.0) k/uL Eosinophils # 0.2 (0-0.7) k/uL Basophils # 0.0 (0-0.2) k/uL PT 10.3 (9.0-12.0) sec INR 1.0 (<1.2) APTT 28.9 (22.0-30.0) sec D-Dimer 1.64 H (<0.60) mg/L FEU Sodium 135 L (137-145) mmol/L Potassium 3.8 (3.5-5.1) mmol/L Chloride 101 (98-107) mmol/L Carbon Dioxide 23 (22-30) mmol/L Anion Gap 11 mmol/L BUN 27 H (7-17) mg/dL Creatinine 1.18 H (0.52-1.04) mg/dL Est GFR (CKD-EPI)AfAm 58 (>60 ml/min/1.73 sqM) Est GFR (CKD-EPI)NonAf 50 (>60 ml/min/1.73 sqM) Glucose 106 H (74-99) mg/dL Plasma Lactic Acid Dayday (0.7-2.0) mmol/L Calcium 8.8 (8.4-10.2) mg/dL Total Bilirubin 1.0 (0.2-1.3) mg/dL AST 53 H (14-36) U/L ALT 30 (4-34) U/L Alkaline Phosphatase 85 (38-126) U/L Troponin I (0.000-0.034) ng/mL NT-Pro-B Natriuret Pep pg/mL Total Protein 7.3 (6.3-8.2) g/dL Albumin 3.9 (3.5-5.0) g/dL Influenza Type A (PCR) (Not Detectd) Influenza Type B (PCR) (Not Detectd) RSV (PCR) (Not Detectd) SARS-CoV-2 (PCR) (Not Detectd) 06/21/22 06/21/22 06/21/22 Range/Units 16:41 16:41 16:41 WBC (3.8-10.6) k/uL RBC (3.80-5.40) m/uL Hgb (11.4-16.0) gm/dL Hct (34.0-46.0) % MCV (80.0-100.0) fL MCH (25.0-35.0) pg MCHC (31.0-37.0) g/dL RDW (11.5-15.5) % Plt Count (150-450) k/uL MPV Neutrophils % % Lymphocytes % % Monocytes % % Eosinophils % % Basophils % % Neutrophils # (1.3-7.7) k/uL Lymphocytes # (1.0-4.8) k/uL Monocytes # (0-1.0) k/uL Eosinophils # (0-0.7) k/uL Basophils # (0-0.2) k/uL PT (9.0-12.0) sec INR (<1.2) APTT (22.0-30.0) sec D-Dimer (<0.60) mg/L FEU Sodium (137-145) mmol/L Potassium (3.5-5.1) mmol/L Chloride (98-107) mmol/L Carbon Dioxide (22-30) mmol/L Anion Gap mmol/L BUN (7-17) mg/dL Creatinine (0.52-1.04) mg/dL Est GFR (CKD-EPI)AfAm (>60 ml/min/1.73 sqM) Est GFR (CKD-EPI)NonAf (>60 ml/min/1.73 sqM) Glucose (74-99) mg/dL Plasma Lactic Acid Dayday 1.2 (0.7-2.0) mmol/L Calcium (8.4-10.2) mg/dL Total Bilirubin (0.2-1.3) mg/dL AST (14-36) U/L ALT (4-34) U/L Alkaline Phosphatase (38-126) U/L Troponin I <0.012 (0.000-0.034) ng/mL NT-Pro-B Natriuret Pep 465 pg/mL Total Protein (6.3-8.2) g/dL Albumin (3.5-5.0) g/dL Influenza Type A (PCR) (Not Detectd) Influenza Type B (PCR) (Not Detectd) RSV (PCR) (Not Detectd) SARS-CoV-2 (PCR) (Not Detectd) 06/21/22 Range/Units 17:12 WBC (3.8-10.6) k/uL RBC (3.80-5.40) m/uL Hgb (11.4-16.0) gm/dL Hct (34.0-46.0) % MCV (80.0-100.0) fL MCH (25.0-35.0) pg MCHC (31.0-37.0) g/dL RDW (11.5-15.5) % Plt Count (150-450) k/uL MPV Neutrophils % % Lymphocytes % % Monocytes % % Eosinophils % % Basophils % % Neutrophils # (1.3-7.7) k/uL Lymphocytes # (1.0-4.8) k/uL Monocytes # (0-1.0) k/uL Eosinophils # (0-0.7) k/uL Basophils # (0-0.2) k/uL PT (9.0-12.0) sec INR (<1.2) APTT (22.0-30.0) sec D-Dimer (<0.60) mg/L FEU Sodium (137-145) mmol/L Potassium (3.5-5.1) mmol/L Chloride (98-107) mmol/L Carbon Dioxide (22-30) mmol/L Anion Gap mmol/L BUN (7-17) mg/dL Creatinine (0.52-1.04) mg/dL Est GFR (CKD-EPI)AfAm (>60 ml/min/1.73 sqM) Est GFR (CKD-EPI)NonAf (>60 ml/min/1.73 sqM) Glucose (74-99) mg/dL Plasma Lactic Acid Dayday (0.7-2.0) mmol/L Calcium (8.4-10.2) mg/dL Total Bilirubin (0.2-1.3) mg/dL AST (14-36) U/L ALT (4-34) U/L Alkaline Phosphatase (38-126) U/L Troponin I (0.000-0.034) ng/mL NT-Pro-B Natriuret Pep pg/mL Total Protein (6.3-8.2) g/dL Albumin (3.5-5.0) g/dL Influenza Type A (PCR) Not Detected (Not Detectd) Influenza Type B (PCR) Not Detected (Not Detectd) RSV (PCR) Not Detected (Not Detectd) SARS-CoV-2 (PCR) Not Detected (Not Detectd) Disposition Clinical Impression: COPD exacerbation, Hypertension Disposition: HOME SELF-CARE Condition: Good Instructions (If sedation given, give patient instructions): COPD (Chronic Obstructive Pulmonary Disease) (ED), Hypertension (ED) Additional Instructions: As we discussed, see Dr. Madsen tomorrow as she had planned to see if your surgery will be performed as scheduled or if it needs to be delayed. She should also advise on whether or not to start the course of prednisone based on the surgery schedule. She just experience any recurrence of symptoms or worsen any way prior to that return to the emergency department. Prescriptions: Inhaler, Assist Devices [Aerochamber Mv] 1 device MISCELLANE DIRECTED #1 each predniSONE 60 mg PO DAILY #30 tab Albuterol Inhaler [Ventolin Hfa Inhaler] 1 - 2 puff INHALATION Q6HR PRN #1 each PRN Reason: Wheezing Azithromycin [Zithromax] 0 mg PO DIRECTED #6 tab Is patient prescribed a controlled substance at d/c from ED?: No Referrals: Fredy Pope DO [Primary Care Provider] - 1-2 days Patricia Madsen DO [STAFF PHYSICIAN] - 1-2 days
[2022-06-21] MEDS ORDERED: IPRATROPIUM-ALBUTEROL 3 ML NEB INHALATION STA (16:58)
[2022-06-21] MEDS ORDERED: HYDROmorphone 1 MG/ML 1 ML SYRINGE IVP STA (16:59)
[2022-06-21] MEDS ORDERED: amLODIPine 5 MG TAB PO STA (17:01)
[2022-06-21 17:29] LABS: Basophils % (A) 0 %; Eosinophils # (A) 0.2 k/uL (0-0.7); Eosinophils % (A) 2 %; HCT 37.5 % (34.0-46.0); HGB 12.8 gm/dL (11.4-16.0); Lymphocytes % (A) 11 %; MCH 28.6 pg (25.0-35.0); MCHC 34.1 g/dL (31.0-37.0); MCV 84.1 fL (80.0-100.0); Mean Platelet Volume 7.7; Monocytes # (A) 0.6 k/uL (0-1.0); Monocytes % (A) 6 %; Neutrophils # (A) 7.4 k/uL (1.3-7.7); Neutrophils % (A) 79 %; Platelet Count 264 k/uL (150-450); RBC 4.46 m/uL (3.80-5.40); RDW 15.3 % (11.5-15.5); WBC 9.4 k/uL (3.8-10.6)
[2022-06-21 17:35] VITALS: RESP 20
[2022-06-21 17:41] LABS: Albumin 3.9 g/dL (3.5-5.0); Calcium 8.8 mg/dL (8.4-10.2); Total Protein 7.3 g/dL (6.3-8.2)
[2022-06-21 17:47] LABS: Potassium 3.8 mmol/L (3.5-5.1)
[2022-06-21 17:50] LABS: Partial Thromboplastin Time 28.9 sec (22.0-30.0); Prothrombin Time 10.3 sec (9.0-12.0)
--- NOTE | 2022-06-21 18:43 | XR ---
EXAMINATION TYPE: XR chest 2V DATE OF EXAM: 06/21/2022 COMPARISON: Chest x-ray June 13, 2018 HISTORY: Difficulty in breathing. TECHNIQUE: Frontal and lateral views of the chest are obtained. FINDINGS: There is no focal air space opacity, pleural effusion, or pneumothorax seen. The cardiac silhouette size is within normal limits. The osseous structures are intact. Heart size normal. Ther e is atherosclerotic change of the aorta. No overt failure. IMPRESSION: No acute cardiopulmonary process.
--- NOTE | 2022-06-21 19:04 | CT ---
EXAMINATION TYPE: CT angio thor/abd pel aorta DATE OF EXAM: 06/21/2022 COMPARISON: 07/24/2016 HISTORY: dyspnea, chest pain, h/o aneurysm CT DLP: 319 mGycm CONTRAST: CT chest with contrast and 3D reconstruction with MIP imaging is performed with IV Contrast, patient injected with 80 mL of Isovue 370. Contrast-enhanced CT of the chest and abdomen was performed through the course of the pulmonary arter ies with lung and mediastinal window settings submitted. 3D reconstruction with MIP imaging was also performed. PULMONARY ARTERIES: The pulmonary arteries and their major tributaries are patent. I do not see mattie dence for sizable filling defect to suggest pulmonary embolic process. LUNGS: Moderate emphysematous changes. The lungs are clear and free of infiltrate. No evidence for at electasis. No pulmonary nodule or mass is detected. No pleural effusion. MEDIASTINUM: Thoracic aorta is of normal caliber. The heart is not enlarged. No evidence for medias tinal mass. Nonspecific lymph nodes measuring up to 1.5 cm. HILAR STRUCTURES: No evidence for mass. No hilar lymph nodes greater than [address] abdomen: There is infrarenal abdominal aortic aneurysm with AP measurement of 4.6 cm. There is a m ural thrombus seen. No evidence for dissection. Liver spleen right kidney and pancreas are unremarkab le. Atrophic changes left kidney. Gastrointestinal tract unremarkable. Postoperative changes lumbar s pine. IMPRESSION: 1. No evidence for Pulmonary embolism at this time. 2. Infrarenal abdominal aortic aneurysm with mural thrombus.
[2022-06-21 19:44] VITALS: BP 148/88; PULSE 88
== END 2022-06-21 19:44 | disposition home or self-care (01) ==
LOC: EC 15:56
DX: J44.1 Chronic obstructive pulmonary disease with (acute) exacerbation (principal); I71.43 Infrarenal abdominal aortic aneurysm, without rupture; I10 Essential (primary) hypertension; E78.5 Hyperlipidemia, unspecified; F41.9 Anxiety disorder, unspecified; F17.200 Nicotine dependence, unspecified, uncomplicated; Z79.899 Other long term (current) drug therapy; Z88.0 Allergy status to penicillin; Z88.6 Allergy status to analgesic agent; Z88.2 Allergy status to sulfonamides; Z88.8 Allergy status to other drugs, medicaments and biological substances; Z88.1 Allergy status to other antibiotic agents; Z79.82 Long term (current) use of aspirin; Z20.822 Contact with and (suspected) exposure to COVID-19
CPT/HCPCS: 36415; 94640; 93005; 85379; 83880; 80053; 83605; 84484; 85025; 85610; 85730; 87636; 71046; 71275; 74174; 99285; 96374; J1170; Q9967

== ENCOUNTER → 2022-08-26 | Outpatient (CLI) | payer MEDICARE, OTHER | END | disposition home or self-care (01) | LOC: RADCTMAIN 11:20 | PROVIDERS: ATTEND Surgery | DX: Z53.9 Procedure and treatment not carried out, unspecified reason (principal) ==

== ENCOUNTER → 2022-08-26 | Outpatient (CLI) | payer MEDICARE, OTHER ==
[~2022-08-26] MED LIST changes: +SODIUM CHLORIDE 0.9% 1,000 ML IV NR; -SODIUM CHLORIDE 0.9% 1,000 ML in EMPTY BAG 1 BAG IV ONE; +SODIUM CHLORIDE 0.9% 500 ML 500 ML in EMPTY BAG 1 BAG IV PRN
[2022-08-26 12:00] VITALS: BP 140/88; PULSE 104; RESP 16; TEMP 98.2
[2022-08-26 14:01] LABS: African American GFR (CKD) 40 (>60 ml/min/1.73 sqM); Blood Urea Nitrogen 21 mg/dL (7-17); Non-African American GFR(CKD) 35 (>60 ml/min/1.73 sqM)
== END ==
LOC: PROCWHC3 11:31
PROVIDERS: ATTEND Surgery
DX: Z90.5 Acquired absence of kidney (principal)
CPT/HCPCS: 36415; 82565; 84520; 96360

== ENCOUNTER → 2022-12-14 | Outpatient (CLI) | payer MEDICARE, OTHER ==
--- NOTE | 2022-12-14 10:16 | MM ---
Reason for Exam: Clinical finding. Last mammogram was performed 1 year(s) and 1 month(s) ago. Indicated Problems: Lump or thickening. Patient History: Menarche at age 13. First Full-Term at age 19. Hysterectomy at age 38. Postmenopausal. Estrogen for 1 year from age 43 until age 44. Patient used Hormonal Contraceptives for 10 years. 2000, Benign Core Biopsy on the left side. Maternal aunt had breast cancer, age 60. Sister had breast cancer, age 54. Risk Values: Betty 5 year model risk: 3.3%. NCI Lifetime model risk: 15.0%. Tissue Density: There are scattered fibroglandular densities. Findings: Analyzed By CAD. Pattern appears symmetrical and stable. No suspicious groups of microcalcifications, spiculated or lobular masses, architectural distortion or other secondary signs of malignancy are mammographically apparent. A palpable abnormality is marked in the upper outer aspect left breast. No underlying mammographic abnormalities evident. Ultrasound can be performed for additional evaluation. Overall Assessment: Incomplete: need additional imaging evaluation, BI-RAD 0 Management: Diagnostic Breast Ultrasound of the left breast. A negative mammogram report should not preclude additional follow up of suspicious palpable abnormalities. Patient should continue monthly self breast exam. A clinical breast exam by your physician is recommended on an annual basis and results should be correlated with mammographic findings. Electronically signed and approved by: Lewis Jackson D.O. Radiologis
--- NOTE | 2022-12-14 10:33 | US ---
EXAM: Breast Ultrasound FINDINGS: Hyperechoic area at patient AOC = 0.963 x 0.485 x 0.988 cm. Ill-defined area slightly hyperechoic an d likely represents a small lipoma. No mammographic or ultrasound suspicious findings. Clinical manag ement is recommended. ASSESSMENT: 2 - Benign Left OVERALL ASSESSMENT: 2 - Benign RECOMMENDATION: 1. Screening Mammogram Bilateral in 1 Year COMMENTS: . Results were given to the patient verbally at the time of exam. Patient should continue monthly self-breast exams. A clinical breast exam by your physician is recom mended on an annual basis. This exam should not preclude additional follow-up of suspicious palpable abnormalities. Note on Betty scores and lifetime risk: 1. A Betty score greater than 3% is considered moderate risk. If this is the case, consider specialis t referral to assess eligibility for a risk reducing agent. 2. If overall lifetime risk for the development of breast cancer is 20% or higher, the patient may q ualify for future screening with alternating mammogram and breast MRI.
== END | disposition home or self-care (01) ==
LOC: RADMAMWWP 09:42
PROVIDERS: ATTEND Family Medicine
DX: R92.323 Mammographic fibroglandular density, bilateral breasts (principal); Z78.0 Asymptomatic menopausal state; Z80.3 Family history of malignant neoplasm of breast
CPT/HCPCS: 77066; 76642; G0279; 77062

== ENCOUNTER 2023-03-28 00:49 | Observation (INO) | payer MEDICARE, OTHER ==
[2023-03-28] MEDS: MORPHINE SULFATE 4 MG/ML SYRINGE IV STA (01:29)
--- NOTE | 2023-03-28 01:56 | XR ---
EXAMINATION TYPE: XR Hip RT and AP Pelvis DATE OF EXAM: 03/28/2023 COMPARISON: NONE HISTORY: Pelvic and right hip pain since Monday. TECHNIQUE: A single AP view of the pelvis is obtained. Two views of the right hip are obtained. FINDINGS: There is no acute fracture/dislocation evident in the pelvis. Mild axial joint space loss in the left hip. Sacroiliac joints are maintained. Pubic symphysis is intact. Surgical changes to the lumbar spine extends to the S1 level. Two views of right hip show no acute fracture or dislocation. Mild acetabular spurring of the right hip. No focal lytic or sclerotic lesion seen in the proximal right femur. Surgical clips right groin region are seen. IMPRESSION: As above.
[2023-03-28 02:01] LABS: Anisocytosis Slight; Basophils % (A) 0 %; Eosinophils # (A) 0.2 k/uL (0-0.7); Eosinophils % (A) 3 %; HCT 35.8 % (34.0-46.0); HGB 12.1 gm/dL (11.4-16.0); Lymphocytes # (A) 1.3 k/uL (1.0-4.8); Lymphocytes % (A) 17 %; MCH 28.1 pg (25.0-35.0); MCHC 33.9 g/dL (31.0-37.0); MCV 82.9 fL (80.0-100.0); Mean Platelet Volume 7.2; Monocytes # (A) 0.5 k/uL (0-1.0); Monocytes % (A) 7 %; Neutrophils # (A) 5.8 k/uL (1.3-7.7); Neutrophils % (A) 72 %; Platelet Count 230 k/uL (150-450); RBC 4.32 m/uL (3.80-5.40); RDW 16.4 % (11.5-15.5)
[2023-03-28 02:02] LABS: African American GFR (CKD) 40 (>60 ml/min/1.73 sqM); Anion Gap 4 mmol/L; Blood Urea Nitrogen 26 mg/dL (7-17); Calcium 8.5 mg/dL (8.4-10.2); Carbon Dioxide 25 mmol/L (22-30); Chloride 108 mmol/L (98-107); Creatine Kinase 82 U/L (30-135); Glucose 89 mg/dL (74-99); Non-African American GFR(CKD) 34 (>60 ml/min/1.73 sqM); Potassium 3.7 mmol/L (3.5-5.1); Sodium 137 mmol/L (137-145)
[2023-03-28] MEDS: ORPHENADRINE 30 MG/ML 2 ML VIAL IVP STA (02:39)
[2023-03-28] MEDS: HYDROmorphone 0.5 MG/0.5 ML SYRINGE IVP STA (04:17)
[2023-03-28] MEDS ORDERED: NALOXONE 0.4 MG/ML 1 ML VIAL IV PRN (05:03)
[2023-03-28] MEDS ORDERED: ALBUTEROL NEBULIZED 2.5 MG/3 ML INHALATION PRN (05:06)
--- NOTE | 2023-03-28 07:28 | P.HPIM ---
History of Present Illness This is a pleasant 62 years old female with multiple medical problems Presents because of right hip pain which started last Monday about 2 days prior to hospitalization. On Monday she was able to walk and do shopping but since Monday she has difficulty walking because of her right hip pain Patient says she has history of bilateral hip pain for about 20 years and she still have mild pain on the left side about the right side got really more severe over the last 2 days with no history of trauma or falling She denies any other specific symptoms. No chest pain or dyspnea. No headache or dizziness or weakness or numbness. No change in urine or bowel habits. No fever. She smokes about 1 pack per day and she was counseled and she agrees to quit. No alcohol or illicit drugs. Vitals are stable, blood pressure is slightly elevated at 180/88. She is unremarkable Creatinine at baseline of 1.6 as patient has chronic kidney disease stage III. Hip x-ray and pelvic x-ray showing no acute fracture or dislocation. Patient currently on IV morphine and Percocet with orthopedic consult. She is also on aspirin 81 mg at home. Review of Systems Review of systems CONSTITUTIONAL: No fever, no malaise, no fatigue. HEENT: No recent visual problems or hearing problems. Denied any sore throat. CARDIOVASCULAR: No orthopnea, PND, no palpitations, no syncope. PULMONARY: No shortness of breath, no cough, no hemoptysis. GASTROINTESTINAL: No diarrhea, no nausea, no vomiting, no abdominal pain. Normoactive bowel sounds. NEUROLOGICAL: No headaches, no weakness, no numbness. HEMATOLOGICAL: Denies any bleeding or petechiae. GENITOURINARY: Denies any burning micturition, frequency, or urgency. MUSCULOSKELETAL/RHEUMATOLOGICAL: Denies any joint pain, swelling, or any muscle pain. ENDOCRINE: Denies any polyuria or polydipsia. 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, decreased kidney function History of Any Multi-Drug Resistant Organisms: None Reported Past Surgical History: Back Surgery, Cholecystectomy, Hysterectomy, Orthopedic Surgery Additional Past Surgical History / Comment(s): right carotid endarterectomy, neck and back sx, rt thumb sx for trigger thumb, right fem pop bypass Past Anesthesia/Blood Transfusion Reactions: No Reported Reaction Past Psychological History: Anxiety Smoking Status: Current every day smoker Past Alcohol Use History: None Reported Past Drug Use History: None Reported - Past Family History Mother Family Medical History: Hyperlipidemia, Hypertension Sister(s) Family Medical History: Diabetes Mellitus Father Family Medical History: Hyperlipidemia Additional Family Medical History / Comment(s): On heart meds. Blocked arteries Medications and Allergies Home Medications Medication Instructions Recorded Confirmed Type Fenofibrate 160 mg PO DAILY 03/07/15 11/19/21 History oxyCODONE-APAP 10-325MG [Percocet 1 tab PO BID PRN 03/07/15 11/19/21 History 10-325 mg] Aspirin EC [Ecotrin Low Dose] 81 mg PO DAILY 02/12/17 11/19/21 History Atorvastatin [Lipitor] 80 mg PO HS 02/12/17 11/19/21 History Losartan [Cozaar] 25 mg PO DAILY 02/12/17 11/19/21 History Desvenlafaxine [Desvenlafaxine ER] 100 mg PO DAILY 06/29/18 11/19/21 History Isosorbide Mononitrate ER [Imdur] 60 mg PO DAILY 06/29/18 11/19/21 History Calcium Carbonate [Calcium] 500 mg PO DAILY 11/19/21 11/19/21 History Ferrous Sulfate [Iron (65 MG 325 mg PO DAILY 11/19/21 11/19/21 History Elemental)] Metoprolol Succinate [Metoprolol 25 mg PO DAILY 11/19/21 11/19/21 History Succinate ER] Potassium Chloride [Potassium 10 meq PO DAILY 11/19/21 11/19/21 History Chloride ER (K-Dur GEQ)] Riboflavin (Vitamin B2) [Vitamin 50,000 mg PO Q14D 11/19/21 11/19/21 History B-2] Umeclidinium Brm/Vilanterol Tr 1 puff INHALATION DAILY 11/19/21 11/19/21 History [Anoro Ellipta 62.5-25 Mcg INH] amLODIPine [Norvasc] 5 mg PO HS 11/19/21 11/19/21 History Albuterol Inhaler [Ventolin Hfa 1 - 2 puff INHALATION Q6HR PRN #1 06/21/22 Rx Inhaler] each Azithromycin [Zithromax] 0 mg PO DIRECTED #6 tab 06/21/22 Rx Inhaler, Assist Devices 1 device MISCELLANE DIRECTED #1 06/21/22 Rx [Aerochamber Mv] each predniSONE 60 mg PO DAILY #30 tab 06/21/22 Rx Allergies Allergy/AdvReac Type Severity Reaction Status Date / Time amoxicillin Allergy Itching Verified 08/26/22 11:50 diazepam [From Valium] Allergy Hallucinati Verified 08/26/22 11:50 ons erythromycin base Allergy Nausea & Verified 08/26/22 11:50 Vomiting sulfamethoxazole Allergy Rash/Hives Verified 08/26/22 11:50 [From Bactrim] trimethoprim [From Bactrim] Allergy Rash/Hives Verified 08/26/22 11:50 ANDREEA Inhibitors AdvReac Cough Verified 08/26/22 11:50 STEROIDS AdvReac EYE Uncoded 08/26/22 11:50 PROBLEMS Physical Exam Vitals: Vital Signs Temp Pulse Resp BP Pulse Ox 03/28/23 05:09 85 18 185/88 96 03/28/23 02:44 85 20 165/100 95 03/28/23 00:52 97.5 F L 83 18 151/92 99 Intake and Output 03/27/23 03/28/23 03/28/23 22:59 06:59 14:59 Other: Weight 54.431 kg GENERAL: The patient is alert and oriented x3, not in any acute distress. Well developed, well nourished. HEENT: Pupils are round and equally reacting to light. EOMI. No scleral icterus. No conjunctival pallor. Normocephalic, atraumatic. No pharyngeal erythema. No thyromegaly. CARDIOVASCULAR: S1 and S2 present. No murmurs, rubs, or gallops. PULMONARY: Chest is clear to auscultation, no wheezing , no crackles. ABDOMEN: Soft, nontender, nondistended, normoactive bowel sounds. No palpable organomegaly. -MUSCULOSKELETAL: No joint swelling or deformity. Mild right hip tenderness, especially in the groin. Limited range of movement because of pain. No weakness EXTREMITIES: No cyanosis, clubbing, or pedal edema. NEUROLOGICAL: Gross neurological examination did not reveal any focal deficits. SKIN: No rashes. no petechiae. Results CBC & Chem 7: 03/28/23 01:36 03/28/23 01:36 Labs: Abnormal Lab Results - Last 24 Hours (Table) 03/28/23 03/28/23 Range/Units 01:36 01:36 RDW 16.4 H (11.5-15.5) % Chloride 108 H (98-107) mmol/L BUN 26 H (7-17) mg/dL Creatinine 1.61 H (0.52-1.04) mg/dL Assessment and Plan Assessment: Severe right hip pain, acute on chronic most likely related to acute oste oarthritis -Nicotine dependence Hypertension, uncontrolled The chronic kidney disease stage III. Plan: Continue with pain medication Orthopedic team consult Continue with the same antihypertensive medication losartan 25 mg, metoprolol 25% with increase Norvasc to 10 mg Orthopedic consult Physical therapy once cleared by orthopedic Labs and medication were reviewed.. Continue same treatment. Continue with symptomatic treatment. Resume home medication. Monitor labs and vitals. DVT and GI prophylaxis. Further recommendations as per clinical course of the patie nt DVT prophylaxis: Subcutaneous heparin GI Prophylaxis: Pepcid PT/OT: Pending Prognosis is guarded
[2023-03-28] MEDS: FORMOTEROL FUMARATE 20 MCG/2 ML NEBU INHALATION SCH (08:05)
[2023-03-28] MEDS: IPRATROPIUM 0.5 MG/2.5 ML NEBU INHALATION SCH (08:17)
--- NOTE | 2023-03-28 08:44 | ED ---
General Adult HPI - General Chief complaint: Back Pain/Injury Stated complaint: back hip pain Time Seen by Provider: 03/28/23 00:52 Source: EMS Mode of arrival: EMS - History of Present Illness Initial comments: This patient is a 62-year-old woman who presents to have evaluation of right hip pain. The patient states that it come on over the course of yesterday evening. She describes as a sharp pain with spasms. She does note that she had done more activity than is usual for her. She had gone shopping and spent a number of hours out at the store which was more than she usually does. Patient states that the pain is mild to moderate but anytime she attempts to move her hip she gets a sharp spasm that will last for a number of minutes. She did try a muscle relaxant at home without having much relief. She denies weakness or numbness of the leg. -: hour(s) Location: right, lower extremity Radiation: non-radiation Consistency: constant Improves with: none Worsens with: movement Associated Symptoms: denies other symptoms Treatments Prior to Arrival: none - Related Data Home Medications Medication Instructions Recorded Confirmed Fenofibrate 160 mg PO DAILY 03/07/15 11/19/21 oxyCODONE-APAP 10-325MG [Percocet 1 tab PO BID PRN 03/07/15 11/19/21 10-325 mg] Aspirin EC [Ecotrin Low Dose] 81 mg PO DAILY 02/12/17 11/19/21 Atorvastatin [Lipitor] 80 mg PO HS 02/12/17 11/19/21 Losartan [Cozaar] 25 mg PO DAILY 02/12/17 11/19/21 Desvenlafaxine [Desvenlafaxine ER] 100 mg PO DAILY 06/29/18 11/19/21 Isosorbide Mononitrate ER [Imdur] 60 mg PO DAILY 06/29/18 11/19/21 Calcium Carbonate [Calcium] 500 mg PO DAILY 11/19/21 11/19/21 Ferrous Sulfate [Iron (65 MG 325 mg PO DAILY 11/19/21 11/19/21 Elemental)] Metoprolol Succinate [Metoprolol 25 mg PO DAILY 11/19/21 11/19/21 Succinate ER] Potassium Chloride [Potassium 10 meq PO DAILY 11/19/21 11/19/21 Chloride ER (K-Dur GEQ)] Riboflavin (Vitamin B2) [Vitamin 50,000 mg PO Q14D 11/19/21 11/19/21 B-2] Umeclidinium Brm/Vilanterol Tr 1 puff INHALATION DAILY 11/19/21 11/19/21 [Anoro Ellipta 62.5-25 Mcg INH] amLODIPine [Norvasc] 5 mg PO HS 11/19/21 11/19/21 Previous Rx's Medication Instructions Recorded Albuterol Inhaler [Ventolin Hfa 1 - 2 puff INHALATION Q6HR PRN #1 06/21/22 Inhaler] each Azithromycin [Zithromax] 0 mg PO DIRECTED #6 tab 06/21/22 Inhaler, Assist Devices 1 device MISCELLANE DIRECTED #1 06/21/22 [Aerochamber Mv] each predniSONE 60 mg PO DAILY #30 tab 06/21/22 Allergies Allergy/AdvReac Type Severity Reaction Status Date / Time amoxicillin Allergy Itching Verified 08/26/22 11:50 diazepam [From Valium] Allergy Hallucinati Verified 08/26/22 11:50 ons erythromycin base Allergy Nausea & Verified 08/26/22 11:50 Vomiting sulfamethoxazole Allergy Rash/Hives Verified 08/26/22 11:50 [From Bactrim] trimethoprim [From Bactrim] Allergy Rash/Hives Verified 08/26/22 11:50 ANDREEA Inhibitors AdvReac Cough Verified 08/26/22 11:50 STEROIDS AdvReac EYE Uncoded 08/26/22 11:50 PROBLEMS Review of Systems ROS Statement: Those systems with pertinent positive or pertinent negative responses have been documented in the HPI. ROS Other: All systems not noted in ROS Statement are negative. Constitutional: Denies: fever, chills, weakness Respiratory: Denies: cough, dyspnea Cardiovascular: Denies: chest pain, palpitations Gastrointestinal: Denies: abdominal pain, nausea, vomiting Genitourinary: Denies: dysuria, hematuria Musculoskeletal: Reports: as per HPI, myalgia. 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, decreased kidney function History of Any Multi-Drug Resistant Organisms: None Reported Past Surgical History: Back Surgery, Cholecystectomy, Hysterectomy, Orthopedic Surgery Additional Past Surgical History / Comment(s): right carotid endarterectomy, neck and back sx, rt thumb sx for trigger thumb, right fem pop bypass Past Anesthesia/Blood Transfusion Reactions: No Reported Reaction Past Psychological History: Anxiety Smoking Status: Current every day smoker Past Alcohol Use History: None Reported Past Drug Use History: None Reported - Past Family History Mother Family Medical History: Hyperlipidemia, Hypertension Sister(s) Family Medical History: Diabetes Mellitus Father Family Medical History: Hyperlipidemia Additional Family Medical History / Comment(s): On heart meds. Blocked arteries General Exam General appearance: alert, in no apparent distress Head exam: Present: atraumatic, normocephalic Eye exam: Present: normal appearance. Absent: scleral icterus, conjunctival injection ENT exam: Present: normal oropharynx Neck exam: Present: normal inspection Respiratory exam: Present: normal lung sounds bilaterally. Absent: respiratory distress, wheezes, rales, rhonchi, stridor Cardiovascular Exam: Present: regular rate, normal rhythm, normal heart sounds. Absent: systolic murmur, diastolic murmur, rubs, gallop GI/Abdominal exam: Present: soft. Absent: distended, tenderness, guarding, rebound, rigid, mass Extremities exam: Present: normal inspection, tenderness, normal capillary refill. Absent: full ROM Back exam: Present: normal inspection. Absent: CVA tenderness (R), CVA tenderness (L), vertebral tenderness Neurological exam: Present: alert. Absent: motor sensory deficit Skin exam: Present: warm, dry, intact, normal color. Absent: rash Course Vital Signs 03/28/23 03/28/23 03/28/23 00:52 02:44 05:09 Temperature 97.5 F L Pulse Rate 83 85 85 Respiratory 18 20 18 Rate Blood Pressure 151/92 165/100 185/88 O2 Sat by Pulse 99 95 96 Oximetry 03/28/23 03/28/23 08:17 08:25 Temperature Pulse Rate 73 75 Respiratory Rate Blood Pressure O2 Sat by Pulse Oximetry Medical Decision Making - Medical Decision Making Patient is 62-year-old woman here with pains in the right hip and groin. There was no trauma. The patient did have x-ray of the right hip and the pelvis which does not reveal evidence of fracture or dislocation. The patient did receive multiple rounds of analgesia and she did have some relief of symptoms but when we attempted to get the patient ambulates she is not able to bear weight. She states she gets spasms in the hip when she attempts to stand or walk. In light of this patient be admitted for intractable pain. Patient had x-ray of the right hip that I interpreted as negative for fracture or dislocation. Was pt. sent in by a medical professional or institution (, [facility], [facility], urgent care, hospital, or jail...) When possible be specific @ -[No] Did you speak to anyone other than the patient for history (EMS, parent, family, police, friend...)? What history was obtained from this source @ -[The patient's daughter contributed to history Did you review nursing and triage notes (agree or disagree)? Why? @ -[I reviewed and agree with nursing and triage notes] Were old charts reviewed (outside hosp., previous admission, EMS record, old EKG, old radiological studies, urgent care reports/EKG's, jail records)? Report findings @ -[No old charts were reviewed] Differential Diagnosis (chest pain, altered mental status, abdominal pain women, abdominal pain men, vaginal bleeding, weakness, fever, dyspnea, syncope, headache, dizziness, GI bleed, back pain, seizure, CVA, palpatations, mental health, musculoskeletal)? @ -[Differential Musculoskeletal Muscular strain, contusion, ligament sprain, fracture, arthritis, septic arthritis, bursitis, cellulitis, muscle spasm, nerve compression, DVT, arterial occlusion, herpes zoster, electrolyte abnormality, tumor.... This is not meant to be in all inclusive list EKG interpreted by me (3pts min.). @ -[As above] X-rays interpreted by me (1pt min.). @ -[I interpreted as above CT interpreted by me (1pt min.). @ -[None done] U/S interpreted by me (1pt. min.). @ -[None done] What testing was considered but not performed or refused? (CT, X-rays, U/S, labs)? Why? @ -[None] What meds were considered but not given or refused? Why? @ -[None] Did you discuss the management of the patient with other professionals (professionals i.e. , [facility], [facility], lab, RT, psych nurse, perinatal social worker, roll repairer, teacher, public records officer, briefcase sewer)? Give summary @ -[No] Was smoking cessation discussed for >3mins.? @ -[No] Was critical care preformed (if so, how long)? @ -[No] Were there social determinants of health that impacted care today? How? (Homelessness, low income, unemployed, alcoholism, drug addiction, transportation, low edu. Level, literacy, decrease access to med. care, usp, rehab)? @ -[No] Was there de-escalation of care discussed even if they declined (Discuss DNR or withdrawal of care, Hospice)? DNR status @ -[No] What co-morbidities impacted this encounter? (DM, HTN, Smoking, COPD, CAD, Cancer, CVA, ARF, Chemo, Hep., AIDS, mental health diagnosis, sleep apnea, morbid obesity)? @ -[None] Was patient admitted / discharged? Hospital course, mention meds given and route, prescriptions, significant lab abnormalities, going to OR and other pertinent info. @ -[See the note above, patient admitted for intractable pain and inability to bear weight. Undiagnosed new problem with uncertain prognosis? @ -[No] Drug Therapy requiring intensive monitoring for toxicity (Heparin, Nitro, Insulin, Cardizem)? @ -[No] Were any procedures done? @ -[No] Diagnosis/symptom? @ -[Intractable right hip pain Acute, or Chronic, or Acute on Chronic? @ -[Acute Uncomplicated (without systemic symptoms) or Complicated (systemic symptoms)? @ -[Uncomplicated Side effects of treatment? @ -[No] Exacerbation, Progression, or Severe Exacerbation? @ -[No] Poses a threat to life or bodily function? How? (Chest pain, [place], AL, pneumonia, PE, COPD, DKA, ARF, appy, cholecystitis, CVA, Diverticulitis, Homicidal, Suicidal, threat to staff... and all critical care pts) @ -[No] - Lab Data Result diagrams: 03/28/23 01:36 03/28/23 01:36 Lab Results 03/28/23 03/28/23 03/28/23 Range/Units 01:36 01:36 01:36 WBC 8.0 (3.8-10.6) k/uL RBC 4.32 (3.80-5.40) m/uL Hgb 12.1 (11.4-16.0) gm/dL Hct 35.8 (34.0-46.0) % MCV 82.9 (80.0-100.0) fL MCH 28.1 (25.0-35.0) pg MCHC 33.9 (31.0-37.0) g/dL RDW 16.4 H (11.5-15.5) % Plt Count 230 (150-450) k/uL MPV 7.2 Neutrophils % 72 % Lymphocytes % 17 % Monocytes % 7 % Eosinophils % 3 % Basophils % 0 % Neutrophils # 5.8 (1.3-7.7) k/uL Lymphocytes # 1.3 (1.0-4.8) k/uL Monocytes # 0.5 (0-1.0) k/uL Eosinophils # 0.2 (0-0.7) k/uL Basophils # 0.0 (0-0.2) k/uL Anisocytosis Slight Sodium 137 (137-145) mmol/L Potassium 3.7 (3.5-5.1) mmol/L Chloride 108 H (98-107) mmol/L Carbon Dioxide 25 (22-30) mmol/L Anion Gap 4 mmol/L BUN 26 H (7-17) mg/dL Creatinine 1.61 H (0.52-1.04) mg/dL Est GFR (CKD-EPI)AfAm 40 (>60 ml/min/1.73 sqM) Est GFR (CKD-EPI)NonAf 34 (>60 ml/min/1.73 sqM) Glucose 89 (74-99) mg/dL Plasma Lactic Acid Dayday 1.2 (0.7-2.0) mmol/L Calcium 8.5 (8.4-10.2) mg/dL Creatine Kinase 82 (30-135) U/L CK-MB (CK-2) (0.0-3.4) ng/mL 03/28/23 Range/Units 01:36 WBC (3.8-10.6) k/uL RBC (3.80-5.40) m/uL Hgb (11.4-16.0) gm/dL Hct (34.0-46.0) % MCV (80.0-100.0) fL MCH (25.0-35.0) pg MCHC (31.0-37.0) g/dL RDW (11.5-15.5) % Plt Count (150-450) k/uL MPV Neutrophils % % Lymphocytes % % Monocytes % % Eosinophils % % Basophils % % Neutrophils # (1.3-7.7) k/uL Lymphocytes # (1.0-4.8) k/uL Monocytes # (0-1.0) k/uL Eosinophils # (0-0.7) k/uL Basophils # (0-0.2) k/uL Anisocytosis Sodium (137-145) mmol/L Potassium (3.5-5.1) mmol/L Chloride (98-107) mmol/L Carbon Dioxide (22-30) mmol/L Anion Gap mmol/L BUN (7-17) mg/dL Creatinine (0.52-1.04) mg/dL Est GFR (CKD-EPI)AfAm (>60 ml/min/1.73 sqM) Est GFR (CKD-EPI)NonAf (>60 ml/min/1.73 sqM) Glucose (74-99) mg/dL Plasma Lactic Acid Dayday (0.7-2.0) mmol/L Calcium (8.4-10.2) mg/dL Creatine Kinase (30-135) U/L CK-MB (CK-2) 2.2 (0.0-3.4) ng/mL Disposition Clinical Impression: Intractable pain, Inability to ambulate due to hip Disposition: ADMITTED IP TO THIS [facility] Condition: Fair Is patient prescribed a controlled substance at d/c from ED?: No
[2023-03-28] MEDS: LOSARTAN 25 MG TAB PO SCH (09:27)
[2023-03-28] MEDS: METOPROLOL SUCCINATE (ER) 25 MG TAB.ER.24H PO SCH (09:28)
[2023-03-28] MEDS: ASPIRIN 81 MG PO SCH (09:28)
[2023-03-28] MEDS: DESVENLAFAXINE SUCCINATE 50 MG TAB.ER.24H PO SCH (09:28)
[2023-03-28] MEDS: ISOSORBIDE MONONITRATE ER 60 MG TAB.ER.24H PO SCH (09:28)
[2023-03-28] MEDS: oxyCODONE-APAP 10-325MG 1 EACH TAB PO PRN (09:29)
[2023-03-28] MEDS: FAMOTIDINE 20 MG/2 ML VIAL IV SCH (09:29)
[2023-03-28] MEDS: HEPARIN SODIUM,PORCINE 5,000 UNIT/ML 1 ML VIAL SQ SCH (09:29)
--- NOTE | 2023-03-28 14:22 | P.CNOR ---
History of Present Illness - [facility] Consult date: 03/28/23 Consult reason: joint pain (Right hip pain) History of present illness: The patient is a 62-year-old woman who presented to the emergency department at [facility] with severe right hip pain. She states the pain started on Monday after shopping on Monday and walking more than usual. She states the pain is worse over the side of the hip and the right buttock. The pain does radiate into the right groin as well. No numbness or tingling in the leg. The leg is weak due to the pain according to the patient. She is post L4-L5 and L5- S1 fusion with Dr. Benito on 07/04/2018 and states her back is feeling well. She has had this hip pain bilaterally before but not this severe in the past. The patient does take Percocet at home on a regular basis. Orthopedics was consulted for further evaluation and care. 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, decreased kidney function History of Any Multi-Drug Resistant Organisms: None Reported Past Surgical History: Back Surgery, Cholecystectomy, Hysterectomy, Orthopedic Surgery Additional Past Surgical History / Comment(s): right carotid endarterectomy, neck and back sx, rt thumb sx for trigger thumb, right fem pop bypass Past Anesthesia/Blood Transfusion Reactions: No Reported Reaction Past Psychological History: Anxiety Smoking Status: Current every day smoker Past Alcohol Use History: None Reported Past Drug Use History: None Reported - Past Family History Mother Family Medical History: Hyperlipidemia, Hypertension Sister(s) Family Medical History: Diabetes Mellitus Father Family Medical History: Hyperlipidemia Additional Family Medical History / Comment(s): On heart meds. Blocked arteries Medications and Allergies Home Medications Medication Instructions Recorded Confirmed Type oxyCODONE-APAP 10-325MG [Percocet 1 tab PO BID 03/07/15 03/28/23 History 10-325 mg] Aspirin EC [Ecotrin Low Dose] 81 mg PO DAILY 02/12/17 03/28/23 History Calcium Carbonate [Calcium] 600 mg PO DAILY 11/19/21 03/28/23 History Ferrous Sulfate [Iron (65 MG 325 mg PO DAILY 11/19/21 03/28/23 History Elemental)] Metoprolol Succinate [Metoprolol 25 mg PO DAILY 11/19/21 03/28/23 History Succinate ER] Umeclidinium Brm/Vilanterol Tr 1 puff INHALATION RT-DAILY 11/19/21 03/28/23 History [Anoro Ellipta 62.5-25 Mcg INH] Albuterol Inhaler [Ventolin Hfa 1 - 2 puff INHALATION RT-Q6H PRN 03/28/2308/13 History Inhaler] Atorvastatin Calcium [Lipitor] 80 mg PO HS 03/28/23 03/28/23 History Clopidogrel [Plavix] 75 mg PO DAILY 03/28/23 03/28/23 History Desvenlafaxine [Pristiq ER] 100 mg PO DAILY 03/28/23 03/28/23 History Ergocalciferol [Vitamin D2 (1250 1,250 mcg PO Q14D 03/28/23 03/28/23 History Mcg = 68080 Iu)] Isosorbide Mononitrate ER [Imdur] 60 mg PO DAILY 03/28/23 03/28/23 History Losartan [Cozaar] 50 mg PO DAILY 03/28/23 03/28/23 History Magnesium Oxide [Mag-Ox] 400 mg PO DAILY 03/28/23 03/28/23 History Nitroglycerin Sl Tabs [Nitrostat] 0.4 mg SUBLINGUAL Q5M PRN 03/28/23 03/28/23 History amLODIPine [Norvasc] 10 mg PO DAILY 03/28/23 03/28/23 History Allergies Allergy/AdvReac Type Severity Reaction Status Date / Time amoxicillin Allergy Itching Verified 03/28/23 09:24 sulfamethoxazole Allergy Rash/Hives Verified 03/28/23 09:24 [From Bactrim] trimethoprim [From Bactrim] Allergy Rash/Hives Verified 03/28/23 09:24 ANDREEA Inhibitors AdvReac Cough Verified 03/28/23 09:24 diazepam [From Valium] AdvReac Hallucinati Verified 03/28/23 09:24 ons erythromycin base AdvReac Nausea & Verified 03/28/23 09:24 Vomiting STEROIDS AdvReac EYE Uncoded 03/28/23 09:24 PROBLEMS Physical Examination The patient is a 62 y/o female in acute distress. She is alert and oriented x3. Exam of the right hip reveals pain to palpation directly over the greater trochanter. There is mild muscular pain to the right buttock. External and internal rotation of the hip joint is now without significant pain. Straight leg raise is negative. No knee pain. Calf is soft and non-tender. Good foot and ankle motion without weakness, Good EHL function. Neurological and circul atory status is intact. Results X-ray of the right hip reveals mild osteoarthritis. No acute fractures seen. - Labs Labs: Abnormal Lab Results - Last 24 Hours (Table) 03/28/23 03/28/23 Range/Units 01:36 01:36 RDW 16.4 H (11.5-15.5) % Chloride 108 H (98-107) mmol/L BUN 26 H (7-17) mg/dL Creatinine 1.61 H (0.52-1.04) mg/dL H & H 03/28/23 Range/Units 01:36 Hgb 12.1 (11.4-16.0) gm/dL Hct 35.8 (34.0-46.0) % Result Diagrams: 03/28/23 01:36 03/28/23 01:36 Assessment and Plan (1) Greater trochanteric bursitis of right hip Current Visit: Yes Status: Acute Code(s): M70.61 - TROCHANTERIC BURSITIS, RIGHT HIP SNOMED Code(s): 6010445 (2) Inability to ambulate due to hip Current Visit: Yes Status: Acute Code(s): R26.2 - DIFFICULTY IN WALKING, NOT ELSEWHERE CLASSIFIED SNOMED Code(s): 667805053 (3) Osteoarthritis of right hip Current Visit: Yes Status: Acute Code(s): M16.11 - UNILATERAL PRIMARY OSTEOARTHRITIS, RIGHT HIP SNOMED Code(s): 218079495642827 Plan: The clinical and x-ray findings were discussed with the patient. The case was discussed with Dr. Kang. The patient will continue pain control as needed. She was encouraged to use either ice and/or heat to the hip and anti-inflammatories if ok with internal medicine. PT and OT have been consulted. We will continue to follow her.
[2023-03-28] MEDS: MORPHINE SULFATE 4 MG/ML SYRINGE IV PRN (20:40)
[2023-03-28] MEDS: ATORVASTATIN 80 MG TAB PO SCH (20:40)
[2023-03-28] MEDS: amLODIPine 5 MG TAB PO SCH (20:40)
[2023-03-29] MEDS: FAMOTIDINE 20 MG TAB PO SCH (08:23)
--- NOTE | 2023-03-29 10:21 | P.PN ---
Subjective Progress Note Date: 03/29/23 Principal diagnosis: Right hip pain The patient is a 62-year-old woman who presented to the emergency department at [facility] with severe right hip pain. She states the pain started on Monday after shopping on Monday and walking more than usual. She states the pain is worse over the side of the hip and the right buttock. The pain does radiate into the right groin as well. No numbness or tingling in the leg. The leg is weak due to the pain according to the patient. She is post L4-L5 and L5- S1 fusion with Dr. Benito on 07/04/2018 and states her back is feeling well. She has had this hip pain bilaterally before but not this severe in the past. The patient does take Percocet at home on a regular basis. Orthopedics was consulted for further evaluation and care. Today, she states the hip is feeling better. She is currently working with PT this morning. No new complaints. Objective - Vital Signs Vital signs: Vital Signs Temp 98.5 F 03/29/23 07:59 Pulse 80 03/29/23 08:02 Resp 18 03/29/23 07:59 BP 185/73 03/29/23 07:59 Pulse Ox 91 L 03/29/23 07:59 FiO2 Intake & Output 03/28/23 03/29/23 03/29/23 18:59 06:59 18:59 Other: Voiding Method Bedside Commode # Voids 3 - Exam The patient is a 62 y/o female in acute distress. She is alert and oriented x3. Exam of the right hip reveals pain to palpation directly over the greater trochanter. There is mild muscular pain to the right buttock. External and internal rotation of the hip joint is now without significant pain. Straight leg raise is negative. No knee pain. Calf is soft and non-tender. Good foot and ankle motion without weakness, Good EHL function. Neurological and circulatory status is intact. - Labs CBC & Chem 7: 03/28/23 01:36 03/28/23 01:36 Assessment and Plan (1) Greater trochanteric bursitis of right hip Current Visit: Yes Status: Acute Code(s): M70.61 - TROCHANTERIC BURSITIS, RIGHT HIP SNOMED Code(s): 8722976 (2) Inability to ambulate due to hip Current Visit: Yes Status: Acute Code(s): R26.2 - DIFFICULTY IN WALKING, NOT ELSEWHERE CLASSIFIED SNOMED Code(s): 776074658 (3) Osteoarthritis of right hip Current Visit: Yes Status: Acute Code(s): M16.11 - UNILATERAL PRIMARY OSTEOARTHRITIS, RIGHT HIP SNOMED Code(s): 043900310056691 Plan: The clinical and x-ray findings were discussed with the patient. The case was discussed with Dr. Kang. The patient will continue pain control as needed. She was encouraged to use either ice and/or heat to the hip and anti-inflammatories if ok with internal medicine. PT and OT have been consulted. Her pain seems to be improving. We will sign off at this time.
[2023-03-29 11:26] LABS: BUN/Creat Ratio 12.07 Ratio (12.00-20.00); Blood Urea Nitrogen 18.1 mg/dL (9.0-27.0); Calcium 8.7 mg/dL (8.7-10.3); Carbon Dioxide 23.9 mmol/L (21.6-31.8); Chloride 103 mmol/L (96-109); Glucose 83 mg/dL (70-110); Potassium 3.7 mmol/L (3.5-5.5); Sodium 139 mmol/L (135-145)
[2023-03-29] MEDS: amLODIPine 5 MG TAB PO STA (12:29)
[2023-03-29] MEDS: LOSARTAN 25 MG TAB PO STA (12:30)
[2023-03-29 13:14] VITALS: BP 145/81; PULSE 84; RESP 19; TEMP 98.4
[2023-03-29] MEDS ORDERED: amLODIPine 10 MG TAB PO SCH (21:00)
--- NOTE | 2023-03-29 22:01 | P.DS ---
Providers Date of admission: 03/28/23 05:06 Attending physician: Eleazar Norris Consults: 03/28/23 05:03 Consult Physician Routine Consulting Provider: Liseth Kang Reason/Comments: right hip pain Do you want consulting provider notified?: Yes Primary care physician: Fredy Pope [facility] Course: Diagnoses: - Severe right hip pain, acute on chronic most likely related to acute osteoarthritis and Greater trochanteric bursitis of right hip, improved - Nicotine dependence - Hypertension, uncontrolled - chronic kidney disease stage III. History of one kidney Hospital course: This is a pleasant 62 years old female with multiple medical problems Presents because of right hip pain which started last Monday about 2 days prior to hospitalization. On Monday she was able to walk and do shopping but since Monday she has difficulty walking because of her right hip pain. Patient admitted to the hospital and evaluated by orthopedic team. Patient is found to have severe osteoarthritis of the right hip and right hip greater trochanteric bursitis. Orthopedic team recommended no surgical intervention and treatment medically. Patient pain improved with pain medication. We will at that by physical therapist and recommended home with home health care. Today patient is pleasant, she can move them up in her bed with no difficulty, her movements are limited to some degree bar pain in the right hip but flexion and getting out of bed that is possible. No weakness in the right lower extremity. Patient reports improvement and she agrees she can go home. Also patient can't walk with help Patient denies any other new complaints Patient was cleared for discharge by orthopedic team Problems and management plan were discussed with the patient and he verbalized understanding and acceptance Patient was found stable and can be discharged home in guarded prognosis however he needs follow-up as an outpatient. Patient was instructed to follow up with PCP Dr. Pope within one week and patient agrees He was instructed to follow up with orthopedic Dr. Roblero 2 weeks after discharge and she agrees to call and make her on appointments Physical exam Gen: patient is a AAOx3, no distress CVS: S1-S2, RRR, no murmur Lungs: B/L CTA, no wheezing Abdomen: soft, no distention, no tenderness, positive bowel sounds Extremity: no leg edema or induration neuro: Cranial nerves are grossly intact. No weakness or numbness or loss of sensation. Strength is 5/5 in all extremities. Time spent more than 35 minutes Patient Condition at Discharge: Fair Plan - Discharge Summary Discharge Rx Participant: Yes New Discharge Prescriptions: New amLODIPine [Norvasc] 5 mg PO HS #30 tab Continue Aspirin EC [Ecotrin Low Dose] 81 mg PO DAILY Nitroglycerin Sl Tabs [Nitrostat] 0.4 mg SUBLINGUAL Q5M PRN PRN Reason: Chest Pain Clopidogrel [Plavix] 75 mg PO DAILY Losartan [Cozaar] 50 mg PO DAILY Isosorbide Mononitrate ER [Imdur] 60 mg PO DAILY Atorvastatin Calcium [Lipitor] 80 mg PO HS Umeclidinium Brm/Vilanterol Tr [Anoro Ellipta 62.5-25 Mcg INH] 1 puff INH ALATION RT-DAILY Calcium Carbonate [Calcium] 600 mg PO DAILY Ferrous Sulfate [Iron (65 MG Elemental)] 325 mg PO DAILY Metoprolol Succinate [Metoprolol Succinate ER] 25 mg PO DAILY Albuterol Inhaler [Ventolin Hfa Inhaler] 1 - 2 puff INHALATION RT-Q6H PRN PRN Reason: Shortness Of Breath Magnesium Oxide [Mag-Ox] 400 mg PO DAILY Ergocalciferol [Vitamin D2 (1250 Mcg = 84105 Iu)] 1,250 mcg PO Q14D Desvenlafaxine [Pristiq ER] 100 mg PO DAILY Changed oxyCODONE-APAP 10-325MG [Percocet 10-325 mg] 1 tab PO QID PRN 3 Days #12 tab PRN Reason: Pain Discontinued amLODIPine [Norvasc] 10 mg PO DAILY Discharge Medication List Aspirin EC [Ecotrin Low Dose] 81 mg PO DAILY 02/12/17 [History] Calcium Carbonate [Calcium] 600 mg PO DAILY 11/19/21 [History] Ferrous Sulfate [Iron (65 MG Elemental)] 325 mg PO DAILY 11/19/21 [History] Metoprolol Succinate [Metoprolol Succinate ER] 25 mg PO DAILY 11/19/21 [History] Umeclidinium Brm/Vilanterol Tr [Anoro Ellipta 62.5-25 Mcg INH] 1 puff INHALATION RT-DAILY 11/19/21 [History] Albuterol Inhaler [Ventolin Hfa Inhaler] 1 - 2 puff INHALATION RT-Q6H PRN [History] Atorvastatin Calcium [Lipitor] 80 mg PO HS 03/28/23 [History] Clopidogrel [Plavix] 75 mg PO DAILY 03/28/23 [History] Desvenlafaxine [Pristiq ER] 100 mg PO DAILY 03/28/23 [History] Ergocalciferol [Vitamin D2 (1250 Mcg = 94103 Iu)] 1,250 mcg PO Q14D 03/28/23 [History] Isosorbide Mononitrate ER [Imdur] 60 mg PO DAILY 03/28/23 [History] Losartan [Cozaar] 50 mg PO DAILY 03/28/23 [History] Magnesium Oxide [Mag-Ox] 400 mg PO DAILY 03/28/23 [History] Nitroglycerin Sl Tabs [Nitrostat] 0.4 mg SUBLINGUAL Q5M PRN 03/28/23 [History] amLODIPine [Norvasc] 5 mg PO HS #30 tab 03/29/23 [Rx] oxyCODONE-APAP 10-325MG [Percocet 10-325 mg] 1 tab PO QID PRN 3 Days #12 tab 03/29/23 [Rx] Follow up Appointment(s)/Referral(s): Liseth Kang DO [Doctor of Osteopathic Medicine] - 1 Week Fredy Pope DO [Primary Care Provider] - 1 Week Patient Instructions/Handouts: Oxycodone/Acetaminophen (By mouth), Amlodipine (By mouth) Activity/Diet/Wound Care/Special Instructions: heart healthy diet activity is restricted till you see your doctor resume your same blood pressure medication at home including your Norvasc 5 mg at bed time and follow up with your doctor for further recommendations please Discharge Disposition: HOME WITH HOME HEALTH SERVICES
== END 2023-03-29 14:33 | disposition home health service (06) ==
LOC: EC 00:49 → 6NMEDSUR 05:06 → 5NMEDONC 17:19
PROVIDERS: ADMIT Hospitalist; ATTEND Hospitalist
DX: M16.11 Unilateral primary osteoarthritis, right hip (principal); M70.61 Trochanteric bursitis, right hip; R26.2 Difficulty in walking, not elsewhere classified; E78.5 Hyperlipidemia, unspecified; K21.9 Gastro-esophageal reflux disease without esophagitis; F41.9 Anxiety disorder, unspecified; I12.9 Hypertensive chronic kidney disease with stage 1 through stage 4 chronic kidney disease, or unspecified chronic kidney disease; N18.30 Chronic kidney disease, stage 3 unspecified; F17.200 Nicotine dependence, unspecified, uncomplicated; Z79.82 Long term (current) use of aspirin; Z79.899 Other long term (current) drug therapy; Z88.0 Allergy status to penicillin; Z88.1 Allergy status to other antibiotic agents; Z88.2 Allergy status to sulfonamides
CPT/HCPCS: 96376 ×2; 96372 ×3; 96374; 96375; 99284; 36415; 94640 ×4; 97162; 80048 ×2; 82550; 82553; 83605; 85025; 73502; G0378 ×3; J2270 ×2; J1644 ×2; J2360; J3490; J1170

== ENCOUNTER → 2023-06-23 | Outpatient (CLI) | payer MEDICARE, OTHER ==
--- NOTE | 2023-06-24 15:57 | CTL ---
EXAMINATION TYPE: CT Low Dose Lung DATE OF EXAM ORDERED: 06/23/2023 HISTORY: Vaginal use. Lung cancer screening CT DLP: 61.[address] CTDI: 1.8 mGy Automated exposure control for dose reduction was used. SCREENING VISIT: Initial COMPARISON: None TECHNIQUE: Low dose computed tomography scan was performed through the chest at 1 mm thick sections a nd reconstructed images in the coronal plane at [address] DIAGNOSTIC QUALITY: Satisfactory FINDINGS: LUNG NODULES: Present, detailed below: 1. There is a punctate density in the periphery of the left lung. Series 4 image 124.a 2. There may be a small calcification within the peripheral right lung. Series 4 image 127. LUNGS: COPD: Severity: Mild Fibrosis: Severity: None Lymph nodes: None Other findings: None RIGHT PLEURAL SPACE: Effusion: None Calcification: None Thickening: None Pneumothorax: None LEFT PLEURAL SPACE: Effusion: None Calcification: None Thickening: None Pneumothorax: None HEART: Other: Ascending thoracic aorta at the level the main pulmonary artery measures 3.2 cm. The main pul monary artery at the bifurcation measures 2.5 cm. Heart Size: Normal Coronary calcification: Moderate Pericardial effusion: None OTHER FINDINGS: Upper abdomen: There may be an aortic stent at the edge of the field of view. Left kidney appears atr ophic. Bony thorax: Normal Supraclavicular region: Normal IMPRESSION: No suspicious findings to suggest primary or metastatic neoplasm. FOLLOW UP CT CHEST RECOMMENDATION: Follow-up low-dose CT chest [address] LUNG RAD: Lung-Rad 2 Benign Appearance or Behavior
== END | disposition home or self-care (01) ==
LOC: RADCTMAIN 12:35
PROVIDERS: ATTEND Family Medicine
DX: Z12.2 Encounter for screening for malignant neoplasm of respiratory organs (principal); F17.210 Nicotine dependence, cigarettes, uncomplicated
CPT/HCPCS: 71271

== ENCOUNTER → 2023-10-19 | Outpatient (CLI) | payer MEDICARE, OTHER ==
[2023-10-19 20:55] LABS: Creatinine,Urine Random 182.5 mg/dL
[2023-10-20 01:16] LABS: HCT 38.6 % (37.2-46.3); HGB 12.2 g/dL (12.0-15.0); MCHC 31.6 g/dL (32.0-37.0); MCV 88.7 FL (80.0-97.0); Mean Platelet Volume 9.6 FL (9.5-12.2); NRBC Per 100 WBC 0 X 10*3/uL (0.00-0.01); Platelet Count 271 X 10*3/uL (140-440); RBC 4.35 X 10*6/uL (4.10-5.20); RDW 16.6 % (11.5-14.5); WBC 7.73 X 10*3/uL (4.50-10.00)
[2023-10-20 01:44] LABS: ALT 19 U/L (8-44); AST 18 U/L (13-35); Albumin/Globulin Ratio 1.67 Ratio (1.60-3.17); Alkaline Phosphatase 99 U/L (41-126); BUN/Creat Ratio 15.14 Ratio (12.00-20.00); Blood Urea Nitrogen 31.8 mg/dL (9.0-27.0); Calcium 8.7 mg/dL (8.7-10.3); Carbon Dioxide 23.8 mmol/L (21.6-31.8); Chloride 104 mmol/L (96-109); Globulin 2.4 g/dL (1.6-3.3); Glucose 85 mg/dL (70-110); Magnesium 1.9 mg/dL (1.5-2.4); Phosphorus 4.6 mg/dL (2.4-5.1); Sodium 140 mmol/L (135-145); Total Bilirubin 0.3 mg/dL (0.3-1.2); Total Protein 6.4 g/dL (6.2-8.2)
[2023-10-20 01:47] LABS: Appearance,Urine Cloudy (Clear); Bilirubin,Urine Negative (Negative); Blood,Urine Negative (Negative); Color,Urine Yellow (Yellow); Ketones,Urine Trace (Negative); Nitrite,Urine Negative (Negative); PH, Urine 5.5; Specific Gravity,Urine 1.022 (1.001-1.030)
[2023-10-20 02:02] LABS: Bacteria,Urine 2+ (None Seen); UA Coarse Granular Casts 0-5 /LPF (None Seen); Yeast (UA) Present (None Seen)
[2023-10-20 02:21] LABS: Microalbumin Creatinine Ratio >2458 mg/g Cr (0-30)
== END | disposition home or self-care (01) ==
LOC: LABWHC1 15:52
PROVIDERS: ATTEND Nurse Practitioner Acute Care
DX: N18.32 Chronic kidney disease, stage 3b (principal)
CPT/HCPCS: 36415; 80053; 81001; 82043; 82570; 83735; 84100; 84156; 85027; 87086

== ENCOUNTER → 2023-10-26 | Outpatient (CLI) | payer MEDICARE, OTHER ==
--- NOTE | 2023-10-26 15:13 | US ---
EXAMINATION TYPE: US kidneys/renal and bladder DATE OF EXAM: 10/26/2023 COMPARISON: US 09/09/2019 CLINICAL INDICATION: Female, 63 years old with history of N18.30 CKD, 3B; EXAM MEASUREMENTS: Right Kidney: 10.8 x 3.8 x 4.7 cm Left Kidney: 7.3 x 2.1 x 2.9 cm Right Kidney: 0.9cm cyst superior pole Left Kidney: atrophic, 0.5cm echogenic focus inferior pole, 2 cysts inferior pole 1.1cm and 1.1cm Bladder: wnl Bilateral Jets seen: no Right renal cortex echogenicity is within normal limits. Left kidney atrophic. IMPRESSION: 1. Nonobstructing 5 mm left renal calculus. 2. Atrophic left kidney.
== END | disposition home or self-care (01) ==
LOC: RADUSWWP 14:31
PROVIDERS: ATTEND Internal Medicine Nephrology
DX: N18.30 Chronic kidney disease, stage 3 unspecified
CPT/HCPCS: 76770